=== PATIENT | female | born 2000 | race Caucasian/White ===

== ENCOUNTER 2021-06-28 15:24 | Emergency (ER) | payer MEDICAID, SELFPAY ==
[2021-06-28 15:25] VITALS: BP 101/74; PULSE 78; RESP 18; TEMP 36.8; O2SAT 99; BMI 21.3
[2021-06-28 16:05] LABS: Adenovirus,PCR Not Detected (NotDetected); Coronavirus 229E Not Detected (NotDetected); Coronavirus NL63 Not Detected (NotDetected); Coronavirus OC43 Not Detected (NotDetected); Coronovirus HKU1,PCR Not Detected (NotDetected); Human Metapneumovirus Not Detected (NotDetected)
--- NOTE | 2021-06-28 16:05 | HMH.EDUTC ---
[facility] [place] Disposition Clinical Impression: Strep throat Disposition: Home, Self-Care Condition on Discharge: Good Instructions: Strep Throat, DI for Strep Throat Additional Instructions: Drink plenty of fluids. Take tylenol or ibuprofen for pain or fever. Take the medications as directed. Follow up with your regular doctor. GO TO THE ER FOR ANY WORSENING SYMPTOMS Throw your tooth brush away and get a new one. Quarantine until you know the results of your covid-19 test. If it is positive, the health department should call you and give you further instructions about your length of Quarantine and other thing. Prescriptions: Brompheniramine/Pseudoephed/Dm [Bromfed Dm Cough Syrup] 5 ml PO Q6HP PRN #240 syrup PRN Reason: Cough Transmission Status: [facility] Ondansetron [Zofran 4mg ODT] 4 mg PO Q8HP PRN #12 tab.rapdis PRN Reason: Nausea Transmission Status: Received by [facility] Amoxicillin [Amoxicillin 500mg Tab] 500 mg PO TID 10 Days #30 tab Transmission Status: [facility] Referrals: Provider,Referral, MD [Primary Care Provider] - Time of Disposition: 16:07 Medical Decision Making - Medical Records Medical records reviewed: No: I reviewed the patient's medical records. - Adriel Inquiry Pt receiving controlled substance: No Vital Signs: 06/28/21 15:25 06/28/21 16:12 Temperature 98.3 F 98.3 F Temperature Source Oral Pulse Rate 78 Pulse Rate [Left Brachial] 78 Respiratory Rate 18 18 Blood Pressure 101/74 L Blood Pressure [Left Arm] 101/74 L Blood Pressure Mean [Left Arm] 83 Blood Pressure Source [Left Arm] Automatic Cuff Blood Pressure Position [Left Arm] Sitting 02 Sat by Pulse Oximetry 99 - Lab Data Lab results reviewed: Yes: I reviewed the patient's lab results. Orders (Tests/Meds): ORDERS Category Date Time Status Full Resp Panel w/COVID ([facility]) Routine Lab 06/28/21 15:45 Received [facility] [place] HPI - General Stated complaint: RSV exposure, congestion Time Seen by Provider: 06/28/21 16:05 Mode of Arrival: Ambulatory Source of Information: Patient Limitations: No Limitations Description of Symptoms (Recalled from Triage Doc. by RN): NIKKI C/O CONGESTION, SORE THROAT, COUGH SINCE WEDNESDAY. RECENTLY EXPOSED TO RSV HEENT Symptoms (Recalled from RN notes): Yes Resp Symptoms (Recalled from RN notes): Yes Skin Symptoms (Recalled from RN notes): No MS Symptoms (Recalled from RN notes): No Functional Status (Recalled from RN notes): WNL - History of Present Illness Provider Complaint: She c/o sore throat and feeling bad for the past 2 days. 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 - Related Data Previous Rx's Medication Instructions Recorded Amoxicillin [Amoxicillin 500mg Tab] 500 mg PO TID 10 Days #30 tab 06/28/21 Brompheniramine/Pseudoephed/Dm 5 ml PO Q6HP PRN #240 syrup 06/28/21 [Bromfed Dm Cough Syrup] Ondansetron [Zofran 4mg ODT] 4 mg PO Q8HP PRN #12 tab.rapdis 06/28/21 Allergies Allergy/AdvReac Type Severity Reaction Status Date / Time No Known Allergies Allergy Verified 06/28/21 15:57 - Worker's Comp Is this a Worker's Comp case?: No [facility] History - Hepatitis A Screen Drug use history?: No High risk sexual behaviors?: No History of sexually transmitted infection?: No Currently employed?: No Childcare worker?: No Do you have indoor plumbing?: Yes Do you have electricity?: Yes Attestation statement:: This patient has been screened for Hepatitis A risk factors. I have reviewed the patient's past medical history: Yes ROS Obtained: Yes All systems reviewed & no additional complaints - Constitutional Constitutional: Reports chills, Reports fever(s), Reports poor appetite, Reports malaise - Eyes Eyes: Denies eye discharge - ENT Ears, Nose, Mouth, and Throat: Reports as per HPI - Cardiovascular Cardiovascul
[2021-06-28 16:06] LABS: Bordetella Pertussis Not Detected (NotDetected); Chlamydophila Pneumoniae, PCR Not Detected (NotDetected); Coronavirus 19, PCR Not Detected (NotDetected); Influenza A, PCR Not Detected (NotDetected); Influenza AH1, 2009 Not Detected (NotDetected); Influenza AH1, PCR Not Detected (NotDetected); Influenza AH3,PCR Not Detected (NotDetected); Influenza B, PCR Not Detected (NotDetected); Mycoplasma Pneumoniae, PCR Not Detected (NotDetected); Parainfluenza 1, PCR Not Detected (NotDetected); Parainfluenza 2, PCR Not Detected (NotDetected); Parainfluenza 3, PCR Not Detected (NotDetected); Parainfluenza 4, PCR Not Detected (NotDetected)
[2021-06-28 16:12] VITALS: BP 101/74; PULSE 78; RESP 18; TEMP 36.8; O2SAT 99
[2021-06-28 18:24] LABS: UTC Strep Screen (Rapid) Positive (Negative)
[2021-06-28 22:13] LABS: Respiratory Syncytial Virus Detected (NotDetected); Rhinovirus/Enterovirus Detected (NotDetected)
== END 2021-06-28 16:15 | disposition home or self-care (01) ==
PROVIDERS: Emergency Provider Nurse Practitioner Family
DX: J02.0 Streptococcal pharyngitis (principal); Z20.828 Contact with and (suspected) exposure to other viral communicable diseases
CPT/HCPCS: 87581; 87633; 87798; 87880; 99203; G0463

== ENCOUNTER → 2021-07-22 20:07 | Outpatient (CLI) | payer MEDICAID, SELFPAY | PROVIDERS: Visit Provider Nurse Practitioner Family | DX: Z20.822 Contact with and (suspected) exposure to COVID-19 (principal); U07.1 COVID-19 | CPT/HCPCS: U0003 ==

== ENCOUNTER 2021-09-02 09:55 | Emergency (ER) | payer MEDICAID, SELFPAY ==
[2021-09-02 10:39] VITALS: BP 113/77; PULSE 73; RESP 19; TEMP 36.8; O2SAT 99; BMI 22.2
--- NOTE | 2021-09-02 10:52 | HMH.EDUTC ---
[facility] [place] Disposition Clinical Impression: Strep throat Disposition: Home, Self-Care Condition on Discharge: Good Instructions: Strep Throat, DI for Strep Throat, DI for Acute Bronchitis Additional Instructions: Drink plenty of fluids. Take tylenol or ibuprofen for pain or fever. Take the medications as directed. Follow up with your regular doctor. GO TO THE ER FOR ANY WORSENING SYMPTOMS Throw your tooth brush away and get a new one. Don't start the oral steroids until tomorrow, since you had the shot here today. Prescriptions: Brompheniramine/Pseudoephed/Dm [Bromfed Dm Cough Syrup] 5 ml PO Q6HP PRN #240 ml PRN Reason: Cough [facility] Ondansetron [Zofran 4mg ODT] 4 mg PO Q8HP PRN #12 tab PRN Reason: Nausea Transmission Status: Received by [facility] Cefdinir [Omnicef 300mg Capsule] 300 mg PO BID #20 cap Transmission Status: [facility] predniSONE [Prednisone 20mg Tab] 20 mg PO BID 3 Days #6 tab Transmission Status: Received by [facility] Referrals: Shirley Olson APRN [Primary Care Provider] - Forms: Work/School Release Time of Disposition: 11:37 Medical Decision Making - Medical Records Medical records reviewed: No: I reviewed the patient's medical records. - Adriel Inquiry Pt receiving controlled substance: No Vital Signs: 09/02/21 10:39 09/02/21 11:23 Temperature 98.3 F 98.3 F Temperature Source Oral Pulse Rate 73 Pulse Rate [Left] 73 Respiratory Rate 19 16 Blood Pressure 113/77 Blood Pressure [Right Arm] 113/77 Blood Pressure Mean [Right Arm] 89 02 Sat by Pulse Oximetry 99 - Lab Data Lab results reviewed: Yes: I reviewed the patient's lab results. Lab Results 09/02/21 10:57: Strep Scn Rapid Clinic Positive A 09/02/21 11:39: Chlamy pneumoniae PCR Not detected, Adenovirus (PCR) Not detected, B. pertussis DNA (PCR) Not detected, Coronavirus OC43 (PCR) Not detected, Coronavirus HKU1 (PCR) Not detected, Coronavirus 229E (PCR) Not detected, SARS-CoV-2 (PCR) Not detected, Coronavirus NL63 (PCR) Not detected, Human Metapneumovir PCR Not detected, Influenza A (H1) PCR Not detected, Influ A (H1N1/09) PCR Not detected, Influenza A (H3) PCR Not detected, Influenza Type A (PCR) Not detected, Influenza Type B (PCR) Not detected, M. pneumoniae (PCR) Not detected, Parainfluenza 1 (PCR) Not detected, Parainfluenza 2 (PCR) Not detected, Parainfluenza 3 (PCR) Not detected, Parainfluenza 4 (PCR) Not detected, RSV (PCR) Not detected, Entero/Rhino (PCR) Detected A - Radiology Data #1 Image(s): Chest Image Reviewed: Yes I reviewed the patient's radiology image, Yes I have reviewed radiologist's interpretation Preliminary Findings: Normal/NAD, No Infiltrates Seen PROCEDURE: XR CHEST 2V CLINICAL HISTORY: cough, congestion COMPARISON: No exams were available for comparison FINDINGS: The cardiomediastinal silhouette and pulmonary vascularity are within normal limits. The lungs are clear without infiltrates, suspicious nodules, or pleural effusions. No acute bony abnormalities. IMPRESSION: No acute findings. Dictated by: Casey Lang MD 09/02/2021 11:35 in [facility] HPI - General Stated complaint: cough w/mucus and blood Time Seen by Provider: 09/02/21 11:14 Mode of Arrival: Ambulatory Source of Information: Patient Limitations: No Limitations Description of Symptoms (Recalled from Triage Doc. by RN): pt c/o sore throat, productive cough with sputum and blood and n/v. pt had covid in jul. HEENT Symptoms (Recalled from RN notes): Yes (congestion and sore throat) Resp Symptoms (Recalled from RN notes): Yes (productive cough) Skin Symptoms (Recalled from RN notes): No MS Symptoms (Recalled from RN notes): No Functional Status (Recalled from RN notes): na - History of Present Illness Provider Complaint: She states that for the past 2
[2021-09-02 10:58] LABS: UTC Strep Screen (Rapid) Positive (Negative)
--- NOTE | 2021-09-02 11:12 | XR_ITS ---
PROCEDURE: XR CHEST 2V CLINICAL HISTORY: cough, congestion COMPARISON: No exams were available for comparison FINDINGS: The cardiomediastinal silhouette and pulmonary vascularity are within normal limits. The lungs are clear without infiltrates, suspicious nodules, or pleural effusions. No acute bony abnormalities. IMPRESSION: No acute findings. Dictated by: Casey Lang MD 09/02/2021 11:35 Casey Lang MD in [facility] 09/02/2021 11:35
[2021-09-02 11:23] VITALS: BP 113/77; PULSE 73; RESP 16; TEMP 36.8
[2021-09-02 12:13] LABS: Adenovirus,PCR Not Detected (NotDetected); Bordetella Pertussis Not Detected (NotDetected); Chlamydophila Pneumoniae, PCR Not Detected (NotDetected); Coronavirus 19, PCR Not Detected (NotDetected); Coronavirus 229E Not Detected (NotDetected); Coronavirus NL63 Not Detected (NotDetected); Coronavirus OC43 Not Detected (NotDetected); Coronovirus HKU1,PCR Not Detected (NotDetected); Human Metapneumovirus Not Detected (NotDetected); Influenza A, PCR Not Detected (NotDetected); Influenza AH1, 2009 Not Detected (NotDetected); Influenza AH1, PCR Not Detected (NotDetected); Influenza AH3,PCR Not Detected (NotDetected); Influenza B, PCR Not Detected (NotDetected); Mycoplasma Pneumoniae, PCR Not Detected (NotDetected); Parainfluenza 1, PCR Not Detected (NotDetected); Parainfluenza 2, PCR Not Detected (NotDetected); Parainfluenza 3, PCR Not Detected (NotDetected); Parainfluenza 4, PCR Not Detected (NotDetected); Respiratory Syncytial Virus Not Detected (NotDetected)
[2021-09-02 14:30] LABS: Rhinovirus/Enterovirus Detected (NotDetected)
== END 2021-09-02 11:52 | disposition home or self-care (01) ==
PROVIDERS: Emergency Provider Nurse Practitioner Family; PCP Nurse Practitioner Family
DX: J02.0 Streptococcal pharyngitis (principal)
CPT/HCPCS: 71046; 87581; 87632; 87798; 87880; 99202; C9803; G0463; U0003; U0005

== ENCOUNTER 2021-09-30 14:12 | Emergency (ER) | payer MEDICAID, SELFPAY ==
[2021-09-30 14:16] VITALS: BP 128/91; PULSE 85; RESP 16; TEMP 36.7; O2SAT 97; BMI 22.1
[2021-09-30 14:34] LABS: Microscopic, Urine URINE MICROSCOPIC (MICROSCOPIC)
[2021-09-30 14:35] LABS: Appearance,Urine CLEAR (Clear); Bilirubin,Urine Negative (Negative); Blood, Urine 1+ (Negative); Color,Urine YELLOW (Yellow); Glucose,Urine (UA) Negative (Negative); Ketones,Urine Negative (Negative); Leukocyte Esterase,Urine Negative (Negative); Nitrate,Urine Negative (Negative); Protein,Urine Negative (Negative); Urobilinogen,Urine 0.2 EU/dl (0.2)
[2021-09-30 14:37] LABS: Urine Pregnancy, HCG Qual. Negative (Negative)
[2021-09-30 14:48] LABS: Bacteria,Urine Trace /lpf; RBC,Urine Occasional #/hpf (0-3); Squamous Epithelial Cell,Urine Occasional #/hpf (0-5); WBC,Urine Occasional #/hpf (0-3)
--- NOTE | 2021-09-30 14:50 | HMH.EDGENADL ---
ED Disposition Clinical Impression: Menorrhagia Qualifiers: Menorrhagia type: with regular cycle Qualified Code(s): N92.0 - Excessive and frequent menstruation with regular cycle Disposition: Home, Self-Care Condition on Discharge: Good Instructions: DI for Vaginal Bleeding Additional Instructions: Call your MIXER BLENDER tomorrow for follow-up. Return to the emergency department if any concerns about increasing/severe bleeding or severe pain. Referrals: Provider,Referral, [Primary Care Provider] - - Critical Care Critical Care Time: No Attestation: On 09/30/21, the high probability of a clinically significant, sudden or life threatening deterioration of the following system(s) required my full and direct attention, intervention and personal management. The time I documented below is in addition to time spent performing reported procedures but includes the following listed in this critical care notation. Medical Decision Making - Adriel Inquiry Pt receiving controlled substance: No Vital Signs: 09/30/21 14:16 09/30/21 16:20 Temperature 98.1 F 98.1 F Temperature Source Oral Oral Pulse Rate 82 Pulse Rate [Right Radial] 85 Respiratory Rate 16 18 Blood Pressure 113/57 L Blood Pressure [Right Arm] 128/91 H Blood Pressure Mean [Right Arm] 103 Blood Pressure Source [Right Arm] Automatic Cuff Blood Pressure Position [Right Arm] Sitting 02 Sat by Pulse Oximetry 97 Oxygen Delivery Method Room Air Room Air - Lab Data Lab Results 09/30/21 14:22: Urine Color Yellow, Urine Appearance Clear, Urine pH 7.0, Ur Specific [place] 1.020, Urine Protein Negative, Urine Glucose (UA) Negative, Urine Ketones Negative, Urine Blood 1+, Urine Nitrate Negative, Urine Bilirubin Negative, Urine Urobilinogen 0.2, Ur Leukocyte Esterase Negative, Urine RBC Occasional, Urine WBC Occasional, Ur Squamous Epith Cells Occasional, Urine Bacteria Trace 09/30/21 14:22: Urine HCG, Qual Negative 09/30/21 15:05: WBC 5.7, RBC 3.92 L, Hgb 11.7 L, Hct 34.5 L, MCV 87.9, MCH 29.9, MCHC 34.1, RDW 13.8, Plt Count 242, MPV 8.6, Neut % (Auto) 40.9, Lymph % (Auto) 43.8, [place] % (Auto) 5.4, Eos % (Auto) 8.8, Baso % (Auto) 1.1, Neut # (Auto) 2.4, Lymph # (Auto) 2.5, [place] # (Auto) 0.3, Eos # (Auto) 0.5 H, Baso # (Auto) 0.1 Result diagrams: 09/30/21 15:05 Medical Decision Narrative: The patient states that she is trying to conceive and does not want any sort of hormonal therapy or oral contraceptive pills at this time. She prefers to follow-up with her MIXER BLENDER. General Adult HPI - General Chief complaint: Vaginal Bleeding Stated complaint: heavy vaginal bleeding Time Seen by Provider: 09/30/21 14:40 Mode of Arrival: Ambulatory Limitations: No Limitations Description of Symptoms (Recalled from ER Triage Doc. by RN): Pt reports started her menstrual period on Wednesday of this week. Pt she has went through 2 boxes of tampons since Wednesday. Pt reports large clots coming from vagina. Pt reports cramping more so on the L than the R. Pt reports she called her extruding press adjuster office, states her extruding press adjuster is not in today, staff advised her to come to the ER for evaluation. - History of Present Illness HPI narrative: Heavy vaginal bleeding with clots since yesterday. States she has gone through 2 boxes of tampons. She does not have any history of heavy vaginal bleeding with her menses in the past. She has had a miscarriage in May 2020. No other pregnancies. She is not currently on any control. She stopped taking control pills several months ago. Called her MIXER BLENDER today, her doctor was not in and they advised her to come to the emergency department for evaluation. - Related Data Previous Rx's Medication Instructions Recorded Brompheniramine/Pseudoephed/Dm 5 ml PO Q6HP PRN #240 ml 09/02/21 [Bromfed Dm Cough Syrup] Cefdinir [Omnicef 300mg Capsule] 300 mg PO BID #20 cap 09/02/21 Ondansetron [Zofran 4mg ODT] 4 mg PO Q8HP PRN #12 tab 09/02/21 predni
[2021-09-30 15:29] LABS: Basophils # 0.1 K/mm3 (0-0.2); Basophils % 1.1 % (0.1-2.0); Eosinophils # 0.5 K/mm3 (0.0-0.4); Eosinophils % 8.8 % (0.1-12.0); Hematocrit 34.5 % (37.0-47.0); Hemoglobin 11.7 g/dL (12.2-16.2); Lymphocytes # 2.5 K/mm3 (0.7-4.5); Lymphocytes % 43.8 % (10-50); Mean Corpuscular HGB Conc 34.1 g/dL (31.8-35.4); Mean Corpuscular Hemoglobin 29.9 pg (27.0-31.2); Mean Corpuscular Volume 87.9 fl (81-99); Mean Platelet Volume 8.6 fl (7.4-10.4); Monocytes # 0.3 K/mm3 (0.1-1.0); Monocytes % 5.4 % (1.7-9.3); Neutrophils # 2.4 K/mm3 (1.8-7.8); Neutrophils % 40.9 % (37.0-80.0); Platelet Count 242 K/mm3 (142-424); Red Blood Count 3.92 M/mm3 (4.20-5.40); Red Cell Distribution Width 13.8 % (11.5-17.5); White Blood Count 5.7 K/mm3 (4.5-13.0)
[2021-09-30 16:20] VITALS: BP 113/57; PULSE 82; RESP 18; TEMP 36.7; O2SAT 100
== END 2021-09-30 16:21 | disposition home or self-care (01) ==
PROVIDERS: Emergency Provider Emergency Medicine
DX: N92.0 Excessive and frequent menstruation with regular cycle (principal)
CPT/HCPCS: 81001; 81025; 85025; 99282

== ENCOUNTER → 2021-10-21 20:36 | Outpatient (CLI) | payer MEDICAID, SELFPAY ==
[2021-10-21 20:55] LABS: Adenovirus,PCR Not Detected (NotDetected); Bordetella Pertussis Not Detected (NotDetected); Chlamydophila Pneumoniae, PCR Not Detected (NotDetected); Coronavirus 19, PCR Not Detected (NotDetected); Coronavirus 229E Not Detected (NotDetected); Coronavirus NL63 Not Detected (NotDetected); Coronavirus OC43 Not Detected (NotDetected); Coronovirus HKU1,PCR Not Detected (NotDetected); Human Metapneumovirus Not Detected (NotDetected); Influenza A, PCR Not Detected (NotDetected); Influenza AH1, 2009 Not Detected (NotDetected); Influenza AH1, PCR Not Detected (NotDetected); Influenza AH3,PCR Not Detected (NotDetected); Influenza B, PCR Not Detected (NotDetected); Mycoplasma Pneumoniae, PCR Not Detected (NotDetected); Parainfluenza 1, PCR Not Detected (NotDetected); Parainfluenza 2, PCR Not Detected (NotDetected); Parainfluenza 3, PCR Not Detected (NotDetected); Parainfluenza 4, PCR Not Detected (NotDetected); Respiratory Syncytial Virus Not Detected (NotDetected); Rhinovirus/Enterovirus Not Detected (NotDetected)
== END ==
PROVIDERS: Visit Provider Nurse Practitioner
DX: Z20.822 Contact with and (suspected) exposure to COVID-19 (principal); J06.9 Acute upper respiratory infection, unspecified
CPT/HCPCS: 87581; 87632; 87798; C9803; U0003; U0005

== ENCOUNTER 2021-10-22 11:01 | Emergency (ER) | payer MEDICAID, SELFPAY ==
[2021-10-22 11:27] VITALS: BP 105/59; PULSE 81; RESP 16; TEMP 36.9; O2SAT 99; BMI 21.7
--- NOTE | 2021-10-22 11:40 | HMH.EDUTC ---
[facility] [place] Disposition Clinical Impression: URI (upper respiratory infection) Qualifiers: URI type: unspecified URI Qualified Code(s): J06.9 - Acute upper respiratory infection, unspecified Disposition: Home, Self-Care Condition on Discharge: Good Instructions: Sore Throat, DI for Sinusitis Additional Instructions: *Monitor Temp, Over the counter Motrin or Tylenol as directed/as needed Tylenol every 4 hours and Motrin every 6 hours (as long as your family doctor has told you that you can take it) for fever or pain. and straight to ER if unable to lower temp less than 101.0 after medication given *Warm salt water gargles may help to soothe the throat *Throat Lozenges *Warm fluids like tea with honey may help to soothe the throat *Sleep elevated *Humidifier/Vaporizer Bromfed may cause drowsiness. Know how it effects you (your child) before driving, caring for small child, or sending your child to school. Not other antihistamines/allergy medications while taking bromfed Your throat swab was sent for culture. Those results are typically sent to your primary care. Be sure to follow up in 2-3 days with your family doctor/primary care physician if no improvement so they can review those result and treat if necessary. If you don?t have a primary care doctor, I recommend you get one but in the mean time, you will have to return to a walk in clinic Follow up IMMEDIATELY for new or worsening symptoms or no Noticeable improvement over the next 48-72 hours. 911 for difficulty breathing or swallowing Prescriptions: Brompheniramine/Pseudoephed/Dm [Bromfed Dm Cough Syrup] 5 - 10 ml PO Q46H PRN #200 ml PRN Reason: Cough Transmission Status: Pending to [facility] methylPREDNISolone [Medrol 4mg tab] 4 mg PO DIRECTED #21 tab Transmission Status: Pending to [facility] Azithromycin [Z-Tom 250mg Tab] 250 mg PO DIRECTED #6 tab Transmission Status: Pending to [facility] Referrals: Provider,Referral, [Primary Care Provider] - Medical Decision Making - Adriel Inquiry Pt receiving controlled substance: No Adriel was queried for this patient: No Vital Signs: 10/22/21 11:27 Temperature 98.5 F Temperature Source Oral Pulse Rate [Left] 81 Respiratory Rate 16 Blood Pressure [Right Arm] 105/59 L Blood Pressure Mean [Right Arm] 74 02 Sat by Pulse Oximetry 99 - Lab Data Lab results reviewed: Yes: I reviewed the patient's lab results. [facility] [place] HPI - General Stated complaint: runny nose,sore throat Time Seen by Provider: 10/22/21 11:40 Mode of Arrival: Ambulatory Source of Information: Patient Limitations: No Limitations Description of Symptoms (Recalled from Triage Doc. by RN): pt c/o a cough, congestion and sore throat x4 days. HEENT Symptoms (Recalled from RN notes): Yes (congestion and sore throat) Resp Symptoms (Recalled from RN notes): Yes (cough) Skin Symptoms (Recalled from RN notes): No MS Symptoms (Recalled from RN notes): No Functional Status (Recalled from RN notes): wnl - History of Present Illness Provider Complaint: Patient states that she has been having sinus issues for over a week but for the last 3-4 days she has had a bad sore throat, cough and pressure behind her eyes States that she gets bronchitis sometimes nd feels like it is trying to move into her chest area Statse that she had URP last night and it was negative for everything so she was worried she may have strep throat or sinus infection - Related Data Previous Rx's Medication Instructions Recorded Brompheniramine/Pseudoephed/Dm 5 ml PO Q6HP PRN #240 ml 09/02/21 [Bromfed Dm Cough Syrup] Cefdinir [Omnicef 300mg Capsule] 300 mg PO BID #20 cap 09/02/21 Ondansetron [Zofran 4mg ODT] 4 mg PO Q8HP PRN #12 tab 09/02/21 predniSONE [Prednisone 20mg 20 mg PO BID 3 Days #6 tab 09/02/21 Tab] Azithromycin [Z-Tom 250mg Tab] 250 mg PO DIRECTED #6 tab 10/22/21 Brompheniramine/Pseudoephed/Dm 5 - 10 ml PO
[2021-10-22 11:58] LABS: UTC Strep Screen (Rapid) Negative (Negative)
[2021-10-22 12:00] LABS: UTC Pregnancy Test, Urine Negative (Negative)
[2021-10-22 12:11] VITALS: BP 105/59; PULSE 81; RESP 16; TEMP 36.9
== END 2021-10-22 12:11 | disposition home or self-care (01) ==
PROVIDERS: Emergency Provider Nurse Practitioner
DX: J06.9 Acute upper respiratory infection, unspecified (principal)
CPT/HCPCS: 81025; 87880; 99202; G0463

== ENCOUNTER → 2021-10-31 08:47 | Outpatient (CLI) | payer MEDICAID, SELFPAY ==
[2021-10-31 09:28] LABS: Influenza A, PCR Not Detected (NotDetected); Influenza B, PCR Not Detected (NotDetected)
[2021-10-31 10:21] LABS: Coronavirus 19, PCR Detected (NotDetected)
== END ==
PROVIDERS: Visit Provider Nurse Practitioner
DX: U07.1 COVID-19 (principal)
CPT/HCPCS: C9803; U0003; U0005

== ENCOUNTER 2021-11-28 17:58 | Emergency (ER) | payer MEDICAID, SELFPAY ==
[2021-11-28 19:32] VITALS: BP 101/54; PULSE 92; RESP 14; TEMP 37.4; O2SAT 98; BMI 22.6
--- NOTE | 2021-11-28 19:39 | HMH.EDUTC ---
[facility] [place] Clinical Impression: Abdominal pain Qualifiers: Abdominal location: right lower quadrant Qualified Code(s): R10.31 - Right lower quadrant pain Nausea & vomiting Qualifiers: Vomiting type: unspecified Qualified Code(s): R11.2 - Nausea with vomiting, unspecified Disposition: Home, Self-Care Condition on Discharge: Good Instructions: DI for Diarrhea and Traveler's Diarrhea -- Adult, DI for Diarrhea and Traveler's Diarrhea -- Child, DI for Nausea -- Adult, DI for Nausea -- Child Prescriptions: Ondansetron [Zofran 4mg ODT] 4 mg PO TIDP PRN #12 tab PRN Reason: Nausea Transmission Status: Received by [facility] Referrals: Provider,Referral, [Primary Care Provider] - Medical Decision Making - Medical Records Medical records reviewed: No: I reviewed the patient's medical records. - Adriel Inquiry Pt receiving controlled substance: No Vital Signs: 11/28/21 19:32 11/28/21 21:32 11/28/21 23:18 Temperature 99.4 F 99.2 F 98.7 F Temperature Source Oral Oral Oral Pulse Rate 88 Pulse Rate [Left] 92 H 88 Respiratory Rate 14 18 18 Blood Pressure 108/65 L Blood Pressure [Right Arm] 101/54 L 122/83 Blood Pressure Mean [Right Arm] 69 96 Blood Pressure Source Automatic Cuff Blood Pressure Source [Right Arm] Automatic Cuff Blood Pressure Position Sitting Blood Pressure Position [Right Arm] Sitting 02 Sat by Pulse Oximetry 98 100 Oxygen Delivery Method Room Air - Lab Data Lab results reviewed: Yes: I reviewed the patient's lab results. Lab Results 11/28/21 19:33: Strep Scn Rapid Clinic Negative 11/28/21 19:33: Influenza Type A Ag Negative, Influenza Type B Ag Negative 11/28/21 20:03: Urine Color Dark yellow, Urine Appearance Clear, Urine pH 6.0, Ur Specific [place] > 1.030 H, Urine Protein Trace, Urine Glucose (UA) Negative, Urine Ketones Large, Urine Blood Negative, Urine Nitrate Negative, Urine Bilirubin 1+ A, Urine Urobilinogen 0.2, Ur Leukocyte Esterase Trace, Tst Clinic Negative 11/28/21 20:23: WBC 4.8, RBC 4.40, Hgb 12.9, Hct 38.6, MCV 87.6, MCH 29.3, MCHC 33.5, RDW 13.5, Plt Count 171, MPV 9.6, Neut % (Auto) 62.4, Lymph % (Auto) 27.0, [place] % (Auto) 6.6, Eos % (Auto) 2.9, Baso % (Auto) 1.0, Neut # (Auto) 3.0, Lymph # (Auto) 1.3, [place] # (Auto) 0.3, Eos # (Auto) 0.1, Baso # (Auto) 0.1 11/28/21 20:23: Sodium 134 L, Potassium 4.0, Chloride 99, Carbon Dioxide 27, Anion Gap 12.0, BUN 11, Creatinine 0.60, Estimated Creat Clear 150, Estimated GFR 127, Est GFR ( Amer) 154, Glucose 90, Calcium 9.4, Total Bilirubin 1.7 H, AST 30, ALT 12, Alkaline Phosphatase 37 L, Total Protein 7.6, Albumin 4.7, Globulin 2.9, Albumin/Globulin Ratio 1.6, Amylase 66, Lipase 46 Result diagrams: 11/28/21 20:23 11/28/21 20:23 Orders (Tests/Meds): ED MEDICATIONS Discontinued Medications Generic Name Dose Route Start Last Admin Trade Name Freq PRN Reason Stop Dose Admin Lactated Ringer's 1,000 mls @ 999 mls/hr 11/28/21 21:30 11/28/21 21:29 Lactated Ringer's 1000 Ml Bag IV 11/28/21 22:30 999 mls/hr .Q1H1M GWEN Administration Iopamidol 75 ml 11/28/21 22:11 11/28/21 22:11 Iopamidol-370 (76%);100ml Bottle IV 11/28/21 22:12 75 ml ONCE ONE Administration Ondansetron HCl 4 mg 11/28/21 21:27 11/28/21 21:29 Ondansetron 4mg/2ml Vial IV 11/28/21 21:28 4 mg ONCE ONE Administration Ondansetron HCl 4 mg 11/28/21 22:58 11/28/21 23:11 Ondansetron 4mg Odt SL 11/28/21 22:59 4 mg ONCE ONE Administration Sodium Chloride 10 ml 11/28/21 22:11 11/28/21 22:11 Sodium Chloride 0.9% 10ml Syr (Rad Only) IV 11/28/21 22:12 10 ml ONCE ONE Administration ORDERS Category Date Time Status Strep Screen Confirmation Routine Micro 11/28/21 19:33 Received [facility] [place] HPI - General Stated complaint: vomiting,weak Time Seen by Provider: 11/28/21 19:39 Mode of Arrival: Ambulatory Source of Information: Patient Limitations: No Limitations
[2021-11-28 19:52] LABS: UTC Influenza A Antigen Negative (Negative); UTC Influenza B Antigen Negative (Negative)
[2021-11-28 19:53] LABS: UTC Strep Screen (Rapid) Negative (Negative)
--- NOTE | 2021-11-28 20:07 | PC.NURSE ---
2000 spoke with Fernanda CUI about sending pt over. awaiting room assignment
[2021-11-28 20:25] LABS: Apearance,Urine Clear (Clear); Color,Urine Dark Yellow (Yellow)
[2021-11-28 20:26] LABS: Bilirubin,Urine 1+ (Negative); Blood, Urine Negative (Negative); Glucose,Urine (UA) Negative (Negative); Ketones,Urine Large (Negative); Protein,Urine Trace (Negative); Specific Gravity, Urine > 1.030 (1.005-1.030); UTC Leukocyte Esterase,Urine Trace (Negative); UTC Nitrate,Urine Negative (Negative); UTC Pregnancy Test, Urine Negative (Negative); Urobilinogen,Urine 0.2 EU/dl (0.2)
[2021-11-28 20:33] LABS: Basophils # 0.1 K/mm3 (0-0.2); Eosinophils # 0.1 K/mm3 (0.0-0.4); Eosinophils % 2.9 % (0.1-12.0); Hematocrit 38.6 % (37.0-47.0); Hemoglobin 12.9 g/dL (12.2-16.2); Lymphocytes # 1.3 K/mm3 (0.7-4.5); Mean Corpuscular HGB Conc 33.5 g/dL (31.8-35.4); Mean Corpuscular Hemoglobin 29.3 pg (27.0-31.2); Mean Corpuscular Volume 87.6 fl (81-99); Mean Platelet Volume 9.6 fl (7.4-10.4); Monocytes # 0.3 K/mm3 (0.1-1.0); Monocytes % 6.6 % (1.7-9.3); Neutrophils % 62.4 % (37.0-80.0); Platelet Count 171 K/mm3 (142-424); Red Cell Distribution Width 13.5 % (11.5-17.5); White Blood Count 4.8 K/mm3 (4.5-13.0)
[2021-11-28 20:47] LABS: Alanine Aminotransferase 12 U/L (12-78); Albumin Level 4.7 g/dl (3.5-5.0); Albumin/Globulin Ratio 1.6 (1.1-1.8); Alkaline Phosphatase 37 U/L (38-126); Amylase 66 U/L (30-110); Aspartate Amino Transferase 30 U/L (14-36); Bilirubin,Total 1.7 mg/dl (0.2-1.3); Blood Urea Nitrogen 11 mg/dl (7-17); Calcium 9.4 mg/dl (8.4-10.2); Carbon Dioxide 27 mmol/L (22.0-30.0); Chloride 99 mmol/L (98-107); Creatinine Clearance Estimated 150 mL/min (50-200); Estimated Glomerular Filt Rate 127 ml/min (>60); GFR (African American) 154 ML/MIN (>60); Globulin 2.9 g/dL (1.3-3.2); Glucose 90 mg/dl (74-100); Lipase 46 U/L (23-300); Sodium 134 mmol/L (136-145); Total Protein,Serum 7.6 g/dl (6.3-8.2)
--- NOTE | 2021-11-28 21:09 | PC.NURSE ---
Stephenie called to check on a room assignment in the ED. spoke with Fernanda CUI, saying it would just be a few more minutes.
[2021-11-28 21:32] VITALS: BP 122/83; PULSE 88; RESP 18; TEMP 37.3; O2SAT 100; BMI 22.6
--- NOTE | 2021-11-28 21:47 | CT_ITS ---
PROCEDURE INFORMATION: Exam: CT Abdomen And Pelvis With Contrast Exam date and time: 11/28/2021 9:47 PM Age: 21 years old Clinical indication: Abdominal pain; Localized; Right lower quadrant (rlq); Additional info: Rlq pain concern for appy TECHNIQUE: Imaging protocol: Computed tomography of the abdomen and pelvis with contrast. Radiation optimization: All CT scans at this facility use at least one of these dose optimization techniques: automated exposure control; mA and/or kV adjustment per patient size (includes targeted exams where dose is matched to clinical indication); or iterative reconstruction. Contrast material: ISOVUE; Contrast volume: 75 ml; Contrast route: IV; COMPARISON: CR XR CHEST 2V 09/02/2021 11:20 AM FINDINGS: Lungs: No mass/infiltrate at either lung base. No pleural effusion. Liver: The liver is normal in size and attenuation. No intrahepatic biliary dilitation. Gallbladder and bile ducts: Normal. No calcified stones. No ductal dilation. Gallbladder wall thickness is normal. Pancreas: Normal. No ductal dilation. Spleen: Normal. No splenomegaly. Adrenal glands: Normal. No mass. Kidneys and ureters: Normal. No hydronephrosis. Stomach and bowel: Unremarkable. No obstruction. No mucosal thickening. Small bowel mesentery is normal. Appendix: Unremarkable. Intraperitoneal space: Unremarkable. No free air. No significant fluid collection. Vasculature: Unremarkable. No abdominal aortic aneurysm. Lymph nodes: There are multiple lymph nodes identified within the small bowel mesentery of the right lower quadrant. Largest lymph node within the right lower quadrant measures slightly less than 1 cm in size. This is a nonspecific finding. Urinary bladder: Unremarkable as visualized. Reproductive: The uterus is normal size. There is a well-circumscribed 3.5 x 4.3 x 3.1 cm low-attenuation mass within the left adnexal region. Hounsfield unit attenuation is close to water. This likely represents a prominent left ovarian cyst. This could be further evaluated with ultrasound of the pelvis for further evaluation. Bones/joints: Unremarkable. No acute fracture. Soft tissues: There is a small supraumbilical hernia which contains fat. IMPRESSION: 1. No evidence of acute process within the abdomen or pelvis. 2. There are multiple lymph nodes present within mesentery of the right lower quadrant although these lymph nodes are all less than 1 cm in size. They are likely reactive in nature. The possibility of mesenteric adenitis is less likely however not entirely excluded. 3. Findings within the left adnexal region likely reflect a large left ovarian cyst. Correlation with ultrasound could be performed.
--- NOTE | 2021-11-28 22:22 | HMH.EDGENADL ---
ED Disposition Clinical Impression: Abdominal pain Qualifiers: Abdominal location: right lower quadrant Qualified Code(s): R10.31 - Right lower quadrant pain Nausea & vomiting Qualifiers: Vomiting type: unspecified Qualified Code(s): R11.2 - Nausea with vomiting, unspecified Disposition: Home, Self-Care Condition on Discharge: Good Prescriptions: Ondansetron [Zofran 4mg ODT] 4 mg PO TIDP PRN #12 tab PRN Reason: Nausea Transmission Status: Pending to [id number] Referrals: Provider,Referral, [Primary Care Provider] - - Critical Care Critical Care Time: No Attestation: On 11/28/21, the high probability of a clinically significant, sudden or life threatening deterioration of the following system(s) required my full and direct attention, intervention and personal management. The time I documented below is in addition to time spent performing reported procedures but includes the following listed in this critical care notation. Medical Decision Making - Medical Records Medical records reviewed: Yes: I reviewed the patient's medical records. - Adriel Inquiry Pt receiving controlled substance: No Vital Signs: 11/28/21 19:32 11/28/21 21:32 Temperature 99.4 F 99.2 F Temperature Source Oral Oral Pulse Rate [Left] 92 H 88 Respiratory Rate 14 18 Blood Pressure [Right Arm] 101/54 L 122/83 Blood Pressure Mean [Right Arm] 69 96 Blood Pressure Source [Right Arm] Automatic Cuff Blood Pressure Position [Right Arm] Sitting 02 Sat by Pulse Oximetry 98 100 - Lab Data Lab Results 11/28/21 19:33: Strep Scn Rapid Clinic Negative 11/28/21 19:33: Influenza Type A Ag Negative, Influenza Type B Ag Negative 11/28/21 20:03: Urine Color Dark yellow, Urine Appearance Clear, Urine pH 6.0, Ur Specific [place] > 1.030 H, Urine Protein Trace, Urine Glucose (UA) Negative, Urine Ketones Large, Urine Blood Negative, Urine Nitrate Negative, Urine Bilirubin 1+ A, Urine Urobilinogen 0.2, Ur Leukocyte Esterase Trace, Tst Clinic Negative 11/28/21 20:23: WBC 4.8, RBC 4.40, Hgb 12.9, Hct 38.6, MCV 87.6, MCH 29.3, MCHC 33.5, RDW 13.5, Plt Count 171, MPV 9.6, Neut % (Auto) 62.4, Lymph % (Auto) 27.0, [place] % (Auto) 6.6, Eos % (Auto) 2.9, Baso % (Auto) 1.0, Neut # (Auto) 3.0, Lymph # (Auto) 1.3, [place] # (Auto) 0.3, Eos # (Auto) 0.1, Baso # (Auto) 0.1 11/28/21 20:23: Sodium 134 L, Potassium 4.0, Chloride 99, Carbon Dioxide 27, Anion Gap 12.0, BUN 11, Creatinine 0.60, Estimated Creat Clear 150, Estimated GFR 127, Est GFR ( Amer) 154, Glucose 90, Calcium 9.4, Total Bilirubin 1.7 H, AST 30, ALT 12, Alkaline Phosphatase 37 L, Total Protein 7.6, Albumin 4.7, Globulin 2.9, Albumin/Globulin Ratio 1.6, Amylase 66, Lipase 46 Result diagrams: 11/28/21 20:23 11/28/21 20:23 Orders (Tests/Meds): ED MEDICATIONS Discontinued Medications Generic Name Dose Route Start Last Admin Trade Name Freq PRN Reason Stop Dose Admin Lactated Ringer's 1,000 mls @ 999 mls/hr 11/28/21 21:30 11/28/21 21:29 Lactated Ringer's 1000 Ml Bag IV 11/28/21 22:30 999 mls/hr .Q1H1M GWEN Administration Iopamidol 75 ml 11/28/21 22:11 11/28/21 22:11 Iopamidol-370 (76%);100ml Bottle IV 11/28/21 22:12 75 ml ONCE ONE Administration Ondansetron HCl 4 mg 11/28/21 21:27 11/28/21 21:29 Ondansetron 4mg/2ml Vial IV 11/28/21 21:28 4 mg ONCE ONE Administration Sodium Chloride 10 ml 11/28/21 22:11 11/28/21 22:11 Sodium Chloride 0.9% 10ml Syr (Rad Only) IV 11/28/21 22:12 10 ml ONCE ONE Administration ORDERS Category Date Time Status Strep Screen Confirmation Routine Micro 11/28/21 19:33 Received Medical Decision Narrative: Patient is a 21-year-old female who presents to the ED today for further evaluation of nausea vomiting and abdominal pain. Patient is well-appearing on reevaluation, no acute distress with vital signs that are stable. Patient with right lower quadrant pain in the worse location on e
[2021-11-28 23:18] VITALS: BP 108/65; PULSE 88; RESP 18; TEMP 37.1
== END 2021-11-28 23:22 | disposition home or self-care (01) ==
LOC: UTC 18:01 → ER 21:25
PROVIDERS: Emergency Provider Nurse Practitioner Family
DX: R10.31 Right lower quadrant pain (principal); R50.9 Fever, unspecified
CPT/HCPCS: 74177; 80053; 81003; 81025; 82150; 83690; 85025; 87804; 87880; 96365; 96372; 99283; J2405; Q9967

== ENCOUNTER 2022-02-06 09:07 | Emergency (ER) | payer MEDICAID, SELFPAY ==
[2022-02-06 09:40] VITALS: BP 101/76; PULSE 75; RESP 16; TEMP 37; O2SAT 100; BMI 21.7
--- NOTE | 2022-02-06 09:48 | XR_ITS ---
FINAL REPORT CLINICAL HISTORY: PAIN, heard pop x1 month ago. pain and numb since FINDINGS: RIGHT SHOULDER Three views demonstrate no acute fracture or dislocation. The visualized joint spaces are normally aligned. The soft tissues are unremarkable. IMPRESSION: No acute process. Reviewed, Interpreted and Dictated by Ace Naylor MD Transcribed by Mary Szymanski Authenticated by Ace Naylor MD on 02/06/2022 10:56:23 AM [facility]
--- NOTE | 2022-02-06 10:10 | HMH.EDUTC ---
[facility] Disposition Clinical Impression: Trigger point of right shoulder region Right shoulder pain Qualifiers: Chronicity: unspecified Qualified Code(s): M25.511 - Pain in right shoulder Disposition: Home, Self-Care Condition on Discharge: Good Instructions: Shoulder Tendinopathy, DI for Shoulder Pain Additional Instructions: Rest the extremity, apply heat for 15 minutes as tolerated three or four times per day, Take the medication as prescribed. Follow up with Dr. Faith (orthopedics). I put in a referral but you need to call his office and schedule an appointment. Follow up with your regular doctor. GO TO THE ER FOR ANY WORSENING SYMPTOMS Prescriptions: methylPREDNISolone [Medrol] 4 mg PO DIRECTED 6 Days #21 packet Transmission Status: Received by [id number] Referrals: Chery Olson APRN [Primary Care Provider] - Time of Disposition: 10:39 Medical Decision Making - Medical Records Medical records reviewed: No: I reviewed the patient's medical records. - Adriel Inquiry Pt receiving controlled substance: No Vital Signs: 02/06/22 09:40 02/06/22 10:37 Temperature 98.6 F 98.6 F Temperature Source Oral Pulse Rate 75 Pulse Rate [Left Brachial] 75 Respiratory Rate 16 16 Blood Pressure 101/76 L Blood Pressure [Left Arm] 101/76 L Blood Pressure Mean [Left Arm] 84 Blood Pressure Source [Left Arm] Automatic Cuff Blood Pressure Position [Left Arm] Sitting 02 Sat by Pulse Oximetry 100 Oxygen Delivery Method Room Air [facility] HPI - General Stated complaint: right shoulder pains, no accident Time Seen by Provider: 02/06/22 10:10 Mode of Arrival: Ambulatory Source of Information: Patient Limitations: No Limitations Description of Symptoms (Recalled from Triage Doc. by RN): PATIENT C/O RIGHT SHOULDER PAIN AND NUMBNESS X 3 WEEKS. 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 She denies any known injury. She has been having to do more labor with that shoulder and arm at her new job. She states that her symptoms are worse after she has worked a shift of work. - Related Data Previous Rx's Medication Instructions Recorded methylPREDNISolone [Medrol] 4 mg PO DIRECTED 6 Days #21 02/06/22 packet Allergies Allergy/AdvReac Type Severity Reaction Status Date / Time No Known Allergies Allergy Verified 07/22/21 18:15 - Worker's Comp Is this a Worker's Comp case?: No [facility] History - Hepatitis A Screen Drug use history?: No High risk sexual behaviors?: No History of sexually transmitted infection?: No Currently employed?: No Childcare worker?: No Do you have indoor plumbing?: Yes Do you have electricity?: Yes Attestation statement:: This patient has been screened for Hepatitis A risk factors. I have reviewed the patient's past medical history: Yes Laterality Cases: Bilateral: Myringotomy (Ear Tubes) Other Surgeries: Yes: Dilation and Curettage - Social History Smoking Status: Never smoker Alcohol Intake: never Occupational Status: other Family Hx:: Non-contributory ROS Obtained: Yes All systems reviewed & no additional complaints - Constitutional Constitutional: Denies chills, Denies fever(s) - ENT Ears, Nose, Mouth, and Throat: Denies dizziness, Denies otalgia, Denies sore throat - Cardiovascular Cardiovascular: Denies chest pain - Respiratory Respiratory: Denies chest congestion, Denies cough Physical Exam - General General appearance: alert, in no apparent distress - Head Head exam: atraumatic, nor
[2022-02-06 10:37] VITALS: BP 101/76; PULSE 75; RESP 16; TEMP 37; O2SAT 100
== END 2022-02-06 10:43 | disposition home or self-care (01) ==
PROVIDERS: Emergency Provider Nurse Practitioner Family; PCP Nurse Practitioner Family
DX: M25.511 Pain in right shoulder (principal); R20.0 Anesthesia of skin
CPT/HCPCS: 73030; 99212; G0463

== ENCOUNTER → 2022-03-17 14:06 | Outpatient (CLI) | payer MEDICAID, SELFPAY ==
--- NOTE | 2022-03-17 14:10 | XR_ITS ---
FINAL REPORT CLINICAL HISTORY: 3 view for shoulder pain, specialized views for Dr Faith. FINDINGS: RIGHT SHOULDER: 3 views of the right shoulder were obtained. There is no acute fracture or dislocation. There is mild elevation of the distal clavicle. There is no soft tissue abnormality. IMPRESSION: Mild elevation of the distal clavicle. Mild AC joint separation cannot be excluded. Reviewed, Interpreted and Dictated by Migel English III, MD Transcribed by Stuart Lieberman Authenticated by Migel Egnlish III, MD on 03/17/2022 03:54:[address] [facility]
== END ==
PROVIDERS: PCP Nurse Practitioner Family; Visit Provider Orthopaedic Surgery
DX: M25.511 Pain in right shoulder (principal)
CPT/HCPCS: 73030

== ENCOUNTER 2022-09-29 09:28 | Emergency (ER) | payer MEDICAID, SELFPAY ==
[2022-09-29] VITALS (7 sets, daily range): BP systolic 119–124; BP diastolic 66–85; PULSE 60–81; RESP 18–20; TEMP 36.4; O2SAT 99–100; BMI 21.7
--- NOTE | 2022-09-29 09:48 | HMH.EDGENADL ---
Discharge Plan Disposition Patient Disposition: Home, Self-Care Condition: Good Prescriptions Prescriptions: No Action ibuprofen 800 mg tablet 800 mg PO Q8H 14 Days Qty: 42 0RF Referrals Follow up/Referrals: Chery Olson APRN [Primary Care Provider] - See instructions Activity Restrictions/Add. Instructions Additional Instructions/Restrictions: Return immediately for worsening abdominal pain or other concerns. You may take Tylenol as needed for discomfort. Follow-up as scheduled with your OB doctor. Clinical Impressions Clinical Impression: Abdominal pain Discharge ED Provider: Poncho Chaney General Adult HPI General Chief complaint: PAIN Stated complaint: 7 weeks antepartum RT side abd pain Time Seen by Provider: 09/29/22 09:30 Mode of Arrival: Ambulatory Source of Information: Patient Limitations: No Limitations Description of Symptoms (Recalled from ER Triage Doc. by RN): c/o right upper quad pain that started 4-5 days ago with pain coming and going and get worse after she eats certain things. pt is approx 7 weeks History of Present Illness HPI narrative: Patient presents with a 5-day history of intermittent right sided abdominal discomfort. She states the discomfort is predominantly in the right upper quadrant. There is been no nausea vomiting or diarrhea she denies fever she denies hematuria or dysuria. She states the pain is mild to moderate and exacerbated occasionally with eating food. She is approximately 7 weeks by dates. Related Data Previous Rx's Medication Instructions Recorded ibuprofen 800 mg tablet 800 mg PO Q8H 2 weeks #42 tabs 03/17/22 Allergies Allergy/AdvReac Type Severity Reaction Status Date / Time No Known Allergies Allergy Verified 03/17/22 15:55 PFSH PFSH Social History Smoking Status: Never smoker alcohol intake: never current occupational status: employed Travel in the last 8 weeks: None ROS Obtained: Yes All systems reviewed & no additional complaints except as documented Constitutional Constitutional: Reports system reviewed and no additional complaints, except as documented Eyes Eyes: Reports system reviewed and no additional complaints, except as documented ENT Ears, Nose, Mouth, and Throat: Reports system reviewed and no additional complaints, except as documented Cardiovascular Cardiovascular: Reports system reviewed and no additional complaints, except as documented Respiratory Respiratory: Reports system reviewed and no additional complaints, except as documented Gastrointestinal Gastrointestingal: Reports system reviewed and no additional complaints, except as documented Genitourinary Female Genitourinary: Reports system reviewed and no additional complaints, except as documented Musculoskeletal Musculoskeletal: Reports system reviewed and no additional complaints, except as documented Integumentary/Breasts Skin/Breast: Reports system reviewed and no additional complaints, except as documented Neurologic Neurologic: Reports system reviewed and no additional complaints, except as documented Endocrine Endocrine: Reports system reviewed and no additional complaints, except as documented Hematologic/Lymphatic Henatologic/Lymphatic: Reports system reviewed and no additional complaints, except as documented Allergic/Immunologic Allergic/Immunologic: Reports system reviewed and no additional complaints, except as documented Physical Exam General General appearance: alert and in no apparent distress Head Head exam: atraumatic Eye Eye exam: Present normal appearance ENT ENT exam: Present normal exam Neck Neck exam: Present normal inspection Chest Chest inspection: Present normal inspection Respiratory Respiratory exam: Present normal lung sounds bilaterally Cardiovascular Cardiovascular exam: Present regular rate and normal rhythm Abdominal Exam Abdominal exam: Present soft and tenderness (There is mild right upper q
[2022-09-29 10:12] LABS: Basophils # 0.1 K/mm3 (0-0.2); Eosinophils # 0.2 K/mm3 (0.0-0.4); Eosinophils % 4.2 % (0.1-12.0); Hematocrit 33.6 % (37.0-47.0); Hemoglobin 11.5 g/dL (12.2-16.2); Lymphocytes # 2.1 K/mm3 (0.7-4.5); Lymphocytes % 36.4 % (10-50); Mean Corpuscular HGB Conc 34.1 g/dL (31.8-35.4); Mean Corpuscular Hemoglobin 29.7 pg (27.0-31.2); Mean Corpuscular Volume 87.2 fl (81-99); Mean Platelet Volume 8.4 fl (7.4-10.4); Monocytes # 0.3 K/mm3 (0.1-1.0); Neutrophils % 52.4 % (37.0-80.0); Platelet Count 219 K/mm3 (142-424); Red Blood Count 3.86 M/mm3 (4.20-5.40); Red Cell Distribution Width 13.8 % (11.5-17.5); White Blood Count 5.7 K/mm3 (4.8-10.8)
[2022-09-29 10:12] LABS: Microscopic, Urine URINE MICROSCOPIC (MICROSCOPIC)
[2022-09-29 10:19] LABS: Appearance,Urine CLEAR (Clear); Bilirubin,Urine Negative (Negative); Blood, Urine Negative (Negative); Color,Urine YELLOW (Yellow); Glucose,Urine (UA) Negative (Negative); Ketones,Urine Negative (Negative); Leukocyte Esterase,Urine Negative (Negative); Nitrate,Urine Negative (Negative); PH,Urine 7.5 (5.0-8.5); Protein,Urine Negative (Negative); Specific Gravity, Urine 1.015 (1.005-1.030); Urobilinogen,Urine 0.2 EU/dl (0.2)
[2022-09-29 10:20] LABS: Chloride 106 mmol/L (98-107); Potassium 4.3 mmoL/L (3.5-5.1); Sodium 137 mmol/L (136-145)
[2022-09-29 10:22] LABS: Alanine Aminotransferase 10 U/L (12-78); Aspartate Amino Transferase 27 U/L (14-36); Blood Urea Nitrogen 6 mg/dl (7-17); Creatinine Clearance Estimated 172 mL/min (50-200); Estimated Glomerular Filt Rate 156 ml/min (>60); GFR (African American) 188 ML/MIN (>60)
[2022-09-29 10:23] LABS: Albumin Level 4.2 g/dl (3.5-5.0); Albumin/Globulin Ratio 1.6 (1.1-1.8); Alkaline Phosphatase 29 U/L (38-126); Anion Gap 14.3 mEq/L (5-15); Bilirubin,Total 0.5 mg/dl (0.2-1.3); Calcium 9.1 mg/dl (8.4-10.2); Carbon Dioxide 21 mmol/L (22.0-30.0); Globulin 2.6 g/dL (1.3-3.2); Glucose 93 mg/dl (74-100); Lipase 70 U/L (23-300); Total Protein,Serum 6.8 g/dl (6.3-8.2)
[2022-09-29 10:32] LABS: Bacteria,Urine Trace /lpf
[2022-09-29 10:40] LABS: HCG,Quantitative 3023 mIU/ml (0-5.42)
--- NOTE | 2022-09-29 10:49 | US_ITS ---
FINAL REPORT CLINICAL HISTORY: r/o ectopic FINDINGS: Transvaginal sonographic images of the pelvis were obtained. There is a small anechoic intrauterine focus. No pole is identified. There is no cardiac activity. Findings are indeterminate, may represent early gestational sac measuring 7 x 4 mm. There is a complex irregular hypoechoic focus in the lower uterine segment which may be related to mild hemorrhage. The ovaries are unremarkable. IMPRESSION: Questionable early intrauterine gestational sac. Follow-up quantitative beta HCG and ultrasound is recommended. Hypoechoic debris in the lower uterine segment, may be related to small amount hemorrhage. Reviewed, Interpreted and Dictated by Ace Naylor MD Transcribed by Lorri Wyman Authenticated and [facility]
--- NOTE | 2022-09-29 10:49 | US_ITS ---
FINAL REPORT CLINICAL HISTORY: ruq pain FINDINGS: RIGHT UPPER QUADRANT ULTRASOUND Sonographic images of the right upper quadrant were obtained. The pancreas is partially obscured.The liver has an unremarkable appearance.The gallbladder appears normal without evidence of gallstones.The common duct is normal. Limited images of the right kidney are normal. IMPRESSION: No acute process. Reviewed, Interpreted and Dictated by Ace Naylor MD Transcribed by Lorri Wyman Authenticated and [facility]
--- NOTE | 2022-09-29 11:22 | PC.NURSE ---
Notified rad of US orders
--- NOTE | 2022-09-29 11:22 | PC.NURSE ---
Rounded on pt and updated on POC. No new needs at this time
--- NOTE | 2022-09-29 11:23 | PC.NURSE ---
PT going to rad
--- NOTE | 2022-09-29 12:24 | PC.NURSE ---
pt returned from rad
== END 2022-09-29 14:38 | disposition home or self-care (01) ==
PROVIDERS: Emergency Provider Emergency Medicine; PCP Nurse Practitioner Family
DX: O26.891 Other specified pregnancy related conditions, first trimester (principal); R10.9 Unspecified abdominal pain; Z3A.01 Less than 8 weeks gestation of pregnancy
CPT/HCPCS: 76705; 76817; 80053; 81001; 83690; 84702; 85025; 99284

== ENCOUNTER 2023-01-14 08:05 | Emergency (ER) | payer BC, SELFPAY ==
[2023-01-14 08:15] VITALS: BP 108/43; PULSE 75; RESP 20; TEMP 36.8; O2SAT 99; BMI 21.9
--- NOTE | 2023-01-14 08:32 | EXP.UTC ---
Discharge Plan Disposition Patient Disposition: Home, Self-Care Condition: Good Prescriptions Prescriptions: New ofloxacin 0.3 % drops See Rx Instructions .ROUTE .COMPLEX Qty: 5 0RF Rx Instructions: put 2 drps into left eye every 2 h x 2 days, then 1 drp 4 times/day days 3-7 cephalexin 500 mg capsule 500 mg PO QID Qty: 40 0RF Referrals Follow up/Referrals: Chery Olson APRN [Primary Care Provider] - See instructions Activity Restrictions/Add. Instructions Additional Instructions/Restrictions: Use the eye drops as directed. Take the oral antibiotics as directed. Apply warm wet compresses to your left eye 4 times per day for the next few days. Strict hand washing in the house hold, because conjunctivitis is very contagious. Follow up with your regular doctor. GO TO THE ER FOR ANY WORSENING SYMPTOMS OR CONCERNS Clinical Impressions Clinical Impression: Hordeolum of left eye Stand Alone Forms Stand Alone Forms: Work/School Release Instructions Patient Instructions: How to Instill Eye Drops, Hordeolum, DI for Hordeolum Discharge ED Provider: Simeon Page [facility] General Stated complaint: LT eye inflammation Mode of Arrival: Ambulatory Source of Information: Patient Limitations: No Limitations Time Seen by Provider: 01/14/23 08:24 Description of Symptoms (Recalled from Triage Doc. by RN): inflammation of left eye thinks maybe a stye HEENT Symptoms (Recalled from RN notes): Yes Resp Symptoms (Recalled from RN notes): No Skin Symptoms (Recalled from RN notes): No MS Symptoms (Recalled from RN notes): No Functional Status (Recalled from RN notes): n/a History of Present Illness Provider Complaint: She states that for the past 3 days she has had left eye irritation, redness, and swelling of an area on her upper eye lid. She denies any injury or foreign body. She has been exposed to pink eye recently. Related Data Previous Rx's Medication Instructions Recorded cephalexin 500 mg capsule 500 mg PO QID #40 caps 01/14/23 ofloxacin 0.3 % eye drops See Rx Instructions ophthalmic 01/14/23 (eye) .COMPLEX #5 mL Allergies Allergy/AdvReac Type Severity Reaction Status Date / Time No Known Allergies Allergy Verified 01/14/23 08:25 Worker's Comp Is this a Worker's Comp case?: No PFSH PFSH Disclaimer: The information contained in this section may have been updated after the patient was seen, as this information can be updated by other users. Social History Smoking Status: Never smoker alcohol intake: never current occupational status: employed Travel in the last 8 weeks: None ROS Obtained: Yes All systems reviewed & no additional complaints except as documented Constitutional Constitutional: Denies chills and Denies fever(s) Eyes Eyes: Denies blurry vision, Denies change in vision and Reports eye discharge ENT Ears, Nose, Mouth, and Throat: Denies dizziness, Denies otalgia and Denies sore throat Cardiovascular Cardiovascular: Denies chest pain Respiratory Respiratory: Denies shortness of breath, Denies chest congestion, Denies cough, Denies stridor and Denies wheezing Gastrointestinal Gastrointestingal: Denies nausea or vomiting Musculoskeletal Musculoskeletal: Reports system reviewed and no additional complaints, except as documented and Denies arthralgias Integumentary/Breasts Skin/Breast: Denies rash Neurologic Neurologic: Denies dizziness and Denies paresthesias Allergic/Immunologic Allergic/Immunologic: Denies wheezing Physical Exam General General appearance: alert and in no apparent distress Head Head exam: atraumatic, normocephalic and normal inspection Eye Eye exam: Present PERRL, EOMI, conjunctival redness, conjunctival injection and discharge ENT ENT exam: Present normal exam, normal oropharynx, mucous membranes moist, TM's normal bilaterally and normal external ear exam Neck Neck
[2023-01-14 09:14] VITALS: BP 108/43; PULSE 75; RESP 20; TEMP 36.8; O2SAT 99
== END 2023-01-14 09:13 | disposition home or self-care (01) ==
PROVIDERS: Emergency Provider Nurse Practitioner Family; PCP Nurse Practitioner Family
DX: H00.014 Hordeolum externum left upper eyelid (principal)
CPT/HCPCS: 99212; 99213; G0463

== ENCOUNTER 2023-03-06 05:33 | Outpatient (CLI) | payer BC, SELFPAY ==
[2023-03-06 05:41] VITALS: BMI 23.8
[2023-03-06 05:53] LABS: Microscopic, Urine URINE MICROSCOPIC (MICROSCOPIC)
[2023-03-06 06:04] LABS: Appearance,Urine CLEAR (Clear); Bilirubin,Urine Negative (Negative); Blood, Urine Negative (Negative); Color,Urine YELLOW (Yellow); Glucose,Urine (UA) Negative (Negative); Ketones,Urine Negative (Negative); Leukocyte Esterase,Urine TRACE (Negative); Nitrate,Urine Negative (Negative); Protein,Urine Negative (Negative); Specific Gravity, Urine <= 1.005 (1.005-1.030); Urobilinogen,Urine 0.2 EU/dl (0.2)
[2023-03-06 06:07] VITALS: BP 119/76; PULSE 72; RESP 18; TEMP 36.6; O2SAT 99
[2023-03-06 06:08] VITALS: BP 119/76; PULSE 72; RESP 18; TEMP 36.6; O2SAT 99; BMI 23.8
[2023-03-06 06:16] LABS: Benzodiazepines Screen,Urine Negative ng/ml (<200)
[2023-03-06 06:17] LABS: Amphetamine/Metha Screen,Urine Negative ng/ml (<1000); Barbiturates Screen,Urine Negative ng/ml (<200)
[2023-03-06 06:18] LABS: Bacteria,Urine Trace /lpf; Cannabinoid Screen,Urine Negative ng/ml (<50); WBC,Urine Occasional #/hpf (0-3)
[2023-03-06 06:19] LABS: Cocaine Screen,Urine Negative ng/ml (<300); Methadone Screen,Urine Negative ng/ml (<300)
[2023-03-06 06:20] LABS: Opiate Screen,Urine Negative ng/ml (<300); Phencyclidine Screen,Urine Negative ng/ml (<25)
--- NOTE | 2023-03-06 07:00 | US_ITS ---
PROCEDURE INFORMATION: Exam: US Abdomen, Limited; Right Upper Quadrant Exam date and time: 03/06/2023 9:00 AM Age: 23 years old Clinical indication: Nausea and vomiting; Abdominal pain; Generalized; ; Additional info: Ruq pain TECHNIQUE: Imaging protocol: Real time ultrasound of the abdomen with image documentation. Limited exam focused on the right upper quadrant. COMPARISON: No relevant prior studies available. FINDINGS: Liver: Normal echotexture. No significant intrahepatic biliary ductal dilation. Gallbladder: The gallbladder is adequately distended without evidence of gallstones. Normal wall thickness without pericholecystic fluid. Sonographic Kelly's sign is negative. Biliary ducts: Common duct: 2 mm. Pancreas: Visualized pancreas normal. Right kidney: Measures 10.9 cm and demonstrates severe hydronephrosis and proximal hydroureter. Otherwise normal echotexture, normal renal cortical thickness without nephrolithiasis. Other findings: No evidence of ascites. IMPRESSION: 1. Severe RIGHT hydronephrosis and proximal hydroureter consistent with mid-distal ureter obstruction. 2. Recommend correlation with pertinent clinical history and follow-up as indicated.
[2023-03-06 07:09] LABS: Basophils % 0.3 % (0.1-2.0); Eosinophils # 0.3 K/mm3 (0.0-0.4); Eosinophils % 3.1 % (0.1-12.0); Hematocrit 32.1 % (37.0-47.0); Hemoglobin 10.6 g/dL (12.2-16.2); Lymphocytes # 2.1 K/mm3 (0.7-4.5); Lymphocytes % 25.9 % (10-50); Mean Corpuscular HGB Conc 33.1 g/dL (31.8-35.4); Mean Corpuscular Hemoglobin 29.9 pg (27.0-31.2); Mean Corpuscular Volume 90.3 fl (81-99); Mean Platelet Volume 8.8 fl (7.4-10.4); Monocytes # 0.6 K/mm3 (0.1-1.0); Monocytes % 6.8 % (1.7-9.3); Neutrophils # 5.3 K/mm3 (1.8-7.8); Neutrophils % 63.8 % (37.0-80.0); Platelet Count 187 K/mm3 (142-424); Red Blood Count 3.55 M/mm3 (4.20-5.40); White Blood Count 8.2 K/mm3 (4.8-10.8)
[2023-03-06 07:13] LABS: Chloride 105 mmol/L (98-107); Potassium 3.7 mmoL/L (3.5-5.1); Sodium 135 mmol/L (136-145)
[2023-03-06 07:16] LABS: Alanine Aminotransferase 12 U/L (12-78); Albumin Level 3.4 g/dl (3.5-5.0); Albumin/Globulin Ratio 1.1 (1.1-1.8); Alkaline Phosphatase 50 U/L (38-126); Anion Gap 7.7 mEq/L (5-15); Aspartate Amino Transferase 23 U/L (14-36); Bilirubin,Total 0.5 mg/dl (0.2-1.3); Blood Urea Nitrogen 5 mg/dl (7-17); Carbon Dioxide 26 mmol/L (22.0-30.0); Creatinine Clearance Estimated 186 mL/min (50-200); Estimated Glomerular Filt Rate 154 ml/min (>60); GFR (African American) 187 ML/MIN (>60); Total Protein,Serum 6.4 g/dl (6.3-8.2)
[2023-03-06 07:17] LABS: Amylase 84 U/L (30-110); Calcium 8.2 mg/dl (8.4-10.2); Glucose 82 mg/dl (74-100); Lipase 60 U/L (23-300)
--- NOTE | 2023-03-06 07:22 | ECG_ITS ---
APPROVED REPORT Exam: Resting ECG HR:67 bpm ECG Measurements Heart Rate 67 AXES OH 147 P 13 QRSd 84 QRS 70 QT 386 T 17 QTc 402 Conclusion SINUS RHYTHM NONSPECIFIC T-WAVE ABNORMALITY BORDERLINE ECG UNCONFIRMED REPORT Electronically signed by : Jaylon Umana MD 03/06/2023 15:38:54
--- NOTE | 2023-03-06 09:31 | EXP.HPDC ---
General Admission date:: 03/06/23 Discharge date: 03/06/23 *Admission Date: 03/06/23 *Chief complaint: Sudden onset shortness of air and RUQ and right upper back pain *History of present illness: Mrs Hitesh Rebolledo is a 23 yo at 27w2d who presents to [facility] for shortness of air and RUQ/right upper back pain that woke her from sleep around 0200 this morning. She is an unattached patient. She receives care at [facility] in [place]. She admits she has been having some right back pain at her visits but this morning at 0200 pain increased and she felt short of air. Denies fever/chills, chest pain and palpitations. Denies contractions, leakage of fluid and vaginal bleeding. Baby is very active. She denies past medical history of asthma. [facility] Disclaimer: The information contained in this section may have been updated after the patient was seen, as this information can be updated by other users. Medical History Hordeolum of left eye Hydronephrosis of right kidney with 27 completed weeks gestation Renal colic on right side RUQ abdominal pain Social History Smoking Status: Never smoker alcohol intake: never current occupational status: employed Travel in the last 8 weeks: None Review of Systems Review of Systems Review of systems:: pertinent systems reviewed and negative unless documented below *Cardiovascular Cardiovascular: Reports dyspnea *Respiratory Respiratory: Reports dyspnea *Gastrointestinal Gastrointestinal: Reports abdominal pain *Musculoskeletal Musculoskeletal: Reports back pain Exam Data for Last 24 hours Vital signs and Labs for Last 24 Hours: Temp Pulse Resp BP Pulse Ox 97.8 F 72 18 119/76 99 03/06/23 06:08 03/06/23 06:08 03/06/23 06:08 03/06/23 06:08 03/06/23 06:08 Laboratory Results - last 24 hr 03/06/23 05:52: Urine Color Yellow, Urine Appearance Clear, Urine pH 7.0, Ur Specific [place] <= 1.005, Urine Protein Negative, Urine Glucose (UA) Negative, Urine Ketones Negative, Urine Blood Negative, Urine Nitrate Negative, Urine Bilirubin Negative, Urine Urobilinogen 0.2, Ur Leukocyte Esterase Trace, Urine RBC None, Urine WBC Occasional, Ur Squamous Epith Cells 3-5, Urine Bacteria Trace 03/06/23 05:52: Urine Opiates Screen Negative, Urine Methadone Screen Negative, Ur Barbituates Screen Negative, Ur Phencyclidine Scrn Negative, Ur Amphetamines Screen Negative, U Benzodiazepines Scrn Negative, Urine Cocaine Screen Negative, U Marijuana (THC) Screen Negative 03/06/23 07:00: Amylase 84, Lipase 60 03/06/23 07:00: WBC 8.2, RBC 3.55 L, Hgb 10.6 L, Hct 32.1 L, MCV 90.3, MCH 29.9, MCHC 33.1, RDW 13.0, Plt Count 187, MPV 8.8, Neut % (Auto) 63.8, Lymph % (Auto) 25.9, [place] % (Auto) 6.8, Eos % (Auto) 3.1, Baso % (Auto) 0.3, Neut # (Auto) 5.3, Lymph # (Auto) 2.1, [place] # (Auto) 0.6, Eos # (Auto) 0.3, Baso # (Auto) 0.0 03/06/23 07:00: Sodium 135 L, Potassium 3.7, Chloride 105, Carbon Dioxide 26, Anion Gap 7.7, BUN 5 L, Creatinine 0.50 L, Estimated Creat Clear 186, Estimated GFR 154, Est GFR ( Amer) 187, Glucose 82, Calcium 8.2 L, Total Bilirubin 0.5, AST 23, ALT 12, Alkaline Phosphatase 50, Total Protein 6.4, Albumin 3.4 L, Globulin 3.0, Albumin/Globulin Ratio 1.1 I & O for Last 24 hours: Intake & Output 03/03/23 03/04/23 03/05/23 03/06/23 23:59 23:59 23:59 23:59 Weight 147 lb 6 oz Constitutional Constitutional: no acute distress *Routine HEENT Exam Head: Present normocephalic and atraumatic Eye: Absent conjunctivae pink ENT: Present mucous membranes moist and dentition normal *Routine Neck Exam Neck: Present full ROM *Routine Respiratory Exam Respiratory: Present CTA bilaterally and normal respiratory effort *Routine Cardiovascular Exam Cardiovascular: Present RRR *Routine Abdominal Exam Abdominal: Present soft (Gravid); Absent tenderness *Ro
== END 2023-03-06 10:25 | disposition home or self-care (01) ==
LOC: OBOUT 05:35 → OB 05:36
PROVIDERS: PCP Nurse Practitioner Family; Visit Provider Obstetrics & Gynecology
DX: O26.892 Other specified pregnancy related conditions, second trimester (principal); Z3A.27 27 weeks gestation of pregnancy; R10.11 Right upper quadrant pain
CPT/HCPCS: 59025; 76705; 80053; 80305; 81001; 82150; 83690; 85025; 93005; 96365; 96367; G0463

== ENCOUNTER 2023-12-27 08:59 | Emergency (ER) | payer BC, SELFPAY ==
[2023-12-27 10:40] VITALS: BP 112/76; PULSE 76; RESP 21; TEMP 37; O2SAT 100; BMI 25.0
--- NOTE | 2023-12-27 10:56 | ED_ITS ---
Discharge Plan Disposition Patient Disposition: Home, Self-Care Condition: Good Prescriptions Prescriptions: No Action ofloxacin 0.3 % drops See Rx Instructions .ROUTE .COMPLEX Qty: 5 0RF Rx Instructions: put 2 drps into left eye every 2 h x 2 days, then 1 drp 4 times/day days 3-7 cephalexin 500 mg capsule 500 mg PO QID Qty: 40 0RF hydrocodone-acetaminophen 5-325 mg tablet 1 tab PO Q6H PRN (Reason: pain) Qty: 8 0RF Referrals Follow up/Referrals: Chery Olson APRN [Primary Care Provider] - See instructions Activity Restrictions/Add. Instructions Additional Instructions/Restrictions: *Monitor Temp, Over the counter Motrin or Tylenol as directed/as needed Tylenol every 4 hours and Motrin every 6 hours (as long as your family doctor has told you that you can take it) for fever or pain. and straight to ER if unable to lower temp less than 101.0 after medication given *Humidifier/Vaporizer Follow up IMMEDIATELY for new or worsening symptoms or no Noticeable improvement over the next 48-72 hours. 911 for difficulty breathing or swallowing You were tested for today for Upper Respiratory Panel with COVID19 your test result should be back in the next 24 hours, you may check your results on the [facility] [employer] Health Portal if your COVID is positive? you must quarantine for 5 days Clinical Impressions Clinical Impression: Exposure to COVID-19 virus Instructions Patient Instructions: COVID-19 Viral Test Discharge ED Provider: Melissa Rosa [facility] [place] General Stated complaint: tested for covid Mode of Arrival: Ambulatory Source of Information: Patient Limitations: No Limitations Time Seen by Provider: 12/27/23 10:56 Description of Symptoms (Recalled from Triage Doc. by RN): PATIENT REQUESTING COVID TEST D/T EXPOSURE, DENIES SYMPTOMS HEENT Symptoms (Recalled from RN notes): No Resp Symptoms (Recalled from RN notes): No Skin Symptoms (Recalled from RN notes): No MS Symptoms (Recalled from RN notes): No Functional Status (Recalled from RN notes): WNL History of Present Illness Provider Complaint: Patient states she has been around her that tested positive for COVID yesterday States that she isnt having any symptoms she wanted to come in and get tested for COVID Related Data Previous Rx's Medication Instructions Recorded cephalexin 500 mg capsule 500 mg PO QID #40 caps 01/14/23 ofloxacin 0.3 % eye drops See Rx Instructions ophthalmic 01/14/23 (eye) .COMPLEX #5 mL hydrocodone 5 mg-acetaminophen 325 1 tab PO Q6H PRN pain #8 tabs 03/06/23 mg tablet Allergies Allergy/AdvReac Type Severity Reaction Status Date / Time No Known Allergies Allergy Verified 01/14/23 08:25 Worker's Comp Is this a Worker's Comp case?: No [facility] Disclaimer: The information contained in this section may have been updated after the patient was seen, as this information can be updated by other users. Medical History Hordeolum of left eye Hydronephrosis of right kidney with 27 completed weeks gestation Renal colic on right side RUQ abdominal pain Social History Smoking Status: Never smoker alcohol intake: never current occupational status: employed Travel in the last 8 weeks: None ROS Obtained: Yes All systems reviewed & no additional complaints except as documented and Yes Systems reviewed as appropriate & no additional complaints except as documented Constitutional Constitutional: Reports system reviewed and no additional complaints, except as documented, Reports as per HPI, Denies body ache, Denies chills, Denies fever(s) and Denies headache(s) ENT Ears, Nose, Mouth, and Throat: Reports system reviewed and no additional complaints, except as documented, Reports as per HPI, Denies headache(s) and Reports sore throat Cardiovascular Cardiovascular: Reports system reviewed and no additional complaints, except as documented and Reports as per HPI Respiratory Respiratory: Reports system reviewed and no additional complaints, except as documented and Reports as per HPI Gastrointestinal Gastrointestingal: Reports system reviewed and no additional complaints, except as documented and as per HPI Musculoskeletal Musculoskeletal: Reports system reviewed and no additional complaints, except as documented and Reports as per HPI Neurologic Neurologic: Denies headache(s) Physical Exam General General appearance: alert and in no apparent distress ENT ENT exam: Present mucous membranes moist Respiratory Respiratory exam: Present normal lung sounds bilaterally; Absent respiratory distress or wheezes Cardiovascular Cardiovascular exam: Present regular rate, normal rhythm and normal heart sounds Abdominal Exam Abdominal exam: Present soft and normal bowel sounds; Absent distention or tenderness Neurological Exam Neurological exam: Present alert, oriented X3 and normal gait Medical Decision Making Adriel Inquiry Pt receiving controlled substance: No Adriel was queried for this patient: No Vital Signs: 12/27/23 10:40 Temperature 98.6 F Temperature Source Oral Pulse Rate [Left Brachial] 76 Respiratory Rate 21 Blood Pressure [Left Arm] 112/76 Blood Pressure Mean [Left Arm] 88 Blood Pressure Source [Left Arm] Automatic Cuff Blood Pressure Position [Left Arm] Sitting 02 Sat by Pulse Oximetry 100 Oxygen Delivery Method Room Air Orders (Tests/Meds): ORDERS Category Date Time Status Covid-19 Nasal PCR (H) Routine Lab 12/27/23 10:31 Received
[2023-12-27 11:05] VITALS: BP 112/76; PULSE 76; RESP 21; TEMP 37; O2SAT 100
== END 2023-12-27 11:09 | disposition home or self-care (01) ==
PROVIDERS: Emergency Provider Nurse Practitioner; PCP Nurse Practitioner Family
DX: Z20.822 Contact with and (suspected) exposure to COVID-19 (principal)
CPT/HCPCS: 87635; 99212; G0463

== ENCOUNTER 2024-02-15 14:10 | Outpatient (CLI) | payer BC, SELFPAY ==
[2024-02-15 14:05] LABS: Basophils # 0.1 K/mm3 (0-0.2); Basophils % 1.3 % (0.1-2.0); Eosinophils # 0.1 K/mm3 (0.0-0.4); Eosinophils % 1.4 % (0.1-12.0); Hemoglobin 12.6 g/dL (12.2-16.2); Lymphocytes # 2.5 K/mm3 (0.7-4.5); Lymphocytes % 43.2 % (10-50); Mean Corpuscular HGB Conc 32.4 g/dL (31.8-35.4); Mean Corpuscular Hemoglobin 29.1 pg (27.0-31.2); Monocytes # 0.7 K/mm3 (0.1-1.0); Monocytes % 12.5 % (1.7-9.3); Neutrophils # 2.4 K/mm3 (1.8-7.8); Neutrophils % 41.5 % (37.0-80.0); Platelet Count 243 K/mm3 (142-424); Red Blood Count 4.33 M/mm3 (4.20-5.40); Red Cell Distribution Width 13.8 % (11.5-17.5); White Blood Count 5.8 K/mm3 (4.8-10.8)
[2024-02-15 15:36] LABS: Chloride 104 mmol/L (98-107)
[2024-02-15 15:37] LABS: Potassium 4.3 mmoL/L (3.5-5.1); Sodium 138 mmol/L (136-145)
[2024-02-15 15:39] LABS: Blood Urea Nitrogen 9 mg/dl (7-17); Estimated Glomerular Filt Rate 104 ml/min (>60); GFR (African American) 125 ML/MIN (>60)
[2024-02-15 15:40] LABS: Alanine Aminotransferase 13 U/L (12-78); Albumin Level 4.4 g/dl (3.5-5.0); Albumin/Globulin Ratio 1.7 (1.1-1.8); Alkaline Phosphatase 48 U/L (38-126); Anion Gap 10.3 mEq/L (5-15); Aspartate Amino Transferase 27 U/L (14-36); Bilirubin,Total 1.1 mg/dl (0.2-1.3); Calcium 9.8 mg/dl (8.4-10.2); Carbon Dioxide 28 mmol/L (22.0-30.0); Chol/HDL Ratio 2.1 (1-3.5); Cholesterol 169 mg/dl (140-200); Globulin 2.6 g/dL (1.3-3.2); Glucose 80 mg/dl (74-100); HDL Cholesterol 81 mg/dl (40-60); Triglycerides 87 mg/dl (30-150); VLDL Cholesterol 17 mg/dL (0-40)
[2024-02-15 15:51] LABS: Direct LDL Cholesterol 76.94 mg/dL (100-129)
[2024-02-15 15:56] LABS: 25-OH Vitamin D, Total 27.7 ng/mL (30-100)
[2024-02-15 15:58] LABS: Free T4 (Free Thyroxine) 1.07 ng/dl (0.78-2.19)
[2024-02-15 16:11] LABS: Thyroid Stimulating Hormone 1.24 uIU/mL (0.465-4.68)
[2024-02-15 16:15] LABS: Ferritin 21.3 ng/ml (6.24-137)
[2024-02-15 16:32] LABS: C-Reactive Protein < 0.3 mg/L (0-4)
[2024-02-16 09:09] LABS: Triiodothyronine (T3) Free 3.4 pg/mL (2.0-4.4)
== END 2024-02-15 23:59 ==
LOC: LAB.DROPOF 14:10
PROVIDERS: PCP Nurse Practitioner Family; Visit Provider Nurse Practitioner Family
DX: R00.0 Tachycardia, unspecified (principal); R55 Syncope and collapse; R06.09 Other forms of dyspnea; D50.9 Iron deficiency anemia, unspecified; R42 Dizziness and giddiness; R11.0 Nausea; E55.9 Vitamin D deficiency, unspecified; Z68.22 Body mass index [BMI] 22.0-22.9, adult
CPT/HCPCS: 80053; 80061; 82306; 82728; 84439; 84443; 84481; 85025; 86140

== ENCOUNTER 2024-02-16 16:34 | Outpatient (CLI) | payer BC, SELFPAY ==
--- NOTE | 2024-02-16 16:52 | ECG_ITS ---
APPROVED REPORT Exam: Resting ECG HR:81 bpm ECG Measurements Heart Rate 81 AXES SD 150 P 67 QRSd 90 QRS 88 QT 356 T 51 QTc 393 Conclusion SINUS RHYTHM WITH SINUS ARRHYTHMIA NORMAL ECG UNCONFIRMED REPORT Electronically signed by : Jaylon Umana MD 02/17/2024 13:45:45
== END 2024-02-16 23:59 ==
LOC: RT 16:35
PROVIDERS: PCP Nurse Practitioner Family; Visit Provider Nurse Practitioner Family
DX: R00.0 Tachycardia, unspecified (principal); R42 Dizziness and giddiness; R55 Syncope and collapse; R06.09 Other forms of dyspnea; R11.0 Nausea; D50.9 Iron deficiency anemia, unspecified
CPT/HCPCS: 93005; 93225

== ENCOUNTER → 2024-02-22 10:56 | Day surgery (SDC) | payer BC, SELFPAY ==
[2024-02-22 11:00] VITALS: BP 111/60; PULSE 71; RESP 18; TEMP 36.8; O2SAT 99; BMI 33.7
--- NOTE | 2024-02-23 08:15 | EXP.TILT ---
Findings:: INDICATIONS:?The patient is a 24-year-old female with past medical history of syncope since high school for the last 4-5 years. The patient is also complaining of dizziness and blurry vision prior to syncopal episode. She was referred here by PCP for tilt table. The symptoms occur infrequently but seem to be worsening. TECHNIQUE:?Risks and benefits explained to the patient. Consent obtained. She was laying flat with a Blood pressure of 115/69, HR 60. in Standing position her blood pressure was 111/70 and heart rate 81. She was standing up on the tilt tablet for 30 minutes at a 70 degree angle and her heart rate went up to 91 and blood pressure was still in 113/67. The patient felt dizzy at that time and heart rate was in the 91 and blood pressure was 113/67. The patient felt nauseous and felt hot when moved into standing position. She did not pass out, symptoms resolved quickly. COMPLICATIONS:?None. Tilt table was then terminated after 30 minutes SUMMARY:?Positive tilt table for possible POTS with 31bpm increase of heart rate with minimal decrease of blood pressure. This is a positive
== END ==
LOC: RT 10:57
PROVIDERS: PCP Nurse Practitioner Family; Visit Provider Nurse Practitioner Family
DX: R55 Syncope and collapse (principal); G90.A Postural orthostatic tachycardia syndrome [POTS]
CPT/HCPCS: 93660

== ENCOUNTER 2024-02-28 13:33 | Outpatient (CLI) | payer BC, SELFPAY ==
--- NOTE | 2024-02-28 13:35 | CA_ITS ---
APPROVED REPORT EXAM: Comprehensive 2D, Doppler, and color-flow Echocardiogram Measurement Operator: Hillary Gamez RVT Ht: 5 ft 6 in Wt: 140lbs BSA: 1.72 BP: 102/80 mmHg Indications: SVT,SYNCOPE,DIZZINESS,PALPS,MURMUR 2D Dimensions LA Volume 30.20 mL LA Volume Index 17.56 mL/m2 (M/F) 16-34 M-Mode Dimensions RVDd 2.66 cm (0.9-2.6) LA Diam 2.62 cm (1.9-4.0) LVDd 4.47 cm (3.5-5.7) LVDs 3.22 cm (3.5-5.7) IVSd 0.50 cm (0.6-1.1) PWd 0.59 cm (0.6-1.1) EF (Teich) 54.30% FS 28.00% EDV (Teich) 91.00 mL ESV (Teich) 41.60 mL LV Diastology E Decel Time 213 (160-240 msec) E/A Ratio 1.6 Aortic Valve ADY Index 1.20 cm2/m2 AoV Peak Fuad. 132.0 (50-130 cm/s) AO Peak GR. 7.00 mmHg AO Mean GR. 2.90 (<5 mmHg) AO VTI 24.4 (18-25 cm) ADY (VTI) 2.11 (2.5-4.5 cm2) Mitral Valve MV E Max Fuad. 92.0 (40-130 cm/s) MV A Velocity 59.0 (40-130 cm/s) E/A Ratio 1.57 MV PHT 62.0 ms Pulmonary Valve PV Peak Velocity 67.0 (50-150 cm/s) Tricuspid Valve TR P. Velocity 272.00 cm/s RAP Estimate 10.00 mmHg RVSP 39.60 mmHg Left Ventricle The left ventricle is normal size. The left ventricular systolic function is normal. The left ventricular ejection fraction is within the normal range. There is normal left ventricular wall thickness. There is normal LV segmental wall motion. The left ventricular diastolic function is normal. LVEF is 55%. Right Ventricle The right ventricle is normal size. The right ventricular systolic function is normal. Atria The left atrium size is normal. The right atrium size is normal. There is no Doppler evidence of interatrial shunt. Aortic Valve The aortic valve opens well. There is no aortic valvular stenosis. No aortic regurgitation is present. Mitral Valve The mitral valve is normal in structure. No evidence of mitral valve stenosis. There is no mitral valve regurgitation noted. Tricuspid Valve The tricuspid valve leaflets are thin and pliable. Trace tricuspid regurgitation. There is insufficient TR jet to estimate RVSP. Pulmonic Valve The pulmonary valve is normal in structure. Trace pulmonic regurgitation. Great Vessels The aortic root is normal in size. The ascending aorta is not well visualized. IVC is normal in size and collapses >50% with inspiration. Pericardium There is no pericardial effusion. Other Information Study Quality: Adequate Conclusion Normal biventricular systolic function. No significant valvular stenosis or regurgitation. Electronically signed by : Cheri Harris MD 03/04/2024 14:38:11
== END 2024-02-28 23:59 ==
LOC: RT 13:33
PROVIDERS: PCP Nurse Practitioner Family; Visit Provider Nurse Practitioner Family
DX: R42 Dizziness and giddiness (principal); R55 Syncope and collapse; R00.0 Tachycardia, unspecified
CPT/HCPCS: 93306

== ENCOUNTER 2024-03-28 11:54 | Outpatient (CLI) | payer BC, SELFPAY | END 2024-03-28 23:59 | disposition home or self-care (01) | LOC: RT 11:54 | PROVIDERS: PCP Nurse Practitioner Family; Visit Provider Nurse Practitioner Family | DX: R06.09 Other forms of dyspnea; R42 Dizziness and giddiness; I47.11 Inappropriate sinus tachycardia, so stated; R53.83 Other fatigue | CPT/HCPCS: 93270 ==

== ENCOUNTER 2024-04-03 12:00 | Outpatient (CLI) | payer BC, SELFPAY ==
--- NOTE | 2024-04-03 12:04 | CT_ITS ---
APPROVED REPORT Hand Buffer: CLINICAL INDICATION Chest Pain TECHNIQUE Image Acquisition: A 128 slice MDCT scanner ([employer] View) was used for data acquisition. A noncontrast coronary calcium scan was performed. A CT attenuation threshold of 130 Hounsfield units (HU) was used for the detection of calcium in contiguous voxels of 1 sq mm in area to be counted as individual lesions. Bolus tracking in the ascending aorta with a threshold of 180 HU was performed. Immediately afterwards, ECG synchronized cardiac CT was then performed from the cardiac base to apex using retrospective gating with ECG tube current modulation. A total of 85 mL of Isovue 370 mg/mL contrast medium was administered at 5 mL/sec followed by a saline flush using a biphasic injection protocol. A tube voltage of 120 KVp was used. The patient received no medications prior to the cardiac CT. The average heart rate at the time of acquisition was 61 bpm and regular. Image Reconstruction Transaxial images were reconstructed at 0.67 mm slide thickness. Data was reviewed interactively on an advanced workstation capable of 2 and 3-dimensional displays in all conventional reconstruction formats, including multiplanar reformations, maximum intensity projections, curved multiplanar reformations, and volume rendered reconstructions. When applicable, selected routine images describing the relevant coronary anatomy and pathology were saved and sent to PACS. Complications None Technical Quality Overall image quality was good. Coronary artery opacification was adequate. Total DLP (Dose-Length Product) is 2429.8 mGy-cm. The reported value represents the total of one or more individual components during the CT acquisition of this date and at this time, and as such, the same value may appear in more than one CT report depending on the interpreting/reporting physicians. COMPARISON None FINDINGS CT Coronary Calcium Scoring LMA (Left Main Artery) = 0 LAD (Left Anterior Descending) = 0 LCX (Left Coronary Circumflex) = 0 RCA (Right Coronary Artery) = 0 Total Calcium Score = 0 using the AJ-130 method. The interpretation of the calcium heart score is based on the following continuum*: 0 = no calcified plaque detected (risk of coronary artery disease is very low ??? less than 5%) 1-10 = calcium detected in extremely minimal levels (risk of coronary diseases is still low ??? less than 10%) 11-100 = mild levels of plaque detected with certainty (mild or minimal narrowing of heart arteries is likely) 101-400 = definite,at least moderate levels of plaque detected (relatively high risk of a heart attack within 3-5 years) >401-999 = extensive levels of plaque detected (high risk of heart attack, high levels of vascular disease are present, high likelihood of at least one significant coronary narrowing) *The calcium heart score quantifies the burden of coronary calcification/plaque in the coronary arteries. The calcium heart score is not able to evaluate the presence or burden of non-calcified (i.e. soft) plaque. There is no identifiable calcification in the aortic valve, mitral annulus or mitral valve, pericardium, or myocardium. Coronary CT Angiography The coronary arterial system is right dominant. Quantitative Stenosis Grading: Left Main (LM): The left main originates normally from the left sinus of Valsalva. The LM bifurcates into the left anterior descending artery and left circumflex artery. The LM is patent with no evidence of atherosclerosis. Left Anterior Descending (LAD) and Diagonal Branches: The LAD gives off 3 diagonal branch(es). The LAD and its branches are patent with no evidence of atherosclerosis. There is no evidence of LAD-myocardial bridge. Left Circumflex (LCX) and Obtuse Marginals (OM): The LCX gives off 2 Obtuse Marginal (OM) branch(es). The LCX and its branches are patent with no evidence of atherosclerosis. Right Coronary Artery (RCA): The RCA originates normally from the right sinus of Valsalva. The RCA gives off a posterior descending artery (PDA) and posterolateral (PL) branches. The RCA and its branches are patent with no evidence of atherosclerosis. Non-Coronary Cardiac Findings: Analysis of the left ventricular (LV) structure and function was performed after 3-D reconstruction of the LV from axial images, with user-corrected automatic contouring for assessment of LV volumes and user-defined reconstruction from oblique planes for measurement of 3-D cardiac structure and function. -The left ventricle systolic function is normal -There is no left atrial appendage filling defect. Two right pulmonary veins and two left pulmonary veins drain normally into the left atrium. -No pericardial thickening or calcification. -Central and branch pulmonary arteries in the [id number] are unremarkable. -Thoracic aorta within the visualized thoracic aortic-branches in the [id number] is unremarkable. Extracardiac Structures No significant extra-cardiac findings. Note, however, that this study is focused on the cardiac findings. IMPRESSION -No coronary calcification with an Agatston score = 0 using the AJ-130 method. -No evidence of significant flow-limiting atherosclerosis of the coronary arteries. -No evidence of coronary anomalies or myocardial bridges. -CAD-RADS 0. Management recommendations per ACC/AHA guidelines*, as clinically appropriate. *Recommendations: CAD RADS 0: Reassurance. Consider non-atherosclerotic causes of chest pain. CAD RADS 1: Consider non-atherosclerotic causes of chest pain. Consider preventive therapy and risk factor modification. CAD RADS 2: Consider non-atherosclerotic causes of chest pain. Consider preventive therapy and risk factor modification, particularly for patients with nonobstructive plaque in multiple segments. CAD RADS 3: Consider further functional testing. Consider symptom-guided anti-ischemic and preventive pharmacotherapy as well as risk factor modification per published guideline statements. CAD RADS 4A: Consider further functional testing or invasive coronary angiography with revascularization per published guideline statements. Consider symptom-guided anti-ischemic and preventive pharmacotherapy as well as risk factor modification per published guideline statements. CAD RADS 4B: Invasive coronary angiography recommended with revascularization per published guideline statements. Consider symptom-guided anti-ischemic and preventive pharmacotherapy as well as risk factor modification per published guideline statements. CAD RADS 5: Consider invasive angiography and/or viability assessment with revascularization per published guideline statements. Consider symptom-guided anti-ischemic and preventive pharmacotherapy as well as risk factor modification per published guideline statements. CRITICAL RESULT None COMMUNICATION Per this written report The coronary and cardiac findings of this CCTA were reviewed, reported, and signed by Sandor Harris MD (Director Of Institutional Research) Conclusion Electronically signed by : Cheri Harris MD 04/05/2024 00:39:45
[2024-04-03 12:18] VITALS: BMI 22.6
[2024-04-03 12:29] VITALS: BP 98/51; PULSE 62; RESP 18; O2SAT 98
[2024-04-03 12:49] LABS: Chloride 106 mmol/L (98-107); Sodium 136 mmol/L (136-145)
[2024-04-03 12:50] LABS: Potassium 4.3 mmoL/L (3.5-5.1)
[2024-04-03 12:52] LABS: Blood Urea Nitrogen 9 mg/dl (7-17); Creatinine Clearance Estimated 97 mL/min (50-200); Estimated Glomerular Filt Rate 78 ml/min (>60); GFR (African American) 94 ML/MIN (>60)
[2024-04-03 12:53] LABS: Anion Gap 12.3 mEq/L (5-15); Calcium 9.2 mg/dl (8.4-10.2); Carbon Dioxide 22 mmol/L (22.0-30.0); Glucose 84 mg/dl (74-100)
[2024-04-03 13:10] VITALS: BP 96/47; PULSE 65; RESP 18; O2SAT 96
--- NOTE | 2024-04-03 13:10 | PC.NURSE ---
TO CT ROOM, NO NITRO GIVEN D/T SBP LESS THAN 100
[2024-04-03 13:12] LABS: Urine Pregnancy, HCG Qual. Negative (Negative)
[2024-04-03] MEDS: IOPAMIDOL-370 (76%);100ML BOTTLE 85 ML IV (13:18)
[2024-04-03] MEDS: SODIUM CHLORIDE 0.9% 10ML SYR (RAD ONLY) 10 ML IV (13:18)
[2024-04-03] MEDS: 0.9 % SODIUM CHLORIDE 50 ML VIAL IV (13:19)
[2024-04-03 13:22] VITALS: BP 103/64; PULSE 79; RESP 18; O2SAT 96
== END 2024-04-03 13:40 | disposition home or self-care (01) ==
PROVIDERS: PCP Nurse Practitioner Family; Visit Provider Nurse Practitioner Family
DX: I47.11 Inappropriate sinus tachycardia, so stated (principal); R53.83 Other fatigue; R42 Dizziness and giddiness; R06.09 Other forms of dyspnea
CPT/HCPCS: 75571; 75574; 80048; 81025; Q9967

== ENCOUNTER 2025-02-21 07:35 | Outpatient (CLI) | payer BC, SELFPAY ==
[2025-02-21 07:40] LABS: Microscopic, Urine URINE MICROSCOPIC (MICROSCOPIC)
[2025-02-21 07:59] LABS: Basophils % 0.8 % (0.1-2.0); Eosinophils # 0.2 K/mm3 (0.0-0.4); Eosinophils % 4.5 % (0.1-12.0); Hematocrit 37.4 % (37.0-47.0); Hemoglobin 12.6 g/dL (12.2-16.2); Lymphocytes # 2.7 K/mm3 (0.7-4.5); Mean Corpuscular HGB Conc 33.7 g/dL (31.8-35.4); Mean Corpuscular Hemoglobin 28.6 pg (27.0-31.2); Mean Platelet Volume 10.2 fl (7.4-10.4); Monocytes # 0.4 K/mm3 (0.1-1.0); Monocytes % 8.5 % (1.7-9.3); Neutrophils # 1.7 K/mm3 (1.8-7.8); Platelet Count 235 K/mm3 (142-424); Red Cell Distribution Width 12.9 % (11.5-17.5); White Blood Count 5.1 K/mm3 (4.8-10.8)
[2025-02-21 08:02] LABS: Appearance,Urine CLEAR (Clear); Bilirubin,Urine Negative (Negative); Blood, Urine TRACE-I (Negative); Color,Urine YELLOW (Yellow); Glucose,Urine (UA) Negative (Negative); Ketones,Urine Negative (Negative); Leukocyte Esterase,Urine Negative (Negative); Nitrate,Urine Negative (Negative); PH,Urine 6.5 (5.0-8.5); Protein,Urine Negative (Negative); Urobilinogen,Urine 0.2 EU/dl (0.2)
[2025-02-21 08:06] LABS: MANUAL DIFFERENTIAL MANUAL DIFFERENTIAL (MANUAL DIFF)
[2025-02-21 08:31] LABS: Specific Gravity, Urine >= 1.030 (1.005-1.030)
[2025-02-21 08:34] LABS: Squamous Epithelial Cell,Urine Occasional #/hpf (0-5)
[2025-02-21 09:36] LABS: Eosinophils % 2 % (0-3); Lymphocytes % 55 % (10-50); Monocytes % 4 % (2-9); Neutrophils % 39 % (42-76); Platelet Estimate Normal; RBC Morphology Normal; Total Cells Counted 100
[2025-02-21 11:54] LABS: Alanine Aminotransferase 11 U/L (12-78); Albumin Level 4.6 g/dl (3.5-5.0); Albumin/Globulin Ratio 1.4 (1.1-1.8); Alkaline Phosphatase 40 U/L (38-126); Anion Gap 14.1 mEq/L (5-15); Aspartate Amino Transferase 22 U/L (14-36); Blood Urea Nitrogen 12 mg/dl (7-17); Calcium 8.8 mg/dl (8.4-10.2); Carbon Dioxide 26 mmol/L (22.0-30.0); Chloride 103 mmol/L (98-107); Estimated Glomerular Filt Rate 103 ml/min (>60); GFR (African American) 124 ML/MIN (>60); Globulin 3.2 g/dL (1.3-3.2); Glucose 89 mg/dl (74-100); Potassium 4.1 mmoL/L (3.5-5.1); Sodium 139 mmol/L (136-145); Total Protein,Serum 7.8 g/dl (6.3-8.2)
[2025-02-21 13:35] LABS: Ferritin 26.5 ng/ml (6.24-137)
[2025-02-22 15:17] LABS: Cortisol,AM 6.9 ug/dL (6.2-19.4)
[2025-02-25 15:09] LABS: Renin Activity, Plasma 1.261 ng/mL/hr (0.167-5.380)
[2025-03-01 12:12] LABS: Dopamine, Plasma < 10.0 pg/mL (0.0-36.7); Epinephrine, Plasma 18.1 pg/mL (0.0-55.4); Norepinephrine, Plasma 352 pg/mL (115-524)
== END 2025-02-21 23:59 | disposition home or self-care (01) ==
LOC: LAB 07:36
PROVIDERS: PCP Nurse Practitioner Family; Visit Provider Nurse Practitioner Family
DX: D50.9 Iron deficiency anemia, unspecified (principal); R10.9 Unspecified abdominal pain; G90.A Postural orthostatic tachycardia syndrome [POTS]
CPT/HCPCS: 36415; 80053; 81001; 82024; 82088; 82384; 82533; 82728; 84244; 85007; 85025; 85027

== ENCOUNTER 2025-02-22 13:32 | Outpatient (CLI) | payer BC, SELFPAY ==
--- NOTE | 2025-02-22 13:45 | US_ITS ---
FINAL REPORT CLINICAL HISTORY: .rt flank pain // had hydro in rt kidney w/ previous / had nephrostomy tube w COMPARISON: None FINDINGS: RENAL ULTRASOUND Ultrasound images of the kidneys were obtained. Limited images of the liver parenchyma demonstrates normal echogenicity. The right kidney measures 10.1 cm in length. The left kidney measures 10.4 cm in length. There is no hydronephrosis. No evidence of renal mass. There is a linear hyperechoic focus in the upper pole of the left kidney which may represent fibrous septation. IMPRESSION: No evidence of obstruction or significant atrophy. Reviewed, Interpreted and Dictated by Little Koch MD Transcribed by Meghann Mays Authenticated and [facility]
== END 2025-02-22 23:59 | disposition home or self-care (01) ==
LOC: RAD 13:33
PROVIDERS: PCP Nurse Practitioner Family; Visit Provider Nurse Practitioner Family
DX: R10.9 Unspecified abdominal pain (principal); N13.30 Unspecified hydronephrosis
CPT/HCPCS: 76770

== ENCOUNTER 2025-03-20 13:39 | Outpatient (CLI) | payer BC, SELFPAY ==
[2025-03-20 13:59] LABS: Basophils % 0.6 % (0.1-2.0); Eosinophils # 0.2 Kmm3 (0.0-0.4); Eosinophils % 4.5 % (0.1-12.0); Hematocrit 32.8 % (37.0-47.0); Hemoglobin 11.5 g/dL (12.2-16.2); Immature Granulocytes # 0 10^3uL; Immature Granulocytes % 0 %; Lymphocytes # 2.1 K/mm3 (0.7-4.5); Lymphocytes % 40.9 % (10-50); Mean Corpuscular HGB Conc 35.1 g/dL (31.8-35.4); Mean Corpuscular Hemoglobin 29.3 pg (27.0-31.2); Mean Corpuscular Volume 83.7 fl (81-99); Mean Platelet Volume 10.2 fl (7.4-10.4); Monocytes # 0.4 K/mm3 (0.1-1.0); Monocytes % 8.3 % (1.7-9.3); Neutrophils # 2.3 K/mm3 (1.8-7.8); Neutrophils % 45.7 % (37.0-80.0); Nucleated Red Blood Cells # 0 10^3/uL; Nucleated Red Blood Cells % 0 %; Platelet Count 201 K/mm3 (142-424); Red Blood Count 3.92 M/mm3 (4.20-5.40); Red Cell Distribution Width 13.3 % (11.5-17.5); Red Cell Distribution Width-SD 40.2 fL; White Blood Count 5.1 K/mm3 (4.8-10.8)
[2025-03-20 14:31] LABS: Alanine Aminotransferase 11 U/L (12-78); Albumin Level 4.6 g/dl (3.5-5.0); Alkaline Phosphatase 34 U/L (38-126); Anion Gap 7.2 mEq/L (5-15); Aspartate Amino Transferase 20 U/L (14-36); Bilirubin,Direct 0.1 mg/dl (0.0-0.4); Bilirubin,Total 1.1 mg/dl (0.2-1.3); Blood Urea Nitrogen 8 mg/dl (7-17); Calcium 9.6 mg/dl (8.4-10.2); Carbon Dioxide 25 mmol/L (22.0-30.0); Chloride 109 mmol/L (98-107); Chol/HDL Ratio 2.3 (1-3.5); Cholesterol 144 mg/dl (140-200); Estimated Glomerular Filt Rate 123 ml/min (>60); GFR (African American) 149 ML/MIN (>60); Glucose 87 mg/dl (74-100); HDL Cholesterol 62 mg/dl (40-60); Potassium 4.2 mmoL/L (3.5-5.1); Sodium 137 mmol/L (136-145); Total Protein,Serum 6.9 g/dl (6.3-8.2); Triglycerides 122 mg/dl (30-150); VLDL Cholesterol 24 mg/dL (0-40)
[2025-03-20 14:42] LABS: Direct LDL Cholesterol 49.66 mg/dL (100-129)
[2025-03-20 15:45] LABS: 25-OH Vitamin D, Total 28.7 ng/mL (30-100)
[2025-03-20 15:46] LABS: Free T4 (Free Thyroxine) 0.95 ng/dl (0.78-2.19)
[2025-03-20 16:00] LABS: Thyroid Stimulating Hormone 1.19 uIU/mL (0.465-4.68)
[2025-03-20 19:41] LABS: Folate 8.78 ng/mL
[2025-03-20 20:25] LABS: Iron 124 ug/dL (37-170)
[2025-03-20 20:36] LABS: Total Iron Binding Capacity 341 ug/dL (265-497)
[2025-03-21 00:27] LABS: Vitamin B12 209 pg/mL (239-931)
== END 2025-03-20 23:59 | disposition home or self-care (01) ==
LOC: LAB 13:39
PROVIDERS: PCP Nurse Practitioner Family; Visit Provider Internal Medicine
DX: I47.11 Inappropriate sinus tachycardia, so stated (principal); G90.A Postural orthostatic tachycardia syndrome [POTS]; R42 Dizziness and giddiness; R06.09 Other forms of dyspnea
CPT/HCPCS: 36415; 80048; 80061; 80076; 82306; 82607; 82746; 83540; 83550; 83735; 84439; 84443; 85025

== ENCOUNTER 2025-05-28 12:16 | Outpatient (CLI) | payer BC, SELFPAY ==
[2025-05-28 16:38] LABS: Hematocrit 35.5 % (37.0-47.0); Hemoglobin 11.6 g/dL (12.2-16.2); Immature Granulocytes % 0.2 %; Mean Corpuscular HGB Conc 32.7 g/dL (31.8-35.4); Mean Corpuscular Hemoglobin 28.2 pg (27.0-31.2); Mean Corpuscular Volume 86.2 fl (81-99); Nucleated Red Blood Cells % 0 %; Platelet Count 210 K/mm3 (142-424); Red Blood Count 4.12 M/mm3 (4.20-5.40); Red Cell Distribution Width-SD 40.1 fL; White Blood Count 4.5 K/mm3 (4.8-10.8)
[2025-05-28 17:53] LABS: Vitamin B12 420 pg/mL (239-931)
[2025-05-28 18:26] LABS: Ferritin 36.3 ng/ml (6.24-137)
--- OUTSIDE RECORDS SUMMARY | 2025-05-29 12:16 | XMS_ITS | Data Portability ---
Author Organization [employer] [place] - MSE Address [address] [place] [address] Care Team Providers Care Information Technology Program Manager Name Role Phone NATALIA GERARD Primary Care Provider [phone] Assessment Encounter Date Assessment Date Assessment LastModified by Organization Details LastModified Time 05/13/2023 05/13/2023 Patient is 37 weeks . Discussed plan. Not available 05/13/2023 09:40:03 03/29/2025 03/29/2025 Annual gynecological exam performed. Patient will come back in a year unless there are new symptoms. [email or web address] Not available 03/26/2025 09:06:11 Plan of Treatment Reminders Order Date Submit Date Provider Last Modified By Organization Details Last Modified Time Details Appointments None recorded. Lab test, urine 2022 023 [facility], [address] [place], [address], 3 11:37:59 pap, LB 2022 023 [facility], [address], [place], [address], 3 21:05:54 urinalysis , dipstick 2022 023 [facility], [address] [place], [address], 13:36:17 Referral None recorded. Procedures induction of [facility] (PROC) 2022 [facility]23 [email or web address] [address] [place] [address] [place], [address], 08:35:20 Surgeries None recorded. Imaging None recorded. Medication Orders None recorded. Patient TargetsNo targets recorded. Patient Instructions Encounter Date Encounter Id Patient Instructions Last Modified By Organization Details Last Modified Time 05/13/2023 [id number] labor induction: care instructions Not available 05/13/2023 09:42:21 early warning signs Not available 05/13/2023 09:42:21 exercise during : care instructions Not available 05/13/2023 09:42:21 family involvement in Not available 05/13/2023 09:42:21 nutrition during : care instructions Not available 05/13/2023 09:42:21 07/01/2023 [id number] intrauterine device (IUD) insertion: care instructions Not available 07/01/2023 11:37:59 Reason for Referral None Reported. Results Created Date Observation Date Name Description Value Unit Range Abnormal Flag Note LastModifiedBy Organization Detail LastModifiedTime 04/16/2004/16/2023 urina lysis , dipst ick Leukocytes Small Not Available [address], [address], 04/16/2023 08:10:40 04/16/20 23 04/16/2023 urina lysis , dipst ick Nitrite negati ve Not Available [address], [address], 04/16/2023 08:10:40 04/16/20 23 04/16/2023 urina lysis , dipst ick Urobilinogen .2 Not Available [facility] [address] [place], [address], 04/16/2023 08:10:40 04/16/20 23 04/16/2023 urina lysis , dipst ick Protein Negati ve Not Available [address], [address], 04/16/2023 08:10:40 04/16/20 23 04/16/2023 urina lysis , dipst ick pH 7.0 Not Available [address], [address], 04/16/2023 08:10:40 04/16/20 23 04/16/2023 urina lysis , dipst ick Blood Non-He molyze d: Trace Not Available [address], [address], 04/16/2023 08:10:40 04/16/20 23 04/16/2023 urina lysis , dipst ick Specific Fluker 1.015 Not Available [address], [address], 04/16/2023 08:10:40 04/16/20 23 04/16/2023 urina lysis , dipst ick Ketone Negati ve Not Available [address], [address], 04/16/2023 08:10:40 04/16/20 23 04/16/2023 urina lysis , dipst ick Bilirubin Negati ve Not Available [address], [address], 04/16/2023 08:10:40 04/16/20 23 04/16/2023 urina lysis , dipst ick Glucose Negati ve Not Available [facility] [address], [place], [address], 04/16/2023 08:10:40 04/28/2004/28/2023 urina lysis , dipst ick Leukocytes Small Not Available [facility] [address] [place], [address], 04/28/2023 10:48:06 04/28/2004/28/2023 urina lysis , dipst ick Nitrite negati ve Not Available [place] [address] [place], [address], 04/28/2023 10:48:06 04/28/2004/28/2023 urina lysis , dipst ick Urobilinogen .2 Not Available [address] [place], [address], 04/28/2023 10:48:06 04/28/2004/28/2023 urina lysis , dipst ick Protein Negati ve Not Available [place] [address] [place], [address], 04/28/2023 10:48:06 04/28/2004/28/2023 urina lysis , dipst ick pH 7.5 Not Available [place] [address] [place], [address], 04/28/2023 10:48:06 04/28/2004/28/2023 urina lysis , dipst ick Blood Negati ve Not Available [place] [address] [place], [address], 04/28/2023 10:48:06 04/28/20 23 04/28/2023 urina lysis , dipst ick Specific Fluker 1.020 Not Available [address], [address], 04/28/2023 10:48:06 04/28/20 23 04/28/2023 urina lysis , dipst ick Ketone Negati ve Not Available [address], [address], 04/28/2023 10:48:06 04/28/20 23 04/28/2023 urina lysis , dipst ick Bilirubin Negati ve Not Available [address], [address], 04/28/2023 10:48:06 04/28/20 23 04/28/2023 urina lysis , dipst ick Glucose Negati ve Not Available [address], [address], 04/28/2023 10:48:06 04/28/20 23 04/28/2023 urina lysis , dipst ick Appearance Clear Not Available [address], [address], 04/28/2023 10:48:06 04/28/2004/28/2023 urina lysis , dipst ick Color Yellow Not Available [address], [address], 04/28/2023 10:48:06 05/04/2005/04/2023 urina lysis , dipst ick Leukocytes Trace Not Available [address], [address], 05/04/2023 11:12:45 05/04/2005/04/2023 urina lysis , dipst ick Nitrite negati ve Not Available [place] [address] [place], [address], 05/04/2023 11:12:45 05/04/20 23 05/04/2023 urina lysis , dipst ick Urobilinogen .2 Not Available [address] [place], [address], 05/04/2023 11:12:45 05/04/20 23 05/04/2023 urina lysis , dipst ick Protein Negati ve Not Available [address], [address], 05/04/2023 11:12:45 05/04/20 23 05/04/2023 urina lysis , dipst ick pH 7.0 Not Available [address], [address], 05/04/2023 11:12:45 05/04/20 23 05/04/2023 urina lysis , dipst ick Blood Negati ve Not Available [address], [address], 05/04/2023 11:12:45 05/04/20 23 05/04/2023 urina lysis , dipst ick Specific Fluker 1.005 Not Available [place] [address] [place], [address], 05/04/2023 11:12:45 05/04/20 23 05/04/2023 urina lysis , dipst ick Ketone Negati ve Not Available [address], [address], 05/04/2023 11:12:45 05/04/20 23 05/04/2023 urina lysis , dipst ick Bilirubin Negati ve Not Available [address], [address], 05/04/2023 11:12:45 05/04/20 23 05/04/2023 urina lysis , dipst ick Glucose Negati ve Not Available [address] [place], [address], 05/04/2023 11:12:45 05/04/20 23 05/04/2023 urina lysis , dipst ick Appearance Clear Not Available [address], [address], 05/04/2023 11:12:45 05/04/20 23 05/04/2023 urina lysis , dipst ick Color Yellow Not Available [address], [address], 05/04/2023 11:12:45 05/07/20 23 05/08/2023 CBC (INCL UDES DIFF/ PLT) white blood cell count 7.7 thous and/u L 3.8-10 .8 normal Not Available [email or web address] [address] [place], [address], 05/08/2023 04:59:44 05/07/20 23 05/08/2023 CBC (INCL UDES DIFF/ PLT) red blood cell count 3.73 braden on/uL 3.80-5 .10 low Not Available [facility] [address] [place], [address], 05/08/2023 04:59:44 05/07/20 23 05/08/2023 CBC (INCL UDES DIFF/ PLT) hemoglobin 10.6 g/dL 11.7-1 5.5 low Not Available [facility] [address] [facility] [place], [address], 05/08/2023 04:59:44 05/07/2005/08/2023 CBC (INCL UDES DIFF/ PLT) hematocrit 32.4 % 35.0-4 5.0 low Not Available [facility] [address] [facility] [place], [address], 05/08/2023 04:59:44 05/07/2005/08/2023 CBC (INCL UDES DIFF/ PLT) MCV 86.9 fL 80.0-1 00.0 normal Not Available [facility] [address] [facility] [place], [address], 05/08/2023 04:59:44 05/07/2005/08/2023 CBC (INCL UDES DIFF/ PLT) MCH 28.4 pg 27.0-3 3.0 normal Not Available [facility] [address] [facility] [place], [address], 05/08/2023 04:59:44 05/07/2005/08/2023 CBC (INCL UDES DIFF/ PLT) MCHC 32.7 g/dL 32.0-3 6.0 normal Not Available [facility] [address] [facility] [place], [address], 05/08/2023 04:59:44 05/07/2005/08/2023 CBC (INCL UDES DIFF/ PLT) RDW 11.9 % 11.0-1 5.0 normal Not Available [facility] [address] [facility] [place], [address], 05/08/2023 04:59:44 05/07/20 23 05/08/2023 CBC (INCL UDES DIFF/ PLT) platelet count 202 thous and/u L 140-40 0 normal Not Available [facility] [address], [place], [address], 05/08/2023 04:59:44 05/07/2005/08/2023 CBC (INCL UDES DIFF/ PLT) MPV 10.4 fL 7.5-12 .5 normal Not Available [facility] [address], [place], [address], 05/08/2023 04:59:44 05/07/20 23 05/08/2023 CBC (INCL UDES DIFF/ PLT) absolute neutrophils 5344 cells /uL 1500-7 800 normal Not Available [facility] [address], [place], [address], 05/08/2023 04:59:44 05/07/20 23 05/08/2023 CBC (INCL UDES DIFF/ PLT) absolute lymphocytes 1648 cells /uL 850-39 00 normal Not Available [facility] [address], [place], [address], 05/08/2023 04:59:44 05/07/2005/08/2023 CBC (INCL UDES DIFF/ PLT) absolute monocytes 578 cells /uL 200-95 0 normal Not Available [facility] [address], [place], [address], 05/08/2023 04:59:44 05/07/20 23 05/08/2023 CBC (INCL UDES DIFF/ PLT) absolute eosinophils 100 cells /uL 15-500 normal Not Available [facility] [address], [place], [address], 05/08/2023 04:59:44 05/07/20 23 05/08/2023 CBC (INCL UDES DIFF/ PLT) absolute basophils 31 cells /uL 0-200 normal Not Available [facility] [address], [place], [address], 05/08/2023 04:59:44 05/07/20 23 05/08/2023 CBC (INCL UDES DIFF/ PLT) neutrophils 69.4 % normal Not Available [facility] [address] [facility] [place], [address], 05/08/2023 04:59:44 05/07/20 23 05/08/2023 CBC (INCL UDES DIFF/ PLT) lymphocytes 21.4 % normal Not Available [facility] [address] [facility] [place], [address], 05/08/2023 04:59:44 05/07/20 23 05/08/2023 CBC (INCL UDES DIFF/ PLT) monocytes 7.5 % normal Not Available [facility] [address] [place], [address], 05/08/2023 04:59:44 05/07/20 23 05/08/2023 CBC (INCL UDES DIFF/ PLT) eosinophils 1.3 % normal Not Available [facility] [address] [place], [address], 05/08/2023 04:59:44 05/07/20 23 05/08/2023 CBC (INCL UDES DIFF/ PLT) basophils 0.4 % normal Not Available [facility] [address] [place], [address], 05/08/2023 04:59:44 05/07/20 23 05/08/2023 RPR (KIERSTEN TOR) W/REF L TITER RPR (monitor) w/refl titer NON-RE ACTIVE non-re active normal Not Available [facility] [address] [facility] [place], [address], 05/08/2023 13:03:46 05/07/20 23 05/10/2023 STREP TOCOC CUS, GROUP B CULTU RE streptococcu s, group B culture SEE NOTE STREP TOCOC CUS, GROUP B CULTU RE Micro Numbe r: [id number] Test Statu s: Final Speci men Sourc e: Vagin al/an orect al Speci men Quali ty: Adequ ate Resul t: No group B Strep tococ cus isola edinson Note per CDC guide lines optim al recov [place] is achie kiera by swabb ing both the lower vagin a and rectu m (thro ugh the anal sphin cter) . Not Available [facility] [address] [facility] [place], [address], 05/10/2023 12:34:03 05/13/20 23 05/14/2023 SURES WAB(R ) ADVAN REYNA VAGIN ITIS PLUS, TMA sureswab(R) adv bacterial vaginosis (bv), tma POSITI VE negati ve abnormal Not Available [facility] [address] [place], [address], 05/14/2023 16:14:15 05/13/20 23 05/14/2023 SURES WAB(R ) ADVAN REYNA VAGIN ITIS PLUS, TMA kate species DETECT ED not detect ed abnormal Not Available [facility] [address] [facility], [place], [address], 05/14/2023 16:14:15 05/13/20 23 05/14/2023 SURES WAB(R ) ADVAN REYNA VAGIN ITIS PLUS, TMA kate glabrata NOT DETECT ED not detect ed normal Renetta da speci es C. albic ans, C. tropi calis , C. parap yadiel is, and/o r C. dubli niens is can be detec edinson, but not diffe renti ated, in the Renetta da spp. resul t. Not Available [facility] [address] [facility], [place], [address], 05/14/2023 16:14:15 05/13/20 23 05/14/2023 SURES WAB(R ) ADVAN REYNA VAGIN ITIS PLUS, TMA trichomonas vaginalis (TV), tma NOT DETECT ED not detect ed normal Not Available [facility] [address] [place], [address], 05/14/2023 16:14:15 05/13/20 23 05/14/2023 SURES WAB(R ) ADVAN REYNA VAGIN ITIS PLUS, TMA chlamydia trachomatis RNA, tma, urogenital NOT DETECT ED not detect ed normal Not Available [facility] [address] [facility] [place], [address], 05/14/2023 16:14:15 05/13/20 23 05/14/2023 SURES WAB(R ) ADVAN REYNA VAGIN ITIS PLUS, TMA neisseria gonorrhoeae RNA, tma, urogenital NOT DETECT ED not detect ed normal For addit ional infor ric amado e refer to https ://ed ati on.[employer]/f aq/FA Q154 (This link is being provi ded for infor jayant dey/ reji garvey purpo ses only. ) Not Available [facility] [address] [facility], [place], [address], 05/14/2023 16:14:15 05/13/20 23 05/13/2023 urina lysis , dipst ick Leukocytes Small Not Available [address], [address], 05/13/2023 09:40:59 05/13/20 23 05/13/2023 urina lysis , dipst ick Nitrite negati ve Not Available [address], [address], 05/13/2023 09:40:59 05/13/20 23 05/13/2023 urina lysis , dipst ick Urobilinogen .2 Not Available [address], [place], [address], 05/13/2023 09:40:59 05/13/2005/13/2023 urina lysis , dipst ick Protein Negati ve Not Available [address], [address], 05/13/2023 09:40:59 05/13/20 23 05/13/2023 urina lysis , dipst ick pH 7.0 Not Available [address], [address], 05/13/2023 09:40:59 05/13/2005/13/2023 urina lysis , dipst ick Blood Negati ve Not Available [address], [address], 05/13/2023 09:40:59 05/13/20 23 05/13/2023 urina lysis , dipst ick Specific Fluker 1.015 Not Available [address], [address], 05/13/2023 09:40:59 05/13/20 23 05/13/2023 urina lysis , dipst ick Ketone Negati ve Not Available [address], [address], 05/13/2023 09:40:59 05/13/20 23 05/13/2023 urina lysis , dipst ick Bilirubin Negati ve Not Available [address], [address], 05/13/2023 09:40:59 05/13/20 23 05/13/2023 urina lysis , dipst ick Glucose Negati ve Not Available [facility] [address] [place], [address], 05/13/2023 09:40:59 05/13/2005/13/2023 urina lysis , dipst ick Appearance Clear Not Available [facility] [address] [place], [address], 05/13/2023 09:40:59 05/13/2005/13/2023 urina lysis , dipst ick Color Yellow Not Available [facility] [address] [place], [address], 05/13/2023 09:40:59 05/20/20 23 05/20/2023 CBC W/ AUTO DIFF WBC 9.62 K/uL 4.5-11 .5 Not Available [facility] [address] [place] [address] [place], [address], 05/20/2023 20:44:16 05/20/20 23 05/20/2023 CBC W/ AUTO DIFF RBC 3.84 M/uL 4.0-5. 4 low Not Available [facility] [address] [place] [address] [place], [address], 05/20/2023 20:44:16 05/20/20 23 05/20/2023 CBC W/ AUTO DIFF HGB 11.0 g/dL 12.0-1 5.0 low Not Available [facility] [address] [place] [address] [place], [address], 05/20/2023 20:44:16 05/20/20 23 05/20/2023 CBC W/ AUTO DIFF HCT 33.0 % 35-49 low Not Available [facility] [address] [place] [address] [place], [address], 05/20/2023 20:44:16 05/20/20 23 05/20/2023 CBC W/ AUTO DIFF MCV 85.9 fL 80.0-1 00.0 Not Available [facility] [address] [facility] [place], [address], 05/20/2023 20:44:16 05/20/20 23 05/20/2023 CBC W/ AUTO DIFF MCH 28.6 pg 26.0-3 2.0 Not Available [facility] [address] [place] [address] [place], [address], 05/20/2023 20:44:16 05/20/20 23 05/20/2023 CBC W/ AUTO DIFF MCHC 33.3 g/dL 32.0-3 6.0 Not Available [facility] [address] [place] [address] [place], [address], 05/20/2023 20:44:16 05/20/20 23 05/20/2023 CBC W/ AUTO DIFF RDW 13.5 % 11.5-1 4.5 Not Available [facility]) [address] [place] [address] [place], [address], 05/20/2023 20:44:16 05/20/20 23 05/20/2023 CBC W/ AUTO DIFF platelet count 172 K/uL 142-42 4 Not Available [facility] [address] [place] [address] [place], [address], 05/20/2023 20:44:16 05/20/20 23 05/20/2023 CBC W/ AUTO DIFF MPV 11.0 fL 6.8-10 .2 high Not Available [facility] [address] [place] [address] [place], [address], 05/20/2023 20:44:16 05/20/20 23 05/20/2023 CBC W/ AUTO DIFF neutrophil % 65.6 % 50-70 Not Available [facility] [address] [place] [address] [place], [address], 05/20/2023 20:44:16 05/20/20 23 05/20/2023 CBC W/ AUTO DIFF lymphocyte % 24.2 % 18.0-4 2.0 Not Available [facility] [address] [place] [address] [place], [address], 05/20/2023 20:44:16 05/20/20 23 05/20/2023 CBC W/ AUTO DIFF monocyte % 8.0 % 2.0-11 .0 Not Available [facility]) [address] [place] [address] [place], [address], 05/20/2023 20:44:16 05/20/20 23 05/20/2023 CBC W/ AUTO DIFF eosinophil % 1.5 % 1.0-3. 0 Not Available [facility]) [address] [place] [address] [place], [address], 05/20/2023 20:44:16 05/20/20 23 05/20/2023 CBC W/ AUTO DIFF basophil % 0.3 % 0.0-2. 0 Not Available [facility]) [address] [place] [address] [place], [address], 05/20/2023 20:44:16 05/20/20 23 05/20/2023 CBC W/ AUTO DIFF immature granulocytes % 0.4 % 0.0-0. 8 Not Available [facility] [address] [place] [address] [place], [address], 05/20/2023 20:44:16 05/20/20 23 05/20/2023 CBC W/ AUTO DIFF nucleated red blood cells % 0.0 % Not Available [facility]) [address] [place] [address] [place], [address], 05/20/2023 20:44:16 05/20/20 23 05/20/2023 CBC W/ AUTO DIFF neutrophil # 6.31 K/uL Not Available [facility] [address] [place] [address] [place], [address], 05/20/2023 20:44:16 05/20/20 23 05/20/2023 CBC W/ AUTO DIFF lymphocyte # 2.33 K/uL Not Available [facility] [address] [place] [address] [place], [address], 05/20/2023 20:44:16 05/20/20 23 05/20/2023 CBC W/ AUTO DIFF monocyte # 0.77 K/uL Not Available [facility]) [address] [place] [address] [place], [address], 05/20/2023 20:44:16 05/20/20 23 05/20/2023 CBC W/ AUTO DIFF eosinophil # 0.14 K/uL Not Available [facility] [address] [place] [address] [place], [address], 05/20/2023 20:44:16 05/20/20 23 05/20/2023 CBC W/ AUTO DIFF basophil # 0.03 K/uL Not Available [facility]) [address] [place] [address] [place], [address], 05/20/2023 20:44:16 05/20/20 23 05/20/2023 CBC W/ AUTO DIFF immature gramulocytes # 0.04 K/uL Not Available [facility]) [address] [place] [address] [place], [address], 05/20/2023 20:44:16 05/20/20 23 05/20/2023 CBC W/ AUTO DIFF nucleated red blood cells # 0.00 k/uL Not Available [facility] [address] [place] [address] [place], [address], 05/20/2023 20:44:16 05/20/20 23 05/20/2023 CBC W/ AUTO DIFF manual differential NO Not Available [facility] [address] [place] [address] [place], [address], 05/20/2023 20:44:16 05/20/20 23 05/20/2023 CBC W/ AUTO DIFF note Unles s other campbell noted testi ng [facility] [address] [place] [address] Wesly duarte MD Not Available [facility] [address] [place] [address] [place], [address], 05/20/2023 20:44:16 05/20/20 23 05/20/2023 BASIC METAB OLIC PANEL sodium 138 mmol/ L 137-14 7 Not Available [facility] [address] [place] [address] [place], [address], 05/20/2023 20:59:54 05/20/20 23 05/20/2023 BASIC METAB OLIC PANEL potassium 4.0 mmol/ L 3.5-5. 1 Not Available [facility]) [address] [place] [address] [place], [address], 05/20/2023 20:59:54 05/20/20 23 05/20/2023 BASIC METAB OLIC PANEL chloride 105 mmol/ L 98-110 Not Available [facility] [address] [place] [address] [place], [address], 05/20/2023 20:59:54 05/20/20 23 05/20/2023 BASIC METAB OLIC PANEL carbon dioxide 21 mmol/ L 21-30 Not Available [facility] [address] [place] [address] [place], [address], 05/20/2023 20:59:54 05/20/20 23 05/20/2023 BASIC METAB OLIC PANEL anion gap 12 mmol/ L 6-14 Not Available [facility] [address] [facility] [place], [address], 05/20/2023 20:59:54 05/20/20 23 05/20/2023 BASIC METAB OLIC PANEL glucose 79 mg/dL 70-115 Not Available [facility] [address] [place] [address] [place], [address], 05/20/2023 20:59:54 05/20/20 23 05/20/2023 BASIC METAB OLIC PANEL BUN 7 mg/dL 7-17 Not Available [facility] [address] [place] [address] [place], [address], 05/20/2023 20:59:54 05/20/20 23 05/20/2023 BASIC METAB OLIC PANEL creatinine 0.5 mg/dL 0.5-1. 5 Not Available [facility] [address] [place] [address] [place], [address], 05/20/2023 20:59:54 05/20/20 23 05/20/2023 BASIC METAB OLIC PANEL BUN/creatini ne ratio 14 ratio 10-20 Not Available [facility] [address] [place] [address] [place], [address], 05/20/2023 20:59:54 05/20/20 23 05/20/2023 BASIC METAB OLIC PANEL glom filtration rate 164 mL/mi n >60- Not Available [facility] [address] [place] [address] [place], [address], 05/20/2023 20:59:54 05/20/20 23 05/20/2023 BASIC METAB OLIC PANEL osmolality (calculated) 284 mosmo l/kg 275-30 1 OSMOL ALITY IS A CALCU LATIO N UTILI ZING THE SERUM /PLAS MA SODIU M, GLUCO SE AND UREA NITRO GEN (BUN) LEVEL S. FOR THE MOST ACCUR ATE RESUL T A MEASU RED SERUM OSMOL ALITY IS SHERRY DICKSON. Not Available [facility] (Pre-Op Clinic) [address] [place] [address] [place], [id number], 05/20/2023 20:59:54 05/20/20 23 05/20/2023 BASIC METAB OLIC PANEL calcium 9.0 mg/dL 8.5-10 .8 Not Available [facility] (Pre-Op Clinic) [address] [place] [address] [place], [id number], 05/20/2023 20:59:54 05/20/20 23 05/20/2023 BASIC METAB OLIC PANEL note Unles s other campbell noted testi ng perfo [facility] at[facility] [address] [place] [address] Wesly duarte MD Not Available [facility] (Pre-Op Clinic) [address] [place] [address] [place], [id number], 05/20/2023 20:59:54 05/20/20 23 05/20/2023 UDS + OXYCO DONE + SUBOX ONE amphetamine NEGATI VE negati ve Not Available [facility] ([facility]) [address] [place] [address] [place], [address], 05/20/2023 21:33:50 05/20/20 23 05/20/2023 UDS + OXYCO DONE + SUBOX ONE barbiturates NEGATI VE negati ve Not Available [facility] ([facility]) [address] [place] [address] [place], [address], 05/20/2023 21:33:50 05/20/20 23 05/20/2023 UDS + OXYCO DONE + SUBOX ONE benzodiazepi ne NEGATI VE negati ve Not Available [facility] ([facility]) [address] [place] [address] [place], [address], 05/20/2023 21:33:50 05/20/20 23 05/20/2023 UDS + OXYCO DONE + SUBOX ONE THC (cannabinoid ) NEGATI VE negati ve Not Available [facility] ([facility]) [address] [facility] [place], [address], 05/20/2023 21:33:50 05/20/20 23 05/20/2023 UDS + OXYCO DONE + SUBOX ONE methadone NEGATI VE negati ve Not Available [facility] ([facility]) [address] [facility] [place], [address], 05/20/2023 21:33:50 05/20/20 23 05/20/2023 UDS + OXYCO DONE + SUBOX ONE opiate NEGATI VE negati ve Not Available [facility] ([facility]) [address] [facility] [place], [address], 05/20/2023 21:33:50 05/20/20 23 05/20/2023 UDS + OXYCO DONE + SUBOX ONE pcp (phencyclidi ne) NEGATI VE negati ve Not Available [facility] ([facility]) [address] [facility] [place], [address], 05/20/2023 21:33:50 05/20/20 23 05/20/2023 UDS + OXYCO DONE + SUBOX ONE cocaine NEGATI VE negati ve Not Available [facility] ([facility]) [address] [facility] [place], [address], 05/20/2023 21:33:50 05/20/20 23 05/20/2023 UDS + OXYCO DONE + SUBOX ONE oxycodone NEGATI VE negati ve Not Available [facility] ([facility]) [address] [facility] [place], [address], 05/20/2023 21:33:50 05/20/20 23 05/20/2023 UDS + OXYCO DONE + SUBOX ONE oxycodone internal control PASS PASS Not Available [facility] ([facility]Op [facility]) [address] [facility] [place], [address], 05/20/2023 21:33:50 05/20/20 23 05/20/2023 UDS + OXYCO DONE + SUBOX ONE suboxone (buprenorphi ne) NEGATI VE negati ve Not Available [facility] ([facility]Op [facility]) [address] [place] [address] [place], [address], 05/20/2023 21:33:50 05/20/20 23 05/20/2023 UDS + OXYCO DONE + SUBOX ONE suboxone internal control PASS PASS Not Available [facility] ([facility]) [address] [place] [address] [place], [address], 05/20/2023 21:33:50 05/20/20 23 05/20/2023 UDS + OXYCO DONE + SUBOX ONE note Unles s other campbell noted testi ng [facility] [address] [place] [address] Wesly duarte MD Not Available [facility] ([facility]) [address] [place] [address] [place], [address], 05/20/2023 21:33:50 05/20/20 23 05/20/2023 TYPE/ SCREE N status information Comple edinson Not Available [facility] ([facility]Op [facility]) [address] [place] [address] [place], [address], 05/20/2023 22:16:17 05/20/20 23 05/20/2023 TYPE/ SCREE N ABO O NEGATI VE Not Available [facility] ([facility]) [address] [place] [address] [place], [address], 05/20/2023 22:16:17 05/20/20 23 05/20/2023 TYPE/ SCREE N antibody screen POSITI VE Presu mptiv e passi ve anti- D due to Rh Immun e Globu dejon admin is trati on on . The patie nt has a titer of <1 with a neg ative antib sveta scree n by tube metho d Not Available [facility] ([facility]) [address] [facility] [place], [address], 05/20/2023 22:16:17 05/20/20 23 05/20/2023 TYPE/ SCREE N history check Comple edinson Not Available [facility] ([facility]) [address] [place] [address] [place], [address], 05/20/2023 22:16:17 05/20/20 23 05/20/2023 TYPE/ SCREE N note Unles s other campbell noted testi ng perfo [facility]med at: [facility] [address] [facility] [place] [address] Wesly duarte MD Not Available [facility] ([facility]) [address] [place] [address] [place], [address], 05/20/2023 22:16:17 05/22/20 23 05/22/2023 CBC W/ AUTO DIFF WBC 10.32 K/uL 4.5-11 .5 Not Available [facility] ([facility]) [address] [place] [address] [place], [address], 05/22/2023 05:44:56 05/22/20 23 05/22/2023 CBC W/ AUTO DIFF RBC 3.44 M/uL 4.0-5. 4 low Not Available [facility] ([facility]) [address] [place] [address] [place], [address], 05/22/2023 05:44:56 05/22/20 23 05/22/2023 CBC W/ AUTO DIFF HGB 9.8 g/dL 12.0-1 5.0 low Not Available [facility] ([facility]) [address] [place] [address] [place], [address], 05/22/2023 05:44:56 05/22/20 23 05/22/2023 CBC W/ AUTO DIFF HCT 30.6 % 35-49 low Not Available [facility] ([facility]) [address] [place] [address] [place], [address], 05/22/2023 05:44:56 05/22/2005/22/2023 CBC W/ AUTO DIFF MCV 89.0 fL 80.0-1 00.0 Not Available [facility] ([facility]) [address] [place] [address] [place], [address], 05/22/2023 05:44:56 05/22/2005/22/2023 CBC W/ AUTO DIFF MCH 28.5 pg 26.0-3 2.0 Not Available [facility] ([facility]) [address] [place] [address] [place], [address], 05/22/2023 05:44:56 05/22/2005/22/2023 CBC W/ AUTO DIFF MCHC 32.0 g/dL 32.0-3 6.0 Not Available [facility] ([facility]) [address] [place] [address] [place], [address], 05/22/2023 05:44:56 05/22/2005/22/2023 CBC W/ AUTO DIFF RDW 13.9 % 11.5-1 4.5 Not Available [facility] ([facility]) [address] [place] [address] [place], [address], 05/22/2023 05:44:56 05/22/2005/22/2023 CBC W/ AUTO DIFF platelet count 168 K/uL 142-42 4 Not Available [facility] ([facility]) [address] [place] [address] [place], [address], 05/22/2023 05:44:56 05/22/2005/22/2023 CBC W/ AUTO DIFF MPV 11.3 fL 6.8-10 .2 high Not Available [facility] ([facility]) [address] [place] [address] [place], [address], 05/22/2023 05:44:56 05/22/2005/22/2023 CBC W/ AUTO DIFF neutrophil % 64.5 % 50-70 Not Available [facility] ([facility]) [address] [place] [address] [place], [address], 05/22/2023 05:44:56 05/22/2005/22/2023 CBC W/ AUTO DIFF lymphocyte % 24.6 % 18.0-4 2.0 Not Available [facility]) [address] [place] [address] [place], [address], 05/22/2023 05:44:56 05/22/2005/22/2023 CBC W/ AUTO DIFF monocyte % 8.5 % 2.0-11 .0 Not Available [facility] ([facility]) [address] [place] [address] [place], [address], 05/22/2023 05:44:56 05/22/2005/22/2023 CBC W/ AUTO DIFF eosinophil % 1.4 % 1.0-3. 0 Not Available [facility] ([facility]) [address] [place] [address] [place], [address], 05/22/2023 05:44:56 05/22/2005/22/2023 CBC W/ AUTO DIFF basophil % 0.3 % 0.0-2. 0 Not Available [facility] ([facility]) [address] [place] [address] [place], [address], 05/22/2023 05:44:56 05/22/2005/22/2023 CBC W/ AUTO DIFF immature granulocytes % 0.7 % 0.0-0. 8 Not Available [facility] ([facility]) [address] [place] [address] [place], [address], 05/22/2023 05:44:56 05/22/2005/22/2023 CBC W/ AUTO DIFF nucleated red blood cells % 0.0 % Not Available [facility] ([facility]Op [facility]) [address] [place] [address] [place], [address], 05/22/2023 05:44:56 05/22/20 23 05/22/2023 CBC W/ AUTO DIFF neutrophil # 6.66 K/uL Not Available [facility] ([facility]) [address] [place] [address] [place], [address], 05/22/2023 05:44:56 05/22/20 23 05/22/2023 CBC W/ AUTO DIFF lymphocyte # 2.54 K/uL Not Available [facility] ([facility]) [address] [place] [address] [place], [address], 05/22/2023 05:44:56 05/22/20 23 05/22/2023 CBC W/ AUTO DIFF monocyte # 0.88 K/uL Not Available [facility] ([facility]) [address] [place] [address] [place], [address], 05/22/2023 05:44:56 05/22/20 23 05/22/2023 CBC W/ AUTO DIFF eosinophil # 0.14 K/uL Not Available [facility] ([facility]) [address] [place] [address] [place], [address], 05/22/2023 05:44:56 05/22/20 23 05/22/2023 CBC W/ AUTO DIFF basophil # 0.03 K/uL Not Available [facility] ([facility]) [address] [place] [address] [place], [address], 05/22/2023 05:44:56 05/22/20 23 05/22/2023 CBC W/ AUTO DIFF immature gramulocytes # 0.07 K/uL Not Available [facility] ([facility]) [address] [place] [address] [place], [address], 05/22/2023 05:44:56 05/22/20 23 05/22/2023 CBC W/ AUTO DIFF nucleated red blood cells # 0.00 k/uL Not Available [facility] ([facility]) [address] [place] [address] [place], [address], 05/22/2023 05:44:56 05/22/20 23 05/22/2023 CBC W/ AUTO DIFF manual differential NO Not Available [facility] ([facility]) [address] [place] [address] [place], [address], 05/22/2023 05:44:56 05/22/20 23 05/22/2023 CBC W/ AUTO DIFF note Unles s other campbell noted testi ng perfo rmed at: [facility] [address] [place] [address] Wesly duarte MD Not Available [facility] ([facility]) [address] [place] [address] [place], [address], 05/22/2023 05:44:56 05/22/20 23 05/22/2023 BASIC METAB OLIC PANEL sodium 140 mmol/ L 137-14 7 Not Available [facility] ([facility]) [address] [place] [address] [place], [address], 05/22/2023 05:57:29 05/22/20 23 05/22/2023 BASIC METAB OLIC PANEL potassium 4.3 mmol/ L 3.5-5. 1 Not Available [facility] ([facility]) [address] [place] [address] [place], [address], 05/22/2023 05:57:29 05/22/20 23 05/22/2023 BASIC METAB OLIC PANEL chloride 108 mmol/ L 98-110 Not Available [facility] ([facility]) [address] [place] [address] [place], [address], 05/22/2023 05:57:29 05/22/20 23 05/22/2023 BASIC METAB OLIC PANEL carbon dioxide 24 mmol/ L 21-30 Not Available [facility] ([facility]) [address] [place] [address] [place], [address], 05/22/2023 05:57:29 05/22/20 23 05/22/2023 BASIC METAB OLIC PANEL anion gap 8 mmol/ L 6-14 Not Available [facility] ([facility]) [address] [place] [address] [place], [address], 05/22/2023 05:57:29 05/22/20 23 05/22/2023 BASIC METAB OLIC PANEL glucose 79 mg/dL 70-115 Not Available [facility] ([facility]) [address] [place] [address] [place], [address], 05/22/2023 05:57:29 05/22/20 23 05/22/2023 BASIC METAB OLIC PANEL BUN 6 mg/dL 7-17 low Not Available [facility] ([facility]) [address] [place] [address] [place], [address], 05/22/2023 05:57:29 05/22/20 23 05/22/2023 BASIC METAB OLIC PANEL creatinine 0.5 mg/dL 0.5-1. 5 Not Available [facility] ([facility]) [address] [place] [address] [place], [address], 05/22/2023 05:57:29 05/22/20 23 05/22/2023 BASIC METAB OLIC PANEL BUN/creatini ne ratio 12 ratio 10-20 Not Available [facility] ([facility]) [address] [place] [address] [place], [address], 05/22/2023 05:57:29 05/22/20 23 05/22/2023 BASIC METAB OLIC PANEL glom filtration rate 164 mL/mi n >60- Not Available [facility] ([facility]) [address] [place] [address] [place], [address], 05/22/2023 05:57:29 05/22/20 23 05/22/2023 BASIC METAB OLIC PANEL osmolality (calculated) 288 mosmo l/kg 275-30 1 OSMOL ALITY IS A CALCU LATIO N UTILI ZING THE SERUM /PLAS MA SODIU M, GLUCO SE AND UREA NITRO GEN (BUN) LEVEL S. FOR THE MOST ACCUR ATE RESUL T A MEASU RED SERUM OSMOL ALITY IS SHERRY DICKSON. Not Available [facility] ([facility]) [address] [place] [address] [place], [address], 05/22/2023 05:57:29 05/22/20 23 05/22/2023 BASIC METAB OLIC PANEL calcium 8.8 mg/dL 8.5-10 .8 Not Available [facility]) [address] [place] [address] [place], [address], 05/22/2023 05:57:29 05/22/20 23 05/22/2023 BASIC METAB OLIC PANEL note Unles s other campbell noted testi ng perfo rmed at: [facility] [address] [place] [address] Wesly duarte MD Not Available [facility] ([facility]) [address] [place] [address] [place], [address], 05/22/2023 05:57:29 07/01/20 23 07/02/2023 IMAGE -GUID ED PAP W/AGE BASED SCR CIELO COLS comment Not Available [facility] [address] [facility] [place], [address], 07/02/2023 21:05:54 07/01/20 23 07/02/2023 IMAGE -GUID ED PAP W/AGE BASED SCR CIELO COLS report status: Not Available [facility] [address], [place], [address], 07/02/2023 21:05:54 07/01/20 23 07/02/2023 IMAGE -GUID ED PAP W/AGE BASED SCR CIELO COLS clinical information: Not Available [facility] [address], [place], [address], 07/02/2023 21:05:54 07/01/20 23 07/02/2023 IMAGE -GUID ED PAP W/AGE BASED SCR CIELO COLS LMP: Not Available [facility] [place] [facility] [address] [place], [address], 07/02/2023 21:05:54 07/01/20 23 07/02/2023 IMAGE -GUID ED PAP W/AGE BASED SCR CIELO COLS prev. Pap: Not Available [facility] [place] [facility] [address] [place], [address], 07/02/2023 21:05:54 07/01/20 23 07/02/2023 IMAGE -GUID ED PAP W/AGE BASED SCR CIELO COLS prev. BX: Not Available [facility] [place] [facility] [address] [place], [address], 07/02/2023 21:05:54 07/01/20 23 07/02/2023 IMAGE -GUID ED PAP W/AGE BASED SCR CIELO COLS source: Not Available [facility] [place] [facility] [address] [place], [address], 07/02/2023 21:05:54 07/01/20 23 07/02/2023 IMAGE -GUID ED PAP W/AGE BASED SCR CIELO COLS statement of adequacy: Not Available [email or web address] [place] [facility] [address] [place], [address], 07/02/2023 21:05:54 07/01/20 23 07/02/2023 IMAGE -GUID ED PAP W/AGE BASED SCR CIELO COLS general categorizati on: Not Available [facility] [place] [facility] [address] [place], [address], 07/02/2023 21:05:54 07/01/20 23 07/02/2023 IMAGE -GUID ED PAP W/AGE BASED SCR CIELO COLS interpretati on/result: Not Available [facility] [place] [facility] [address] [place], [address], 07/02/2023 21:05:54 07/01/20 23 07/02/2023 IMAGE -GUID ED PAP W/AGE BASED SCR CIELO COLS infection: Not Available [facility] [place] [facility] [address] [place], [address], 07/02/2023 21:05:54 07/01/20 23 07/02/2023 IMAGE -GUID ED PAP W/AGE BASED SCR CIELO COLS comment: Not Available [facility] [place] [facility] [address] [place], [address], 07/02/2023 21:05:54 07/01/20 23 07/02/2023 IMAGE -GUID ED PAP W/AGE BASED SCR CIELO COLS cytotechnolo gist: Not Available [facility] [place] [facility] [address] [place] [place], [address], 07/02/2023 21:05:54 07/01/20 23 07/02/2023 IMAGE -GUID ED PAP W/AGE BASED SCR CIELO COLS review cytotechnolo gist: Not Available [facility] [place] [facility] [address] [place], [address], 07/02/2023 21:05:54 07/01/20 23 07/02/2023 IMAGE -GUID ED PAP W/AGE BASED SCR CIELO COLS pathologist: Not Available [facility] [place] [facility] [address] [place], [address], 07/02/2023 21:05:54 07/01/20 23 07/02/2023 IMAGE -GUID ED PAP W/AGE BASED SCR CIELO COLS chlamydia trachomatis RNA, tma, urogenital NOT DETECT ED not detect ed normal Not Available [facility] [place] [facility] [address] [place], [address], 07/02/2023 21:05:54 07/01/20 23 07/02/2023 IMAGE -GUID ED PAP W/AGE BASED SCR CIELO COLS neisseria gonorrhoeae RNA, tma, urogenital NOT DETECT ED not detect ed normal Not Available [facility] [address] [place], [address], 07/02/2023 21:05:54 07/01/20 23 07/02/2023 IMAGE -GUID ED PAP W/AGE BASED SCR CIELO COLS comment The marivel tical perfo rmanc e bren cteri stics of this assay , when used to test SureP ath(T M) speci mens have been deter mined by [facility]. The modif icati ons have not been clear ed or appro kiera by the FDA. This assay has been valid ated pursu ant to the CLIA regul ation s and is used for clini saleem purpo ses. For addit ional infor ric amado e refer to https ://ed ucati on.qu estCambridge Select. [facility]/f aq/FA Q154 (This link is being provi ded for infor mattea n/ educa megan l purpo ses only. ) Not Available [facility] [address], [place], [address], 07/02/2023 21:05:54 07/01/20 23 07/05/2023 IMAGE -GUID ED PAP W/AGE BASED SCR CIELO COLS comment This order for age-b ased cervi saleem cance r and STI scree betty follo ws ACOG guide lines (PB 168, 140, FAQ07 1). See indiv idual assay s for perfo rming site locat ion. Not Available [facility] [address] [place], [address], 07/05/2023 16:11:09 07/01/20 23 07/05/2023 IMAGE -GUID ED PAP W/AGE BASED SCR ICELO COLS clinical information: normal None given Not Available [facility] [place] [facility] [address] [facility] [place], [address], 07/05/2023 16:11:09 07/01/20 23 07/05/2023 IMAGE -GUID ED PAP W/AGE BASED SCR CIELO COLS LMP: normal NONE GIVEN Not Available [facility] [place] [facility] [address] [facility] [place], [address], 07/05/2023 16:11:09 07/01/20 23 07/05/2023 IMAGE -GUID ED PAP W/AGE BASED SCR CIELO COLS prev. Pap: normal NONE GIVEN Not Available [facility] [place] [facility] [address] [facility] [place], [address], 07/05/2023 16:11:09 07/01/20 23 07/05/2023 IMAGE -GUID ED PAP W/AGE BASED SCR CIELO COLS prev. BX: normal NONE GIVEN Not Available [facility] [place] [facility] [address] [facility] [place], [address], 07/05/2023 16:11:09 07/01/20 23 07/05/2023 IMAGE -GUID ED PAP W/AGE BASED SCR CIELO COLS source: normal other Not Available [email or web address] [place] [facility] [address] [facility] [place], [address], 07/05/2023 16:11:09 07/01/20 23 07/05/2023 IMAGE -GUID ED PAP W/AGE BASED SCR CIELO COLS statement of adequacy: normal Satis facto ry for evalu ation . Endoc ervic al/tr ansfo rmati on zone compo nent prese nt. Age and/o r menst rual statu s not provi ded Not Available [email or web address] [place] [facility] [address] [facility] [place], [address], 07/05/2023 16:11:09 07/01/20 23 07/05/2023 IMAGE -GUID ED PAP W/AGE BASED SCR CIELO COLS interpretati on/result: normal Cytol ogy Resul ts: Negat bryant for intra epith elial lesio n or malig rui . Not Available [facility] [place] [facility] [address] [place], [address], 07/05/2023 16:11:09 07/01/20 23 07/05/2023 IMAGE -GUID ED PAP W/AGE BASED SCR CIELO COLS comment: normal This Pap test has been evalu ated with compu ter mohan neves techn ology . Not Available [facility] [place] [facility] [address] [place], [address], 07/05/2023 16:11:09 07/01/20 23 07/05/2023 IMAGE -GUID ED PAP W/AGE BASED SCR CIELO COLS cytotechnolo gist: normal SXO, CT( CP) CT Scree betty locat ion: [facility] [place] [address] [facility] [place] [address] Not Available [facility] [place] [facility] [address] [place], [address], 07/05/2023 16:11:09 07/01/20 23 07/05/2023 IMAGE -GUID ED PAP W/AGE BASED SCR CIELO COLS comment EXPLA NATOR Y NOTE: The Pap is a scree betty test for cervi saleem cance r. It is not a diagn ostic test and is subje ct to false negat bryant and false posit bryant resul ts. It is most relia ble when a satis facto ry sampl e, regul josie obtai ayana, is submi tted with relev ant clini saleem findi ngs and histo ry, and when the Pap resul t is evalu ated along with histo carmel and curre nt clini saleem infor matio n. Not Available [facility] [place] [facility] [address] [place], [address], 07/05/2023 16:11:09 07/01/20 23 07/05/2023 IMAGE -GUID ED PAP W/AGE BASED SCR CIELO COLS chlamydia trachomatis RNA, tma, urogenital NOT DETECT ED not detect ed normal Not Available [facility] [place] [facility] [address] [place], [address], 07/05/2023 16:11:09 07/01/20 23 07/05/2023 IMAGE -GUID ED PAP W/AGE BASED SCR CIELO COLS neisseria gonorrhoeae RNA, tma, urogenital NOT DETECT ED not detect ed normal Not Available [facility] [place] [facility] [address] [facility], [place], [address], 07/05/2023 16:11:09 07/01/20 23 07/05/2023 IMAGE -GUID ED PAP W/AGE BASED SCR CIELO COLS comment The marivel tical perfo rmanc e bren cteri stics of this assay , when used to test SureP ath(T M) speci mens have been deter mined by [facility]. The modif icati ons have not been clear ed or appro kiera by the FDA. This assay has been valid ated pursu ant to the CLIA regul ation s and is used for clini saleem purpo ses. For addit ional infor ric amado e refer to https ://ed ucati on.qu estCambridge Select. com/f aq/FA Q154 (This link is being provi ded for infor jayant dey/ reji garvey purpo ses only. ) Not Available [facility] [place] [facility] [address] [facility], [place], [address], 07/05/2023 16:11:09 07/01/20 23 07/01/2023 pregn wallace test, urine HCG negati ve Not Available [facility] [address] [facility], [place], [address], 07/01/2023 11:03:17 04/22/2004/22/2023 US, trans vagin al No observ ation record ed. [email or web address] [address], [place], [address], 04/26/2023 09:30:51 Result Notes None recorded. Problems Name Problem SNOMED Code Status Onset Date Resolution Date Notes Provider Name and Address Organization Details Recorded Time Pregnanc y 37436410 Completed 202107/01/2023 Melanie wilhelm [employer] 3 10:56:48 RhD negative 429686619 Completed S/p Rhogam @ 28 weeks (03/05/23 ) Melanie wilhelm [email or web address] 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 FOB carrier testing negative Melanie wilhelm [employer] 3 10:56:38 Nausea and vomiting 38658774 Active 2021 Juanis Bryan, [employer] [address] [place] [address], [phone] , [employer] 2 17:09:08 Hydronep hrosis 77341675 Active 2022 S/p PERC neph tube until delivery by urology, will d/c postpart um, taking muscle relaxer prn, MFM recommen ded delivery @ 38 weeks Melanie wilhelm [employer] 3 10:56:38 Renal angle tenderne ss 053493819 Active 2022 Praveena Webb MD [address] [place] [address], [phone] , [employer] 3 15:42:05 Blood in urine 83161750 Active 2022 Praveena Webb MD [address] [place] [address], [phone] , [employer] 3 15:18:43 Headache 76164282 Active 2022 Praveena Webb MD [address] [place] [address], [id number] , [employer] 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 FOB carrier testing negative Melanie Koenigkenyatta wilhelm [employer] 3 10:56:38 RhD negative [id number] Active S/p Rhogam @ 28 weeks (03/05/23 ) Melaniemichael wilhelm [employer] 3 10:56:38 Hydronep hrosis [id number] Completed 2022 S/p PERC neph tube until delivery by urology, will d/c postpart um, taking muscle relaxer prn, MFM recommen ded delivery @ 38 weeks Melaniemichael wilhelm [employer] 3 10:56:38 Reduced movement 160558639 Active 2022 Praveena Webb MD [address] [place] [address], [id number] , [employer] 3 10:05:33 Anemia of pregnanc y 10487904 Active 2022 Juanis Bryan APRN [address] [place] [address], [id number] , [employer] 3 11:03:22 High risk pregnanc y 34270910 Active 2022 Praveena Webb MD [address] [place] [address], [id number] , [employer] 3 09:42:00 Candidia sis of vagina [id number] Active 2022 Praveena Webb MD [address] [place] [address], [phone] , [employer] 3 06:31:11 Miscarri age without complica tion [id number] Completed 201907/30/2022 Problem Code: O03.4; Problem Code Type: ICD-10; Juanis Bryan APRN [address] [place] [address], [phone] , [employer] 2 09:33:19 Fragile X chromoso me [id number] Active 2019 Problem Code: Q99.2; Problem Code Type: ICD-10; Not Available [facility] 2 21:11:13 Pelvic and perineal pain 199984382 Completed 202107/30/2022 Problem Code: R10.2; Problem Code Type: ICD-10; Juanis Bryan APRN [address] [place] [address], [address] [place] [address] , [employer] 2 09:33:34 Uses combined oral contrace ption [id number] Completed 202007/30/2022 Problem Code: Z30.011; Problem Code Type: ICD-10; Removal Reason: TTC Juanis Bryan APRN [address] [place] [address], [address] [place] [address] , [employer] 2 09:32:44 Surveill ance of contrace ption Completed 202007/30/2022 Juanis Bryan APRN [address] [place] [address], [address] [place] [address] , [employer] 2 09:33:30 Normal pregnanc y in primigra ishmael [id number] 4103 Completed 201907/30/2022 Juanis Bryan APRN [address] [place] [address], [address] [place] [address] , [employer] 2 09:33:24 Gestatio n period, 9 weeks 333726 Completed 201907/30/2022 Problem Code: Z3A.09; Problem Code Type: ICD-10; Removal Reason: resolved Juanis Bryan APRN [address] [place] [address], [phone] , [employer] 2 09:32:54 Blighted ovum [id number] Completed 201907/30/2022 Problem Code: O02.0; Problem Code Type: ICD-10; Removal Reason: resolved Juanis Bryan APRN [address] [facility], [place], [address] , [employer] 2 09:32:33 Uses depot contrace ption [id number] Completed 201907/30/2022 Removal Reason: TTC Juanis Bryan APRN [address] [place], [address] , [employer] 2 09:33:11 Blood group O Rh(D) negative 344433491 Active 2019 Problem Code: Z67.41; Problem Code Type: ICD-10; Not Available [facility] 21:11:14 Problem Notes None recorded. Procedures Surgical History Date Name Laterality Status Provider Name and Address Organization Details Recorded Time 03/29/20 25 IUD Removal completed Juanis Bryan APRN [address] [place], [phone], [employer] 03/29/2025 13:51:06 07/01/20 23 IUD Insertion completed Praveena Webb MD [address] [place] [address], [phone], [employer] 07/01/2023 10:54:03 07/01/20 23 Date of Last Pap Smear completed Francine Peralta [employer] 03/29/2025 12:55:56 04/16/20 23 NST completed Praveena Webb MD [address] [place] [address], [phone], [employer] 04/16/2023 10:06:32 12/13/19 21 dilation and curettage completed Not Available [facility] 07/21/2022 22:56:17 Dilation and Curettage completed [employer] 10/12/2022 13:43:46 percutaneous insertion of nephrostomy tube completed [employer] 04/16/2023 09:42:16 Imaging Results None recorded. Procedure Notes None recorded. Medical Equipment None Reported. Allergies No known drug allergies Medications Name Sig Start Date Stop Date Status Note LastModified by Organization Details LastModified Time labetalol 200 mg tablet TAKE ONE TABLET BY MOUTH TWICE DAILY active Not Available Not Available No t Available azithromyci n 250 mg tablet 07/30 completed Not Available Not Available Not Available ibuprofen 800 mg tablet TAKE 1 TABLET BY MOUTH EVERY 8 HOURS FOR 2 WEEKS 07/30 completed Not Available Not Available Not Available ofloxacin 0.3 % eye drops 02/03 completed Not Available Not Available Not Available fluconazole 150 mg tablet TAKE 1 TABLET BY MOUTH EVERY 72 HOURS 09/02 completed Not Available Not Available Not Available hydrocodone 5 mg-acetamin ophen 325 mg tablet TAKE ONE TABLET BY MOUTH EVERY 6 HOURS NEEDED FOR PAIN MAY CAUSE DROWSINES S 03/19 completed Not Available Not Available Not Available promethazin e 12.5 mg tablet Take 1 tablet every 6 hours by oral route as needed. 02/03 completed Not Available Not Available Not Available ondansetron HCl 4 mg tablet TAKE TWO TABLETS BY MOUTH TWICE DAILY 03/29 completed Not Available Not Available Not Available prednisone 20 mg tablet TAKE 1 TABLET BY MOUTH TWICE DAILY FOR 3 DAYS 07/30 completed Not Available Not Available Not Available metronidazo le 500 mg tablet TAKE ONE TABLET BY MOUTH TWICE DAILY FOR 7 DAYS -- FINISH ALL MEDICINE -- 06/10 completed Not Available Not Available Not Available ondansetron 8 mg disintegrat ing tablet place 1 tablet (8 mg) on top of the tongue where it will dissolve, then swallow by transling ual route every 8 hours as needed for nausea 08/12 completed Not Available Not Available Not Available Miconazole- 7 2 % vaginal cream insert 1 APPLICATO RFUL intravagi simón EVERY DAY AT BEDTIME FOR 7 DAYS 03/29 completed Not Available Not Available Not Available propranolol 10 mg tablet TAKE ONE TABLET BY MOUTH TWICE DAILY 03/29 completed Not Available Not Available Not Available tamsulosin 0.4 mg capsule TAKE ONE CAPSULE BY MOUTH EVERY DAY 03/19 completed Not Available Not Available Not Available cephalexin 500 mg capsule TAKE 1 CAPSULE BY MOUTH 4 TIMES DAILY 02/03 completed Not Available Not Available Not Available pantoprazol e 40 mg tablet,mamadou yed release TAKE ONE TABLET BY MOUTH EVERY DAY 03/29 completed Not Available Not Available Not Available misoprostol [address] 4 tablets (800 mcg) vaginally 07/30 completed Not Available Not Available Not Available docusate sodium 100 mg capsule TAKE ONE CAPSULE BY MOUTH TWICE DAILY with meals 03/29 completed Not Available Not Available Not Available ibuprofen 600 mg tablet TAKE ONE TABLET BY MOUTH EVERY 6 HOURS NEEDED FOR mild pain (1 TO 3 ON pain scale) --TAKE WITH FOOD-- 03/29 completed Not Available Not Available Not Available methylpredn isolone 4 mg tablets in a dose pack TAKE BY MOUTH DIRECTED ON INSIDE OF PACKAGE FOR 6 DAYS 07/30 completed Not Available Not Available Not Available labetalol 100 mg tablet TAKE ONE TABLET BY MOUTH TWICE DAILY 03/29 completed Not Available Not Available Not Available propranolol 20 mg tablet TAKE ONE TABLET BY MOUTH THREE TIMES DAILY 03/29 completed Not Available Not Available Not Available Percocet 5 mg-325 mg tablet Take 1 tablet every 6 hours by oral route as needed. 06/10 completed Not Available Not Available Not Available bromphenira mine-pseudo ephedrine-D M 2 mg-30 mg-10 mg/5 mL oral syrup TAKE 5 ML BY MOUTH EVERY 6 HOURS NEEDED FOR COUGH 07/30 completed Not Available Not Available Not Available ondansetron 4 mg disintegrat ing tablet DISSOLVE 1 TABLET IN MOUTH THREE TIMES DAILY NEEDED FOR NAUSEA 07/30 completed Not Available Not Available Not Available cefdinir 300 mg capsule TAKE 1 CAPSULE BY MOUTH TWICE DAILY 07/30 completed Not Available Not Available Not Available oxycodone 5 mg tablet 04/16 completed Not Available Not Available Not Available cyclobenzap rine 5 mg tablet 05/04 completed Not Available Not Available Not Available Dep[employer] Attendant a 06/05 completed Not Available Not Available Not Available 03/29 completed Not Available Not Available Not Available drospirenon e 3 mg-ethinyl estradiol 0.02 mg tablet take 1 tablet by oral route once daily 07/04 completed Not Available Not Available Not Available FeroSul 325 mg (65 mg iron) tablet TAKE ONE TABLET BY MOUTH TWICE DAILY 03/29 completed Not Available Not Available Not Available [employer]AM Ultra-Filte red PLUS 1,500 unit (300 mcg) intramuscul ar syringe Inject 300 microgram s by intramusc ular route. 04/01 completed Not Available Not Available Not Available Pro Fe 180 mg iron capsule TAKE ONE CAPSULE BY MOUTH TWICE DAILY active Not Available Not Available No t Available 1st Medx-Patch With Lidocaine 06/10 completed Not Available Not Available Not Available sodium chloride 0.9 % injection syringe 04/22 completed Not Available Not Available Not Available Vitals Date Recorded Body weight Heart rate Oxygen saturation Oxygen saturation in Arterial blood by Pulse oximetry Body mass index (BMI) Body height Systolic And Diastolic Provider Name and Address Organization Details Last Updated DateTime 75502.6 1 g 70 /min 99 % 99 % 23.4 kg/m2 167.64 cm 110/62 mm[Hg] Autumn Ricci [employer] 12:58:44 Date Recorded Body height Body mass index (BMI) Body weight Systolic And Diastolic Provider Name and Address Organization Details Last Updated DateTime 05/13/2023 167.64 cm 25.3 kg/m2 81084.283 616 g 100/60 mm[Hg] Francine Peralta [employer]. 05/13/2023 09:22:26 Date Recorded Body height Body mass index (BMI) Systolic And Diastolic Provider Name and Address Organization Details Last Updated DateTime 06/10/2023 167.64 cm 23.2 kg/m2 116/74 mm[Hg] SUNDAY DIANA [employer]. 06/10/2023 10:30:24 Date Recorded Body weight Provider Name an d Address Organization Details Last Updated DateTime 06/10/2023 25865.192739 g [employer]. 07/01/2023 10:56:42 Date Recorded Body weight Provider Name an d Address Organization Details Last Updated DateTime 07/01/2023 36500.742398 g [employer] 07/01/2023 10:56:42 Date Recorded Body height Body mass index (BMI) Systolic And Diastolic Provider Name and Address Organization Details Last Updated DateTime 07/01/2023 167.64 cm 22.6 kg/m2 110/68 mm[Hg] Francine Peralta [employer] 07/01/2023 10:14:38 Date Recorded Body height Body mass index (BMI) Body weight Systolic And Diastolic Provider Name and Address Organization Details Last Updated DateTime 08/26/2023 167.64 cm 22.8 kg/m2 60341.52 g 108/66 mm[Hg] Francine Peralta [employer] 08/26/2023 15:25:48 Social History Question Answer Notes LastModified by Organizat ion Details LastModified Time Tobacco Smoking Status Never Smoker [employer]His t[employer]Quest ion: 'Tobacco/ Alcohol/S upplement s'; SocialHis toryRespo nse: 'Never Smoker'; Not Available [facility] 07/21/2022 22:55:35 Do You Have An Advance Directive? No Information not available 07/30/2022 Is Your Home Air Conditioned? Yes Information not available 10/12/2022 If You Are , What Was Your Level Of Alcohol Consumption Prior To ? Occasional Information not available 10/12/2022 Do You Wear A Helmet When Biking? Yes Information not available 10/12/2022 Are You Blind Or Do You Have Difficulty Seeing? No Information not available 07/30/2022 Are You A Caregiver? No Information not available 07/30/2022 In The 14 Days Before Symptom Onset, Have You Had Close Contact With A Laboratory-confir med COVID-19 While That Case Was Ill? No Information not available 04/16/2023 In The 14 Days Before Symptom Onset, Have You Had Close Contact With A Person Who Is Under Investigation For COVID-19 While That Person Was Ill? No Information not available 04/16/2023 Have You Been To An Area Known To Be High Risk For COVID-19? No Information not available 04/16/2023 Are You Deaf Or Do You Have Serious Difficulty Hearing? No Information not available 07/30/2022 What Type Of Diet Are You Following? REGULAR Information not available 10/12/2022 Who Is Your Employer? [employer] [email or web address] Information not available 09/02/2022 How Many Days Of Moderate To Strenuous Exercise, Like A Brisk Walk, Did You Do In The Last 7 Days? 2 Information not available 10/12/2022 Have There Been Any Changes To Your Family Or Social Situation? No Information no t available 07/30/2022 Are There Any Guns Present In Your Home? Yes Information not available 10/12/2022 Which Of Your Hands Is Dominant? Right Information not available 07/30/2022 What Is Your Home Situation? Mother Information not available 10/12/2022 Do You Have A Medical Power Of Blurb Writer? No Information not available 07/30/2022 What Was The Date Of Your Most Recent Tobacco Screening? 03/29/2025 [email or web address] Information not available 03/26/2025 Do You Have Any Pets? Yes Information not available 10/12/2022 Do You Use Protection During Sex? No Information not available 10/12/2022 What Is Your Relationship Status? Single Information not available 10/12/2022 Do You Use Your Seat Belt Or Car Seat Routinely? Yes Information not available 10/12/2022 Are You Sexually Active? Yes Information not available 10/12/2022 Do You Have Any Siblings? 2 Information not available 10/12/2022 Do You Have Smoke And Carbon Monoxide Detectors In Your Home? Yes Information not available 10/12/2022 Are You Passively Exposed To Smoke? No Information no t available 10/12/2022 Are There Any Smokers In Your House? No Information not available 10/12/2022 Do You Use Sunscreen Routinely? Yes Information not available 10/12/2022 Has Tobacco Cessation Counseling Been Provided? No Information not available 03/29/2025 Have You Recently Traveled Abroad? No Information not available 04/16/2023 Do You Have Difficulty Walking Or Climbing Stairs? No Information not available 07/30/2022 Are You Currently In School? No Information not available 07/30/2022 Sex: Female Functional Status Question Answer Note LastModified by Organizat ion Details LastModified Time Do you use any illicit or recreational drugs? No Information not available 10/12/2022 Do you or have you ever used any other forms of tobacco or nicotine? No [email or web address] Information not available 03/29/2025 Are you currently employed? Yes Information not available 07/30/2022 Do you have transportation difficulties? No Information not available 07/30/2022 Are you able to walk? YESWOREST Information not available 07/30/2022 Do you have difficulty doing errands alone? No Information not available 07/30/2022 Are you able to care for yourself? Yes Information not available 07/30/2022 Do you have difficulty dressing or bathing? No Information not available 07/30/2022 What is your exercise level? Moderate Information not available 10/12/2022 Mental Status Question Answer Note LastModified by Organizat ion Details LastModified Time Do you feel stressed (tense, restless, nervous, or anxious, or unable to sleep at night)? [id number] Information not available 10/12/2022 Do you have difficulty concentrating, remembering or making decisions? No Information no t available 07/30/2022 Are you or have you been involved with bullying? No Information not available 10/12/2022 Family History Relationship Description Onset Age of this Age Resolved Age Notes LastModified by Organization Details LastModified Time Father No current problems or disability Not available 10/12 13:43:34 Father Harmful pattern of use of alcohol Not available 2021 13:43:34 Mother No current problems or disability Not available 10/12 13:43:34 Maternal Grandmother Hepatic failure Not available 2021 13:43:34 Maternal Grandmother Family history of cancer of colon Not available 2021 13:43:34 Maternal Grandfather Malignant tumor of colon Not available 2021 13:43:34 Notes:*Procedure Description : Documented family medical history in mother*Relative: Mother *Procedure Description: Documented family medical history in father*Relative: Father *Procedure Description: Documented family medical history in sister*Relative: Sister *Procedure Description: Documented family medical history in brother*Relative: Brother *Procedure Description: Family medical history unremarkable*Relative: Unspecified Relation *Problem: Relative: ''; Medical History Condition Response Other N Hyperthyroidism N Blood Transfusion N Dermatologic Disorders N Gestational Diabetes N Anxiety Disorder N Autoimmune disease N Vision or Eye Problems N Arthritis N Infertility N Polyps N Mental Disorder N Acid Reflux (GERD) N Cancer N Stroke N Neurologic/Epilepsy N Headaches N Fibromyalgia N Kidney Disease N Heart Problems N Hospitalizations N Kidney or Bladder Problems N Acne N Eating Disorder N Art (IVF or FET) N Hepatitis/Liver Disease N Asthma N Trauma/Violence N Substance Abuse N Thrombophilias N Allergies (Food, seasonal, environmental ) N Drug/Latex Allergies/Reactions N Breast Cancer N Lung Disease N Hypothyroidism N Defects or Inherited Disease N Breast Problem N Hematologic disorders N Anesthesia Complications N History of STI N Deep Vein Thrombosis N Polycystic ovary syndrome N Congenital Anomalies N History of abnormal pap N Endometriosis N High Cholesterol N Psychiatric/Mental Health Condition N Organ Transplant N Dialysis N Schizophrenia N Thyroid Problems N GI Problems N Anemia N Mental Illness N Diabetes N Ovarian Cancer N Pulmonary (TB, Asthma) N Eczema N Abuse/Domestic Violence N Depression/ depression N Heart Disease N Pre-Eclampsia N Hypertension N Osteoporosis N Gynecological History Statement/Question Response Abnormal Pap N Flow Moderate Date of LMP 08/18/2022 On BCP's at Conception? N STIs/STDs N HPV Vaccine N Duration of Flow (days) 7 Current Control Method None Age at Menarche 12 Sexually Active? Y Menses Monthly Y Date of Last Pap Smear 07/01/2023 Sexual Problems? N LMP Approximate Obstetrics History GPAL:G 2 P 2 0 1 1 Type Value Multiple Births 0 Full Term 2 Induced 0 Spontaneous 1 Premature 0 Living 1 Ectopics 0 Total 2 Immunizations Vaccine Type Date Status Note Provider Willie hernandez and Address Organization Details Recorded Time Hep A, ped/adol, 2 dose 8 completed [facility] [place] [facility]. 10/29/2022 16:31:30 HPV9 3 completed Not Available [facility] 07/21/2022 23:47:56 HPV9 4 completed Not Available [facility] 07/21/2022 23:47:57 MMR 2 completed Not Available [facility] 07/21/2022 23:47:57 MMR 6 completed Not Available [facility] 07/21/2022 23:47:57 IPV 2 completed Not Available [facility] 07/21/2022 23:47:57 IPV 1 completed Not Available [facility] 07/21/2022 23:47:57 IPV 6 completed Not Available [facility] 07/21/2022 23:47:57 IPV 1 completed Not Available [facility] 07/21/2022 23:47:57 Tdap 8 completed ADI THOMSON Tintri, [employer] 05/04/2023 11:26:30 varicella 2 completed Not Available [facility] 07/21/2022 23:47:57 varicella 7 completed Not Available [facility] 07/21/2022 23:47:57 Hep B, adolescent or pediatric 1 completed Not Available [facility] 07/21/2022 23:47:57 Hep B, adolescent or pediatric 1 completed Not Available [facility] 07/21/2022 23:47:57 Hep B, adolescent or pediatric 1 completed Not Available [facility] 07/21/2022 23:47:58 DTaP, unspecified formulation 2 completed ADI THOMSON null, [employer] 05/04/2023 11:26:30 pneumococcal conjugate PCV 7 1 completed CHAMPMICHAEL wilhelm, [employer] 10/29/2022 16:31:30 COVID-19, mRNA, LNP-S, PF, 100 mcg/0.5mL dose or 50 mcg/0.25mL dose 1 completed CHAMPMICHAEL VELEZ null, [employer] 10/29/2022 16:31:30 pneumococcal conjugate PCV 7 1 completed [employer], [employer] 10/29/2022 16:31:30 Hib (PRP-T) 2 completed [employer], [employer] 10/29/2022 16:31:30 Td (adult), 2 Lf tetanus toxoid, preservative free, adsorbed 8 completed [facility] 10/29/2022 16:31:30 DTaP, 5 pertussis antigens 1 completed [employer], [employer] 10/29/2022 16:31:30 DTaP, 5 pertussis antigens 1 completed [facility] 10/29/2022 16:31:30 COVID-19, mRNA, LNP-S, PF, 100 mcg/0.5mL dose or 50 mcg/0.25mL dose 1 completed [facility]. 10/29/2022 16:31:30 HPV, quadrivalent 2 completed [facility] 10/29/2022 16:31:30 Rho(D) -IG IM 0 completed [facility] 10/29/2022 16:31:30 DTaP, 5 pertussis antigens 1 completed [facility] 10/29/2022 16:31:30 DTaP, 5 pertussis antigens 2 completed [employer], [employer] 10/29/2022 16:31:30 Meningococcal MCV4O 2 completed [employer], [employer] 10/29/2022 16:31:30 DTaP, 5 pertussis antigens 6 completed [employer], [employer]. 10/29/2022 16:31:30 Hib (PRP-T) 1 completed [facility] 10/29/2022 16:31:30 Tdap 2 completed [facility] [employer]3 membrane null, [employer] 10/29/2022 16:31:30 Hib (PRP-T) 1 completed [employer] null, [employer] 10/29/2022 16:31:30 Hep A, adult 1 completed [employer] null, [employer] 10/29/2022 16:31:30 pneumococcal conjugate PCV 7 1 completed [employer] null, [employer] 10/29/2022 16:31:30 meningococcal MCV4P 8 completed [employer] membrane null, [employer] 10/29/2022 16:31:30 Hib (PRP-T) 1 completed [employer], [employer] 10/29/2022 16:31:30 Tdap 3 completed Praveena Webb MD [address] [place] [address], [phone], [employer] 03/05/2023 10:37:47 Past Encounters Encounter ID Performer Location Encounter Start Date Encounter Closed Date Diagnosis/Indication Diagnosis SNOMED-CT Code Diagnosis ICD10 Code Diagnosis Note [id number] Juanis [facility] [address] [place] [id number] 07/30/2022 08:49:04 07/30/2022 09:29:05 Candidiasis of vagina 32435450 B37.3 [id number] Juanis Bryan [facility] [place] [address] [place] [id number] 09/02/2022 14:57:57 09/02/2022 16:12:51 Female infertility 6902428 N97.9 [id number] Juanis Bryan [facility] [place] [address] [place] [id number] 10/12/2022 13:38:23 10/12/2022 14:59:23 Intrauterine 57241100 Z34.90 [id number] Juanis Bryan [facility] [place] [address] [place] [id number] 10/29/2022 16:10:44 10/29/2022 17:29:25 27100419 Z33.1 screening 2437 77664 Z36.0 [id number] Praveena Webb MD [facility] [place] [address] [place], [place] [id number] 12/04/2022 16:21:06 12/04/2022 17:56:04 [id number] Z33.1 Blood grou p O Rh(D) negative 369443252 Z67.41 Nausea and vomiting 1691999 R11.2 [id number] Juanis Bryan [employer] [facility] [place] [address] [place] [id number] 01/01/2023 13:35:09 01/01/2023 14:35:55 [id number] Z33.1 [id number] GAIL LEZAMA MD [facility] [place] [address] [place], [place] [id number] 01/18/2023 15:44:52 01/20/2023 13:43:56 Intrauterine 45846508 Z34.92 [id number] [facility] [place] [address] [place] [id number] 02/03/2023 13:59:18 02/03/2023 15:53:53 [id number] Z33.1 verb report from U/S tech is that anatomy scan is complete and normal [id number] GAIL LEZAMA MD [facility] [place] [address] [place] [id number] 02/17/2023 15:47:53 02/18/2023 15:30:09 Intrauterine 81728553 Z34.92 [id number] Z33.1 [id number] Praveena Webb MD [facility] [place] [address] [place] [id number] 03/05/2023 08:37:58 03/05/2023 09:35:02 Normal in primigravida 5843972605 86584 Z34.02 Routine an tenatal care 939969974 Z34.92 [id number] Praveena Webb MD [facility] [address] [place] [id number] 03/10/2023 14:35:25 03/10/2023 15:48:00 Intrauterine 80384072 Z34.92 Hydronephrosis 84033665 N13.30 Renal angl e tenderness 386702652 R10.829 Nausea and vomiting 1693 1999 R11.2 [id number] Juanis Bryan APRN [facility] [address] [place] [id number] 03/19/2023 09:22:28 03/19/2023 09:52:24 [id number] Z33.1 support 40 2017185 Z39.1 Hydronephrosis 51655547 N13.30 [id number] Praveena Webb MD [facility] [address] [place] [id number] 04/01/2023 14:15:57 04/01/2023 15:48:43 [id number] Z33.1 Blood in urine 55997950 R31.9 Headache 73123596 R51.9 Elevated blood-pressure reading without diagnosis of hypertension 500646428 R03.0 [id number] Praveena Webb MD [facility] [address] [place] [id number] 04/16/2023 09:22:19 04/16/2023 10:51:09 [id number] Z33.1 Reduced fe brianna movement 834505394 O36.8199 [id number] [facility] [address] [place] [id number] 04/22/2023 13:42:12 04/22/2023 16:52:36 [id number] Z33.1 History of removal of calculus of renal pelvis through percutaneous nephrostomy [id number] Z87.055 [id number] Juanis Bryan APRN [facility] [address], [place] [address] 04/28/2023 10:45:17 04/28/2023 13:34:53 [id number] Z33.1 [id number] Britt Jackman CNM [facility] [address], [place] [address] 05/04/2023 11:03:28 05/04/2023 12:02:55 [id number] Z33.1 [id number] Juanis Bryan APRN [facility] [address], [place] [address] 05/07/2023 09:39:42 05/07/2023 10:59:29 [id number] Z33.1 [id number] Praveena Webb MD [facility] [address] [place] [address] 05/13/2023 09:20:12 05/13/2023 10:24:30 Intrauterine [id number] Z34.90 High risk 4720 0007 O09.93 [id number] Praveena Webb MD [facility] [address], [place] [address] 06/10/2023 10:16:13 06/10/2023 11:06:36 care [id number] Z39.2 [id number] [facility] [address] [place] [address] 07/01/2023 09:57:34 07/01/2023 11:51:53 Insertion of intrauterine contraceptive device 29760102 Z30.430 Screening for malignant neoplasm of cervix [id number] Z12.4 [id number] Praveena Webb MD [facility] [address] [place] [address] 08/26/2023 15:20:35 08/26/2023 16:01:06 [id number] Juanis Bryan APRN [facility] [address] [place] [address] 03/29/2025 12:53:25 03/30/2025 15:55:58 Removal of intrauterine contraceptive device [id number] Z30.432 Health Concerns Section Related Observation LastModified by Organization Detai ls LastModified Time None Recorded Concern Status LastModified by Organization Details LastModified Time None Recorded Advance Directives Directive N: Payers Insurance Date Sequence Insurance Name Policy Number Policy Herring Covered Member ID Herring Member ID Guarantor Name 03/26/2025 1 [place] [id number] Trevor Brwon Ina [id number] Hitesh Buckley 01/06/2023 2 [facility] (MEDICAID HMO) Hitesh Chantell Kesha [id number] Hitesh Chantell Ina 07/30/2022 1 *SELF PAY* Al janee Buckley Notes Date Note Type Note Provider Name and Address Organization Details Recorded Time 05/13/2023 text/html 23yo presents for AMIRAH. Denies vaginal bleeding, leaking of fluid or natividad. Endorses +FM. She is s/p PERC neph tube right-sided severe hydronephrosis. Urology plans to d/c tube after delivery. She is still in quite a bit of pain but overall feels better. Praveena Webb MD [address] [place] [address], [phone], [facility] [employer], [facility]. 05/13/2023 13:26:12 06/10/2023 text/html VisitReported bypatient.Quality:NS VD Context:no complications; feeding choice: breast and bottle; good support from partner/family; resumed sexual activity no; Pumping Associated Symptoms:no abnormal bleeding; no vaginal discharge; no pelvic pain; laceration well healed; no constipation; no fecal incontinence; no dysuria; no urinary incontinence; no fever; no problems; no mastitis; normal mood; no uterine cramping 23 yo G2 now P1011 presents for routine care, status post vaginal delivery 3 weeks ago. She had her PERC neph tube right-sided severe hydronephrosis removed at under fluro. Normal lochia. Plans for Paragard. EPDS = 4. Praveena Webb MD [address] [place] [address], [phone], [employer]. 06/10/2023 11:01:22 07/01/2023 text/html VisitReported bypatient.Quality:NS VD Context:no complications; feeding choice: breast; good support from partner/family; resumed sexual activity no; Pumping Associated Symptoms:no abnormal bleeding; no vaginal discharge; no pelvic pain; laceration well healed; no constipation; no fecal incontinence; no dysuria; no urinary incontinence; no fever; no problems; no mastitis; normal mood; no uterine cramping Contraception Plan:IUD copper 23 yo G2 now P1011 presents for routine care, status post vaginal delivery 6 weeks ago. She had her PERC neph tube right-sided severe hydronephrosis removed at under fluro. Normal lochia. Plans for Paragard. EPDS = 4---> 3. She is still breast-feeding and pumping. Praveena Webb MD [address] [place] [address], [phone], [employer]. 07/05/2023 14:52:38 08/26/2023 text/html VisitReported bypatient.Quality:NS VD Context:no complications; feeding choice: breast; good support from partner/family; resumed sexual activity no; Pumping Associated Symptoms:no abnormal bleeding; no vaginal discharge; no pelvic pain; laceration well healed; no constipation; no fecal incontinence; no dysuria; no urinary incontinence; no fever; no problems; no mastitis; normal mood; no uterine cramping Contraception Plan:IUD copper 23 yo presents for IUD string check, with Paragard. PHQ= 0. She is still breast-feeding and pumping. Amenorrheic. Praveena Webb MD [address] [place] [address], [phone], [employer]. 08/26/2023 15:51:08 03/29/2025 text/html Pt presents for removal of her paragard. She is planning to TTC. We discussed starting PNV. Pap UTD. Nml bowel and bladder function, mood is stable. No other complaints or concerns. Juanis rByan, WOOD HEEL ATTACHER [address] [facility], [place], [phone], [facility] [employer] 03/29/2025 13:52:37 OBGyn Episode Ob Episode Information Episode Created Date Number of Fetuses Patient Bloodtype Patient rh Status Prepregnancy Weight lbs Domestic Partner Domestic Partner Phone Father Name Direct Care Professional Status 10/12/20 22 1 O Negative 137.2 Denis White CLOSED Fetus Data First Name Last Name Admitted to NICU Weight (g) Sex Living Outcome Pediatric Complications Fetus ID Race Codes Race Delivery Type Killian castro 2948.34 8 M Full Term 2130-11 Other Race Vaginal Delivery Problems Problem Notes S/p genetic counseling @ [facility] eclines contraceptionPlans to pump Problem Name Start Date End Date Resolution Snomed Code Not e Hydronephrosis 03/10/2023 [id number] S/p PERC neph tube until delivery by urology, will d/c , taking muscle relaxer prn, MFM recommended delivery @ 38 weeks RhD negative MEDICATION [id number] S/p Rh ogam @ 28 weeks (03/05/23) 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 FOB carrier testing negative Aron Calculation Initial Aron Date Initial Exam Date Initial Exam Provider Initial Ultrasound Date Last Menstrual Period Date Ultra Sound Weeks Gestation 06/03/2023 10/12/2022 08/18/2022 0 Eighteen To Twenty Week Aron Update Ultra Sound Date Fundal Height At Umbil Quickening Date Ultra Sound Latest Weeks Gestation Final Aron Confirmed By Final Aron Confirmed Date Final Aron Date Ultra Sound Latest Days Gestation 0 [email or web address] 10/29/2022 06/03/20 23 0 Pre-brittney Flowsheet Flowsheet Date 10/12/2022 Beth Score Blood Edema Fundus Height Fundus Units Glucose Ketones Leukocytes Nitrite Labor Signs Protein Cervic Dilation Cervic Effacement Cervic Station none Type Weight in lbs Pre/Post Dialysis Refused Weight 137.339893450436 BP Diastolic BP Location Tested BP Systolic BP Type 66 110 Fetus Heart Rate Present Fetus Movement Comments 22 yo presents for N OB. She reports some n/v and pelvic pain- ruled out ectopic in ER. G1 was blighted ovum and she is a fragile x carrier- s/p genetic counseling. IUP with cardiac activity noted on BSUS, but unable to quantify heartbeat. Flowsheet Date 10/29/2022 Beth Score Blood Edema Fundus Height Fundus Units Glucose Ketones Leukocytes Nitrite Labor Signs Protein Cervic Dilation Cervic Effacement Cervic Station none Type Weight in lbs Pre/Post Dialysis Refused Weight 132.749972259142 BP Diastolic BP Location Tested BP Systolic BP Type 62 112 Fetus Heart Rate Present A 180 Fetus Movement Comments Size date discrepancy. Will change ARON. Desires Qnatal. Flowsheet Date 12/04/2022 Beth Score Blood Edema Fundus Height Fundus Units Glucose Ketones Leukocytes Nitrite Labor Signs Protein Cervic Dilation Cervic Effacement Cervic Station none none none neg Type Weight in lbs Pre/Post Dialysis Refused Weight 131.08862907713 BP Diastolic BP Location Tested BP Systolic BP Type 68 120 Fetus Heart Rate Present A 148 Present Fetus Movement A Yes Comments Flowsheet Date 01/01/2023 Beth Score Blood Edema Fundus Height Fundus Units Glucose Ketones Leukocytes Nitrite Labor Signs Protein Cervic Dilation Cervic Effacement Cervic Station none none none neg Type Weight in lbs Pre/Post Dialysis Refused Weight 131.231380392714 BP Diastolic BP Location Tested BP Systolic BP Type 64 108 Fetus Heart Rate Present A 143 Fetus Movement A Yes Comments Doing well. Anatomy in 2 [facility]. 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 No Qnatal done;. No MSAFP done. Scan incomplete today. Will order level 2, f/u in 2 weeks Flowsheet Date 02/03/2023 Beth Score Blood Edema Fundus Height Fundus Units Glucose Ketones Leukocytes Nitrite Labor Signs Protein Cervic Dilation Cervic Effacement Cervic Station none none none neg Type Weight in lbs Pre/Post Dialysis Refused Weight 141.930483163073 BP Diastolic BP Location Tested BP Systolic BP Type 66 L arm 92 sitting Fetus Heart Rate Present A 144 Fetus Movement A Yes Comments normal anatomy scan w MFM (v erb report only) Considering genetic grief counselor/testing but doubts she will do Flowsheet Date 02/17/2023 Beth Score Blood Edema Fundus Height Fundus Units Glucose Ketones Leukocytes Nitrite Labor Signs Protein Cervic Dilation Cervic Effacement Cervic Station none 25 none none neg Type Weight in lbs Pre/Post Dialysis Refused Weight 142.693629471376 BP Diastolic BP Location Tested BP Systolic BP Type 70 120 Fetus Heart Rate Present A 140 Fetus Movement Comments No bleeding, no LOF. RL pain over the weekend on R. No NVFC, gone now, passing gas, eating, neg UA. Baby active. Level 2 ok, Uterus soft, NT S=D 2 weeks for 1 hr, Rh- will need Rhogam Flowsheet Date 03/05/2023 Beth Score Blood Edema Fundus Height Fundus Units Glucose Ketones Leukocytes Nitrite Labor Signs Protein Cervic Dilation Cervic Effacement Cervic Station none 29 cm none none neg Type Weight in lbs Pre/Post Dialysis Refused Preoperative 147.820250625505 BP Diastolic BP Location Tested BP Systolic BP Type 68 L arm 108 sitting Fetus Heart Rate Present A 139 Present Fetus Movement A Yes Comments S/p Rhogam and Tdap. RTC 2 w eeks. Flowsheet Date 03/10/2023 Beth Score Blood Edema Fundus Height Fundus Units Glucose Ketones Leukocytes Nitrite Labor Signs Protein Cervic Dilation Cervic Effacement Cervic Station none Backpain Type Weight in lbs Pre/Post Dialysis Refused With clothes 149.797689008165 BP Diastolic BP Location Tested BP Systolic BP Type 60 L arm 120 sitting Fetus Heart Rate Present A Present Fetus Movement A Yes Comments Was seen in the ER and had s evere right hydronephrosis on US. Given [place]. Flowsheet Date 03/19/2023 Beth Score Blood Edema Fundus Height Fundus Units Glucose Ketones Leukocytes Nitrite Labor Signs Protein Cervic Dilation Cervic Effacement Cervic Station none none none neg Type Weight in lbs Pre/Post Dialysis Refused With clothes 149.137884583451 BP Diastolic BP Location Tested BP Systolic BP Type 68 L arm 122 sitting Fetus Heart Rate Present A 135 Fetus Movement A Yes Comments Pt was seen in the ER at [facility] and found to have severe hydronephrosis with obstruction. The soonest she was able to get into urology was then end of April. She called to see if she could get an earlier appt and was advised to go to [facility] ER if the pain was unbearable. She plans on possibly going tomorrow. UA neg for blood. She has no other complaints. Flowsheet Date 04/01/2023 Beth Score Blood Edema Fundus Height Fundus Units Glucose Ketones Leukocytes Nitrite Labor Signs Protein Cervic Dilation Cervic Effacement Cervic Station none 31 cm none Backpain 1+ Type Weight in lbs Pre/Post Dialysis Refused Weight 149.337463474365 BP Diastolic BP Location Tested BP Systolic BP Type 80 120 Fetus Heart Rate Present A 135 Present Fetus Movement A Yes Comments Will check labs and send uri ne for culture, Large blood on voided specimen. Schedule growth US. Flowsheet Date 04/16/2023 Ebth Score Blood Edema Fundus Height Fundus Units Glucose Ketones Leukocytes Nitrite Labor Signs Protein Cervic Dilation Cervic Effacement Cervic Station none 30 cm none none neg Type Weight in lbs Pre/Post Dialysis Refused With clothes 154.729415777540 BP Diastolic BP Location Tested BP Systolic BP Type 76 L arm 102 sitting Fetus Heart Rate Present A 135 Present Fetus Movement A Yes Comments Decreased FM. NST Reactive. Audible movement. Increasing H20 has improved her dizziness. She is back to work. She goes back 05/10/23 for tube exchange. Flowsheet Date 04/22/2023 Beth Score Blood Edema Fundus Height Fundus Units Glucose Ketones Leukocytes Nitrite Labor Signs Protein Cervic Dilation Cervic Effacement Cervic Station none 34 cm none none neg Type Weight in lbs Pre/Post Dialysis Refused Weight 151.275402758744 BP Diastolic BP Location Tested BP Systolic BP Type 64 102 Fetus Heart Rate Present A 125 Present Fetus Movement A Yes Comments Flowsheet Date 04/28/2023 Beth Score Blood Edema Fundus Height Fundus Units Glucose Ketones Leukocytes Nitrite Labor Signs Protein Cervic Dilation Cervic Effacement Cervic Station none none none neg Type Weight in lbs Pre/Post Dialysis Refused With clothes 154.884129007758 BP Diastolic BP Location Tested BP Systolic BP Type 70 L arm 108 sitting Fetus Heart Rate Present Fetus Movement A Yes Comments Pt was scheduled to see tamra campos [facility] today for u/s and consult regarding 37 wk IOL d/t alexandra perc neph tubes and the frequency of which they are needing to be replaced. She declined however d/t cost. Dr. Webb will discuss with [facility]. Flowsheet Date 05/04/2023 Beth Score Blood Edema Fundus Height Fundus Units Glucose Ketones Leukocytes Nitrite Labor Signs Protein Cervic Dilation Cervic Effacement Cervic Station none none Cramping neg 1cm 50% - 2 Type Weight in lbs Pre/Post Dialysis Refused Weight 157.679762736485 BP Diastolic BP Location Tested BP Systolic BP Type 78 116 Fetus Heart Rate Present A 155 Fetus Movement A Yes Comments the past few days she has no edinson more cramps which are different than her BH ctx and go on for an hour or so no pattern no vaginal bleed or LOF not currently occurring Disc BH vs uterine irritability vs PTL Flowsheet Date 05/07/2023 Beth Score Blood Edema Fundus Height Fundus Units Glucose Ketones Leukocytes Nitrite Labor Signs Protein Cervic Dilation Cervic Effacement Cervic Station none none Cramping neg 1cm 50% - 2 Type Weight in lbs Pre/Post Dialysis Refused Weight 155.943283879184 BP Diastolic BP Location Tested BP Systolic BP Type 88 130 Fetus Heart Rate Present A 135 Fetus Movement A Yes Comments Doing well. 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 GBS and labs today. Scheduled for IOL on 05/20. Started her maternity leave. Flowsheet Date 05/13/2023 Beth Score Blood Edema Fundus Height Fundus Units Glucose Ketones Leukocytes Nitrite Labor Signs Protein Cervic Dilation Cervic Effacement Cervic Station none 36 cm none none neg 3cm 80% -2 Type Weight in lbs Pre/Post Dialysis Refused With clothes 156.61459346130 BP Diastolic BP Location Tested BP Systolic BP Type 60 100 Fetus Heart Rate Present A 153 Present Fetus Movement A Yes Comments IOL @ 38 weeks per [facility]. Stephanie santoyo some contractions, was seen in triage. Reports frequent yeast infections and self treats at home with Monistat. She is scheduled for a cap trial at . Flowsheet Date 06/10/2023 Beth Score Blood Edema Fundus Height Fundus Units Glucose Ketones Leukocytes Nitrite Labor Signs Protein Cervic Dilation Cervic Effacement Cervic Station Type Weight in lbs Pre/Post Dialysis Refused Weight 143.476292925609 BP Diastolic BP Location Tested BP Systolic BP Type 74 116 Fetus Heart Rate Present Fetus Movement Comments Flowsheet Date 07/01/2023 Beth Score Blood Edema Fundus Height Fundus Units Glucose Ketones Leukocytes Nitrite Labor Signs Protein Cervic Dilation Cervic Effacement Cervic Station Type Weight in lbs Pre/Post Dialysis Refused With clothes 140.344990247421 BP Diastolic BP Location Tested BP Systolic BP Type 68 L arm 110 sitting Fetus Heart Rate Present Fetus Movement Comments Menstrual History Last Menstrual Date Menses Monthly On Bcp Conception Prior Menses Frequency Hcg Plus Date Menarche Onset Age 1008/18/2022 true false 08/18/2022 28 11 Genetic Screening And Infection History Question Response Note Patient's Age Will Be 35 Yea rs Or Older At Estimated Date of Delivery false Thalassemia (Cuban, Citizen Of [place], Mediterranean, Or Background): MCV < 80 false Neural Tube Defect (Meningom yelocele, Spina Bifida, Or Anencephaly) false Congenital Heart Defect false Down Syndrome false Duke-Sachs (eg, Gnosticism, Cajun, Mauritanian-Bastrop) f alse Graeme Disease false Sickle Cell Disease Or Trait () false Hemophilia Or Other Blood Disorders false Muscular Dystrophy false Cystic Fibrosis false Pickett's Chorea false Intellectual Disability/Autism false If Yes, Was Person Tested For Fragile X? false Other Inherited Genetic Or Chromosomal Disorder false Maternal Metabolic Disorder (eg, Type 1 Diabetes , PKU) false Patient Or Baby's Father Had A Child With Defects Not Listed Above false Recurrent Loss, Or A Stillbirth false Medications (including Suppl ements, Vitamins, Herbs, OTC Drugs), Illicit/Recreational Drugs, Alcohol false If Yes, Agent(s) And Strength/Dosage false Any Other Genetic History true fragil e x carrier Live With Someone With TB Or Exposed To TB false Patient Or Partner Has History Of Genital Herpes false Rash Or Viral Illness Since Last Menstrual Perio d false History Of STD, Gonorrhea, Chlamydia, HPV, Syphi lis false Other Infection History false Prior GBS-infected child false History of HIV false History of Hepatitis false Hemoglobinopathy Or Carrier false Recent Travel History Outside of Country false Other Structural Defect false Mental Retardation/Autism false Delivery Information Delivery Date Delivery Type Labor Anesthesia Weeks Gestation Incision Type Labor Labor Length Hrs Delivered By Post Complications Tubal Sterilization Discharge Date Comments 3 Induce d 38.1 false Praveena Webb MD 05/23/2023 Discharge Information Feeding Method Contraceptive Method Maternal HG B and HCT Levels Breast
--- OUTSIDE RECORDS SUMMARY | 2025-05-29 12:16 | XMS_ITS | Clinical Summary ---
Author Organization Healthcare Address [address] [place] [address] Care Team Providers Care Metal Machinist Name Role Phone OlsonChery anderson Savanna MOTT Primary Care Provider [phone] Allergies No known active allergies Medications ondansetron (Zofran) 4 MG tabletIndicatio ns:Nausea and Vomiting,Nausea and/or Vomiting in Take 1 tablet (4 mg) by mouth every 8 (eight) hours if needed for nausea or vomiting. Active acetaminophen (Tylenol) 325 MG tablet Take 2 tablets (650 mg total) by mouth every 6 (six) hours if needed for pain. 100 tablet 3 Active lidocaine (Lidoderm) 5 % patch Apply 1 patch topically 1 (one) time each day at the same time. Remove & discard patch within 12 hours or as directed by MD. 6 patch 3 Active polyethylene glycol (Miralax) 17 g packet Take 17 g by mouth 1 (one) time each day. 30 each 3 Active Active Problems Problem Noted Date Diagnosed Date Hydronephrosis determined by ultrasound 03/21/20 23 Family History Medical History Relation Name Comments Anxiety disorder Mother Migraines Mother Clotting disorder Other 1 Arthritis Other 2 Kidney cancer Other 3 Osteoporosis Other 4 Relation Name Status Comments Mother Other 1 Other 2 Other 3 Other 4 Social History Tobacco Use Types Packs/Day Years Used Date Smoking Tobacco: Never Smokeless Tobacco: Never Tobacco Cessation:Counseling Given: Not Answered Alcohol Use Standard Drinks/Week Comments Yes 0 (1 standard drink = 0.6 oz pure alcohol) Alcoholic Drinks/day: Occasional alcohol use PHQ-2 Answer Date Recorded Patient Health Questionnaire-2 Score 0 04/07/2023 CAGE ASSESSMENT Answer Date Recorded Cage unable to access Not on file 03/21/2023 Cage max number of drinks Not on file 2022 Cage Beverages a week Not on file 03/21/2023 Have you ever felt you should CUT down on your d rinking? 0 03/21/2023 Have you been ANNOYED by people criticizing your drinking? 0 03/21/2023 Have you felt GUILTY about your drinking? 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 0 03/21/2023 CAGE Questionnaire Score 0 023 PHQ-2A Answer Date Recorded Patient Health Questionnaire-2 Score 0 04/07/2023 Comments No Sex and Gender Information Value Date Recorded Sex Assigned at Female 04/26/2023 1:59 PM EDT Legal Sex Female 7:57 PM EDT Gender Identity Female 04/26/2023 1:59 PM EDT Sexual Orientation Straight 04/26/2023 1: 59 PM EDT Last Filed Vital Signs Vital Sign Reading Time Taken Comments Blood Pressure 101/67 06/04/2023 12:54 PM EDT Pulse 79 06/04/2023 12:54 PM EDT Temperature 36.7 C (98 F) 06/04/2023 12:54 PM EDT Respiratory Rate 14 06/04/2023 12:54 PM EDT Oxygen Saturation 94% 06/04/2023 12:54 PM EDT Inhaled Oxygen Concentration - - Weight 66.3 kg (146 lb 2.6 oz) 06/04/2023 11:15 AM EDT Height 167.6 cm (5' 6 ) 06/04/2023 11:15 AM EDT Body Mass Index 23.59 06/04/2023 11:15 AM EDT Plan of Treatment Health Maintenance Due Date Last Done Comments [facility]-HIV Screening 2001 [facility]-Hepatitis C Screening 2001 [facility]-Infant/Child/Adol SDOH Screenings 2001 [facility]- SDOH Screenings 2019 [facility]-Adult SDOH Screenings 2019 [facility]-Pap Smear 2022 [facility]-Depression Screening 04/07/2024 04/07/2023 [id number] Vaccine ( season) 2024 04/04/2021, 03/06/2021 [facility]-Influenza Vaccine (#1) 2025 [facility]-DTaP,Tdap,and Td Vaccines (9 - Td or Tdap) 03/05/2033 03/05/2023, 06/21/2018, 04/08/2012, Additional history exists [facility]-Zoster Vaccines (1 of 2) 2051 07/25/2007, 02/08/2002 [facility]-Hepatitis B Vaccines Completed 001, 2001, 2001 [facility]-Pneumococcal Vaccine: Pediatrics (0 to 5 Years) and At-Risk Patients (6 to 49 Years) Aged Out 2001, 2001, 2001 No longer eligible based on patient's age to complete this topic [facility]-HIB Vaccines Completed 05/12/2002, , 2001, Additional history exists [facility]-IPV Vaccines Completed 05/13/2006, , 2001, Additional history exists [facility]-Varicella Vaccines Completed 07/25/2007, 2001 HPV Vaccines Completed 10/22/2014, 12/17, 04/08/2012 [facility]-Hepatitis A Vaccines Completed 04/17/2021, 05/2018 [facility]-Rotavirus Vaccines Aged Out No lo nger eligible based on patient's age to [place] [address] [place] [address] [place] [address] [place] [address] AN[employer]WIL Advance Directives * Full Code (Latest Code Status on File) Date Activated Date Inactivated Comments 03/21/2023 12:42 AM 03/25/2023 2:58 PM Question Answer Comments Patient has decision-making capacity? Yes Care Teams Metal Machinist Relationship Specialty Start Date End Date Chery Olson APRN [address] [place] [address] PCP - General 03/26/23
[2025-05-31 06:10] LABS: Intrinsic Factor Abs, Serum 1.1 AU/mL (0.0-1.1)
== END 2025-05-28 23:59 | disposition home or self-care (01) ==
LOC: LAB.DROPOF 05-29 12:14
PROVIDERS: PCP Nurse Practitioner Family; Visit Provider Nurse Practitioner Family
DX: R79.89 Other specified abnormal findings of blood chemistry (principal); D50.9 Iron deficiency anemia, unspecified
CPT/HCPCS: 82607; 82728; 85025; 86340

== ENCOUNTER 2025-06-21 14:29 | Outpatient (CLI) | payer BC, SELFPAY ==
--- OUTSIDE RECORDS SUMMARY | 2025-06-21 14:31 | XMS_ITS | Clinical Summary ---
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) to steady your nerves or to get [...] [facility]-HIV Screening 2001 [facility]-Hepatitis C Screening 2001 [facility]-/Child/Adol SDOH Screenings 2001 [facility]- SDOH Screenings 2019 [facility]-Adult SDOH Screenings 2019 [facility]-Pap Smear 2022 [facility]-Depression Screening 04/07/2024 04/07/2023 [id number] Vaccine ( season) 2024 04/04/2021, 03/06/2021 [facility]-Influenza [...] [place] [address] [place] [address] [place] [address] ANTHWIL Advance Directives * Full Code (Latest Code Status on File) Date Activated Date Inactivated Comments 03/21/2023 12:42 AM 03/25/2023 2:58 PM Question Answer Comments Patient has decision-making capacity? Yes Care Teams Top Carrier Relationship Specialty Start Date End Date Chery Olson APRN [address] [place] [address] PCP - General 03/26/23
== END 2025-06-21 23:59 | disposition home or self-care (01) ==
LOC: RT 14:30
PROVIDERS: PCP Nurse Practitioner Family; Visit Provider Nurse Practitioner
DX: R42 Dizziness and giddiness (principal)
CPT/HCPCS: 93270

== ENCOUNTER 2025-08-06 08:21 | Observation (INO) | payer BC, SELFPAY ==
[2025-08-06] VITALS (7 sets, daily range): BP systolic 85–102; BP diastolic 47–67; PULSE 57–85; RESP 15–18; TEMP 36.1–36.8; O2SAT 97–100; BMI 24.2; BMI 24.3
[2025-08-06 08:52] LABS: Microscopic, Urine URINE MICROSCOPIC (MICROSCOPIC)
[2025-08-06 08:54] LABS: Hematocrit 35.4 % (37.0-47.0); Hemoglobin 12.0 g/dL (12.2-16.2); Immature Granulocytes % 0.3 %; Mean Corpuscular HGB Conc 33.9 g/dL (31.8-35.4); Mean Corpuscular Hemoglobin 29.3 pg (27.0-31.2); Mean Corpuscular Volume 86.3 fl (81-99); Nucleated Red Blood Cells % 0 %; Platelet Count 216 K/mm3 (142-424); Red Blood Count 4.10 M/mm3 (4.20-5.40); Red Cell Distribution Width-SD 39.4 fL; White Blood Count 5.8 K/mm3 (4.8-10.8)
[2025-08-06 08:57] LABS: Color,Urine YELLOW (Yellow); Glucose,Urine (UA) Negative (Negative); Ketones,Urine TRACE (Negative); Leukocyte Esterase,Urine Negative (Negative); PH,Urine 5.5 (5.0-8.5); Protein,Urine TRACE (Negative); Specific Gravity, Urine >= 1.030 (1.005-1.030); Urobilinogen,Urine 1.0 EU/dl (0.2)
--- NOTE | 2025-08-06 08:58 | CT_ITS ---
FINAL REPORT TECHNIQUE: Thin section axial images are obtained through the abdomen and pelvis after intravenous contrast. Reconstruction images were obtained from the axial data. Exam was performed using dose reduction techniques. CLINICAL HISTORY: UC- generalized abdominal pain FINDINGS: LUNG BASES: Lung bases are clear. Heart size is normal. LIVER: Homogeneous. No focal lesion. GALLBLADDER/BILIARY SYSTEM: Gallbladder is present. No gallstones. No biliary dilatation. SPLEEN: Unremarkable. PANCREAS: Unremarkable. ADRENALS: Unremarkable. KIDNEYS/URETERS/BLADDER: No hydronephrosis, renal mass, or renal stone. Unremarkable urinary bladder. GI TRACT: No small bowel obstruction or dilatation. Normal appendix. Long segment wall thickening is seen of the distal colon beginning at the mid transverse colon extending to the rectum consistent with reported history of ulcerative colitis. PELVIC ORGANS: Uterus and ovaries normal for age. LYMPH NODES/RETROPERITONEUM/MESENTERY: Mildly prominent mesenteric lymph nodes. Otherwise, no lymphadenopathy. No abdominal aortic aneurysm. ABDOMINAL WALL: Small, fat-containing umbilical hernia.. FREE FLUID: No ascites. BONES: No acute osseous abnormality. IMPRESSION: Distal colitis, likely active ulcerative colitis given patient history. Reviewed, Interpreted and Dictated by Rhona Mayberry MD Transcribed by Alida Mishra Authenticated and [facility]
--- NOTE | 2025-08-06 08:59 | HMH.EDGENADL ---
Discharge Plan Disposition Patient Disposition: Admitted Clinical Impressions Clinical Impression: Colitis Discharge ED Provider: Dante Rangel General Adult HPI General Chief complaint: Abdominal Pain Stated complaint: abd pain, V/D Time Seen by Provider: 08/06/25 08:38 Mode of Arrival: Ambulatory Source of Information: Patient Description of Symptoms (Recalled from ER Triage Doc. by RN): patient states around 530 am she began having sudden abdominal pain that she reports feels like she is cramping. 10/10 intermittent pain. vomited twice. History of Present Illness HPI narrative: This patient presents to the emergency department with suprapubic abdominal pain that began acutely this morning at 6 AM. She reports that the pain initially was crampy but it has been progressively worsening. The patient reports that she has never had abdominal surgery, she does have a history of 1 without complication. She has not attempted to eat due to the severity of the pain, when the pain began she did have a large bowel movement which did not decrease pain. The pain is located suprapubically, does not radiate, it is worse with pressure. She has no obvious skin changes. Related Data Previous Rx's ?Medication ?Instructions ?Recorded ferrous gluconate 324 mg (37.5 mg 324 mg PO BID #60 tabs 05/01/25 iron) tablet labetalol 200 mg tablet 400 mg (2 x 200 mg) PO BID 30 days 07/24/25 #120 tabs Allergies Allergy/AdvReac Type Severity Reaction Status Date / Time No Known Allergies Allergy Verified 07/24/25 15:06 [facility] Disclaimer: The information contained in this section may have been updated after the patient was seen, as this information can be updated by other users. Medical History Inappropriate sinus tachycardia POTS (postural orthostatic tachycardia syndrome) Renal colic on right side Hydronephrosis of right kidney severe hydronephrosis with proximal hydroureter RUQ abdominal pain with 27 completed weeks gestation Hordeolum of left eye Surgical History History of wisdom tooth extraction History of placement of ear tubes History of nephrostomy Family History Other No significant family history Social History (Updated 08/06/25 @ 12:52 by Jennifer Houston RN) Smoking Status: Current every day smoker alcohol intake: current current occupational status: employed Travel in the last 8 weeks?: None Have you lived/traveled outside US in past 30 days?: No Contact w/someone who lives/traveled outside US past 30 days?: No Exposure to someone with infectious disease in past 14 days?: No Do you have a fever (greater than 100.4 F or 38 C)?: No Have you tested positive for COVID-19?: No Exposed to someone with COVID-19 in past 14 days?: No Do you have a sore throat?: No Do you have a cough?: No Do you have any weakness?: No Do you have any diarrhea?: No Are you experiencing any unusual bleeding?: No Do you have any muscle aches/pain?: No Do you have any abdominal pain?: No Are you experiencing loss of taste or smell?: No Other Medical History Have you received the Flu Vaccine for this season: No Have you received the Pneumonia Vaccine: No ROS Obtained: Yes All systems reviewed & no additional complaints except as documented Physical Exam General General appearance: alert and in no apparent distress Head Head exam: atraumatic and normocephalic Eye Eye exam: Present normal appearance, PERRL and EOMI ENT ENT exam: Present normal exam and normal external ear exam Neck Neck exam: Present normal inspection, full ROM and trachea midline Chest Chest inspection: Present normal inspection and symmetric chest wall rise; Absent tenderness Respiratory Respiratory exam: Absent respiratory distress Cardiovascular Cardiovascular exam: Present regular rate, normal rhythm and other (appears warm and well perfused) Abdominal Exam Abdominal exam: Absent distention or tenderness Extremities Exam Extremities exam: Present normal inspection and full ROM Neurological Exam Neurological exam: Present alert and oriented X3 Psychiatric Psychiatric exam: Present normal affect Skin Skin exam: Present warm and dry Medical Decision Making Medical Records Medical records reviewed: Yes I reviewed the patient's medical records. Screening: Per USPSTF and CDC recommendations, given the prevalence of disease in our region, it is our hospital?s policy to screen for HIV and viral Hepatitis for all patients aged 18 and over and those with ongoing risk factors. Adriel Inquiry Pt receiving controlled substance: No Adriel was queried for this patient: No Vital Signs: 08/06/25 08:43 08/06/25 09:00 08/06/25 09:30 Temperature 97.9 F Temperature Source Oral Pulse Rate 67 58 L Pulse Rate [Right Radial] 82 Respiratory Rate 15 Blood Pressure 98/67 L 85/53 L Blood Pressure [Right Arm] 99/63 L Blood Pressure Mean 74 63 Blood Pressure Mean [Right Arm] 75 Blood Pressure Source Blood Pressure Source [Right Arm] Automatic Cuff Blood Pressure Position Blood Pressure Position [Right Arm] Supine 02 Sat by Pulse Oximetry 98 98 99 Oxygen Delivery Method Room Air 08/06/25 12:36 08/06/25 12:49 Temperature 97.9 F Temperature Source Oral Pulse Rate 85 Pulse Rate [Right Radial] Respiratory Rate 16 Blood Pressure 100/50 L Blood Pressure [Right Arm] Blood Pressure Mean Blood Pressure Mean [Right Arm] Blood Pressure Source Automatic Cuff Blood Pressure Source [Right Arm] Blood Pressure Position Sitting Blood Pressure Position [Right Arm] 02 Sat by Pulse Oximetry Oxygen Delivery Method Room Air Room Air Lab Data Lab results reviewed: Yes I reviewed the patient's lab results. Lab Results 08/06/25 08:37: Magnesium 1.8 08/06/25 08:39: WBC 5.8, RBC 4.10 L, Hgb 12.0 L, Hct 35.4 L, MCV 86.3, MCH 29.3, MCHC 33.9, RDW 12.5, Plt Count 216, MPV 10.4, Neut % (Auto) 60.9, Lymph % (Auto) 27.5, [place] % (Auto) 8.4, Eos % (Auto) 2.6, Baso % (Auto) 0.3, Neut # (Auto) 3.5, Lymph # (Auto) 1.6, [place] # (Auto) 0.5, Eos # (Auto) 0.2, Baso # (Auto) 0.0, Sodium 139, Potassium 3.9, Chloride 104, Carbon Dioxide 26, Anion Gap 12.9, BUN 9, Creatinine 0.80, Estimated Creat Clear 116, Estimated GFR 88, Est GFR ( Amer) 107, Glucose 102 H, Calcium 9.2, Total Bilirubin 1.2, AST 24, ALT 9 L, Alkaline Phosphatase 42, Total Protein 7.7, Albumin 4.7, Globulin 3.0, Albumin/Globulin Ratio 1.6, Lipase 77, Serum HCG, Qual Negative, Urine Color Yellow, Urine Appearance Clear, Urine pH 5.5, Ur Specific [place] >= 1.030, Urine Protein Trace, Urine Glucose (UA) Negative, Urine Ketones Trace, Urine Blood 1+ A, Urine Nitrate Negative, Urine Bilirubin 1+ A, Urine Urobilinogen 1.0, Ur Leukocyte Esterase Negative, Urine RBC Occasional, Urine WBC None, Ur Squamous Epith Cells Occasional, Urine Bacteria Trace, HCV Ab CK w/Rflx PCR Qn Negative, HIV Ag/Ab Combo Qual Negative 08/06/25 08:39 08/06/25 08:39 Orders (Tests/Meds): ED MEDICATIONS Generic Name Dose Route Start Last Admin Trade Name Frelaquita PRN Reason Stop Dose Admin Acetaminophen 650 mg 08/06/25 12:32 Acetaminophen 325mg Tab PO 09/05/25 12:31 Q4HP PRN Fever or Mild Pain (1-3) Hydrocodone Bitart/Acetaminophen 1 tab 08/06/25 12:32 08/06/25 15:28 Hydrocodone/Apap 5/325 Mg Tablet PO 09/05/25 12:31 1 tab Q4HP PRN Administration Mild to Moderate Pain (1-6) Morphine Sulfate 4 mg 08/06/25 12:34 Morphine 4mg/Ml Syringe IV 09/05/25 12:33 Q4HP PRN Severe Pain (7-10) Ondansetron HCl 4 mg 08/06/25 12:32 Ondansetron 4mg/2ml Vial IV 09/05/25 12:31 Q8HP PRN Nausea Polyethylene Glycol/Electrolytes 4,000 ml 08/06/25 19:00 Peg-Electrolyte Soln 4000ml Bottle PO 08/06/25 19:01 ONCE ONE Discontinued Medications Generic Name Dose Route Start Last Admin Trade Name Freq PRN Reason Stop Dose Admin Lactated Ringer's 500 mls @ 999 mls/hr 08/06/25 08:57 08/06/25 10:08 Lactated Ringer's 500ml IV 08/06/25 09:27 Infused .Q31M ONE Infusion Iopamidol 75 ml 08/06/25 09:47 08/06/25 09:47 Iopamidol-370 (76%);100ml Bottle IV 08/06/25 09:48 75 ml ONCE ONE Administration Morphine Sulfate 4 mg 08/06/25 08:57 08/06/25 09:09 Morphine 4mg/Ml Syringe IV 08/06/25 08:58 4 mg ONCE ONE Administration Ondansetron HCl 4 mg 08/06/25 08:57 08/06/25 09:09 Ondansetron 4mg/2ml Vial IV 08/06/25 08:58 4 mg ONCE ONE Administration Sodium Chloride 10 ml 08/06/25 09:47 08/06/25 09:47 Sodium Chloride 0.9% 10ml Syr (Rad Only) IV 08/06/25 09:48 10 ml ONCE ONE Administration ORDERS Category Date Time Status CT abdomen pelvis w con Stat Cat Scan 08/06/25 08:58 Completed GI consult [Consult to Gastroenterology] [CONS] Routine Cons 08/06/25 12:34 Active US transvaginal Stat Exams 08/06/25 09:23 Completed CMP [Comprehensive Metabolic Panel] Stat Lab 08/06/25 08:39 Completed Complete Blood Count Auto Diff AMLAB Lab 08/07/25 06:00 Ordered Complete Blood Count Auto Diff Stat Lab 08/06/25 08:39 Completed Comprehensive Metabolic Panel AMLAB Lab 08/07/25 06:00 Ordered HCG Qualitative, Serum Stat Lab 08/06/25 08:39 Completed HIV Combo Stat Lab 08/06/25 08:39 Completed Hepatitis C Ab Qual. W/ RFX Stat Lab 08/06/25 08:39 Completed Lactate Venous Stat Lab 08/06/25 09:03 Ordered Lipase Stat Lab 08/06/25 08:39 Completed Magnesium Routine Lab 08/06/25 08:37 Completed UA [Urinalysis and Microscopic] Stat Lab 08/06/25 08:39 Completed Medical Decision Narrative: MDM In summary, this 25-year-old female presents to the emergency department today with suprapubic abdominal pain. Initial evaluation the patient hemodynamically stable and uncomfortable. Differential diagnosis includes but is not limited to bowel obstruction, large bowel obstruction, gastroenteritis, Crohn's, ulcerative colitis, dehydration, mesenteric ischemia, pancreatitis, cholecystitis. Based on these concerns, I ordered a comprehensive laboratory and imaging workup. Patient received lactated Ringer's, Zofran, morphine for treatment. Labs personally reviewed and interpreted demonstrate mild leukocytosis, mild anemia, no major metabolic abnormalities. Ultrasound personally interpreted by me demonstrate bilateral cystic structures within the ovaries concerning for PCOS. CT imaging personally interpreted by me demonstrate significant colonic inflammation that could be concerning for ulcerative colitis or other inflammatory process. Though the patient's history is not typical for 2 with ulcerative colitis, she is in the right age range for new onset ulcerative colitis. Given the imaging findings I made the decision to consult the gastroenterology service. They reported that they felt the patient's would be appropriate for a scope whether it was inpatient or outpatient. The patient had ongoing pain and continued nausea and felt that she would had difficulty performing her ADLs while so afflicted and so I made the decision to consult the internal medicine service. After an interactive discussion, the patient was admitted to the hospital for further care and management. Critical Care Critical Care Time Critical Care Time: No
[2025-08-06 09:00] LABS: Bilirubin,Urine 1+ (Negative)
[2025-08-06 09:02] LABS: Albumin Level 4.7 g/dl (3.5-5.0); Chloride 104 mmol/L (98-107); Sodium 139 mmol/L (136-145)
[2025-08-06 09:03] LABS: Potassium 3.9 mmoL/L (3.5-5.1)
[2025-08-06 09:05] LABS: Alanine Aminotransferase 9 U/L (12-78); Anion Gap 12.9 mEq/L (5-15); Aspartate Amino Transferase 24 U/L (14-36); Blood Urea Nitrogen 9 mg/dl (7-17); Carbon Dioxide 26 mmol/L (22.0-30.0); Creatinine Clearance Estimated 116 mL/min (50-200); Creatinine,Serum 0.80 mg/dl (0.52-1.04); Estimated Glomerular Filt Rate 88 ml/min (>60); GFR (African American) 107 ML/MIN (>60)
[2025-08-06 09:06] LABS: Albumin/Globulin Ratio 1.6 (1.1-1.8); Alkaline Phosphatase 42 U/L (38-126); Bilirubin,Total 1.2 mg/dl (0.2-1.3); Calcium 9.2 mg/dl (8.4-10.2); Globulin 3.0 g/dL (1.3-3.2); Glucose 102 mg/dl (74-100); Total Protein,Serum 7.7 g/dl (6.3-8.2)
[2025-08-06] MEDS: RINGERS SOLUTION,LACTATED 500 ML 999 ML IV (09:08)
[2025-08-06] MEDS: MORPHINE 4MG/ML SYRINGE 4 MG IV ×2 (09:09→18:12)
[2025-08-06] MEDS: ONDANSETRON 4MG/2ML VIAL 4 MG IV ×2 (09:09→20:04)
--- OUTSIDE RECORDS SUMMARY | 2025-08-06 09:14 | XMS_ITS | Clinical Summary ---
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 Yes Care Teams Hydrogen Cell Tender Relationship Specialty Start Date End Date Chery Olson APRN [address] [place] [address] PCP - General 03/26/23
[2025-08-06 09:22] LABS: Bacteria,Urine Trace /lpf; RBC,Urine Occasional #/hpf (0-3); Squamous Epithelial Cell,Urine Occasional #/hpf (0-5)
--- NOTE | 2025-08-06 09:23 | US_ITS ---
PROCEDURE INFORMATION: Exam: US Pelvis, Transvaginal, Non-Obstetric Exam date and time: 08/06/2025 9:40 AM Age: 25 years old Clinical indication: Pelvic pain; Additional info: Suprapubic abdominal pain TECHNIQUE: Imaging protocol: Real-time transvaginal pelvic (non-obstetric) ultrasound with image documentation. Transvaginal imaging was used for better evaluation of the endometrium, adnexa, and/or cervix. COMPARISON: US OB TRANSVAGINAL 09/29/2022 11:31 AM FINDINGS: Uterus: The uterus measures 8.7 x 3.6 x 5 cm. The endometrium is normal measuring 3.5 mm. Right ovary/adnexa: The right ovary is normal measuring 4 x 2 x 1.9 cm. Normal flow in the right ovary. Multiple follicles in the right ovary can be seen with PCOS. Left ovary/adnexa: The left ovary is normal measuring 3.8 x 2 x 1.9 cm. Normal flow in the left ovary. Multiple follicles in the left ovary can be seen with PCOS. Urinary bladder: Urinary bladder is limited. Intraperitoneal space: No free fluid. IMPRESSION: Multiple follicles in both ovaries can be seen with PCOS. Physical examination and laboratory correlation is required for confirmation.
[2025-08-06 09:34] LABS: HCG Qualitative, Serum Negative (Negative)
[2025-08-06 09:35] LABS: Lipase 77 U/L (23-300)
[2025-08-06] MEDS: SODIUM CHLORIDE 0.9% 10ML SYR (RAD ONLY) 10 ML IV (09:47)
[2025-08-06] MEDS: IOPAMIDOL-370 (76%);100ML BOTTLE 75 ML IV (09:47)
[2025-08-06 10:01] LABS: Hepatitis C Ab Qual. W/ RFX NEGATIVE (Negative)
--- NOTE | 2025-08-06 12:00 | PC.NURSE ---
Called [facility] for Dr Rangel to speak with the radiologist about results
--- NOTE | 2025-08-06 12:26 | PC.NURSE ---
waiting for hospitalist to return call
--- NOTE | 2025-08-06 12:32 | PC.NURSE ---
TOPOGRAPHICAL FIELD ASSISTANT NOTIFIED OF ADMISSION
--- NOTE | 2025-08-06 12:39 | HMH.PHAINT1 ---
Pharmacy Intervention Comments: HOME MEDICATION LIST VERIFIED USING LIST FROM OUTPATIENT PHARMACY
--- NOTE | 2025-08-06 12:45 | P.HP_ITS ---
History of Present Illness *Admission Date: 08/06/25 *Reason for visit:: Abdominal pain *History of present illness: Ms. Espinoza is a 25-year-old female who presented to the emergency department today with complaints of sudden abdominal pain mostly in her lower abdomen. Rating the pain at 10/10. She does state that she is also having nausea and has had 2 episodes of vomiting. She has a primary medical history of POTS, iron deficiency anemia, and tachycardia. Patient states that the pain started out as cramping but has progressively gotten worse. She denies abdominal surgeries or GI issues in the past. She has had 1 uncomplicated . She states she had 1 large bowel movement this morning but the pain did not improve. Abdomen/pelvis CT obtained in the ED was significant distal colon wall thickening beginning at the mid transverse colon and extending to the rectum, consistent with colitis (possibly ulcerative colitis) and transvaginal ultrasound that showed polycystic ovarian syndrome. GI was consulted from the emergency department who suggested admission for pain control and colonoscopy tomorrow. Patient continued to have intermittent lower abdominal in the emergency department as well. [facility] Disclaimer: The information contained in this section may have been updated after the patient was seen, as this information can be updated by other users. Medical History Inappropriate sinus tachycardia POTS (postural orthostatic tachycardia syndrome) Renal colic on right side Hydronephrosis of right kidney severe hydronephrosis with proximal hydroureter RUQ abdominal pain with 27 completed weeks gestation Hordeolum of left eye Surgical History History of wisdom tooth extraction History of placement of ear tubes History of nephrostomy Family History Other No significant family history Social History (Updated 08/06/25 @ 12:52 by Jennifer Houston RN) Smoking Status: Current every day smoker alcohol intake: current current occupational status: employed Travel in the last 8 weeks?: None Other Medical History Have you received the Flu Vaccine for this season: No Have you received the Pneumonia Vaccine: No Review of Systems Constitutional Constitutional: Denies chills, Denies fever(s) and Denies weakness ENT Ears, Nose, Mouth, and Throat: Denies nasal congestion, Denies sinus pain and Denies sore throat *Cardiovascular Cardiovascular: Denies chest pain, Denies dyspnea and Denies edema *Respiratory Respiratory: Denies cough and Denies dyspnea *Gastrointestinal Gastrointestinal: Reports abdominal pain, Denies coffee ground emesis, Denies constipation, Reports cramping, Reports diarrhea and Reports nausea *Genitourinary Genitourinary: Denies difficulty voiding and Denies dysuria *Musculoskeletal Musculoskeletal: Denies myalgias *Neurologic Neurologic: Denies weakness Meds Home Medications and Allergies Home Medications ?Medication ?Instructions ?Recorded ?Confirmed ?Type ferrous gluconate 324 mg (37.5 mg 324 mg PO BID #60 ta bs 05/01/25 08/06/25 Rx iron) tablet labetalol 200 mg tablet 400 mg (2 x 200 mg) PO BID 3 0 days 07/24/25 08/06/25 Rx #120 tabs New Prescriptions to Start Prescriptions: Allergies Allergy/AdvReac Type Severity Reaction Status Date / Time No Known Allergies Allergy Verified 07/24/25 15:06 Exam Data for Last 24 hours Vital signs and Labs for Last 24 Hours: Temp Pulse Resp BP Pulse Ox O2 Del Method 97.9 F 58 L 15 85/53 L 99 Room Air 08/06/25 08:43 08/06/25 09:30 08/06/25 08:43 08/06/25 09:30 08/06/25 09:30 08/06/25 08:43 Laboratory Results - last 24 hr 08/06/25 08:39: WBC 5.8, RBC 4.10 L, Hgb 12.0 L, Hct 35.4 L, MCV 86.3, MCH 29.3, MCHC 33.9, RDW 12.5, Plt Count 216, MPV 10.4, Neut % (Auto) 60.9, Lymph % (Auto) 27.5, [place] % (Auto) 8.4, Eos % (Auto) 2.6, Baso % (Auto) 0.3, Neut # (Auto) 3.5, Lymph # (Auto) 1.6, [place] # (Auto) 0.5, Eos # (Auto) 0.2, Baso # (Auto) 0.0, Sodium 139, Potassium 3.9, Chloride 104, Carbon Dioxide 26, Anion Gap 12.9, BUN 9, Creatinine 0.80, Estimated Creat Clear 116, Estimated GFR 88, Est GFR ( Amer) 107, Glucose 102 H, Calcium 9.2, Total Bilirubin 1.2, AST 24, ALT 9 L, Alkaline Phosphatase 42, Total Protein 7.7, Albumin 4.7, Globulin 3.0, Albumin/Globulin Ratio 1.6, Lipase 77, Serum HCG, Qual Negative, Urine Color Yellow, Urine Appearance Clear, Urine pH 5.5, Ur Specific [place] >= 1.030, Urine Protein Trace, Urine Glucose (UA) Negative, Urine Ketones Trace, Urine Blood 1+ A, Urine Nitrate Negative, Urine Bilirubin 1+ A, Urine Urobilinogen 1.0, Ur Leukocyte Esterase Negative, Urine RBC Occasional, Urine WBC None, Ur Squamous Epith Cells Occasional, Urine Bacteria Trace, HCV Ab CK w/Rflx PCR Qn Negative, HIV Ag/Ab Combo Qual Negative I & O for Last 24 hours: Intake & Output 08/03/25 08/04/25 08/05/25 08/06/25 23:59 23:59 23:59 23:59 Intake Total 500 / 500 Balance 500 / 500 Weight 68.039 kg Constitutional Constitutional: no acute distress, average body habitus and cooperative *Routine HEENT Exam Head: Present normocephalic Eye: Present EOMI ENT: Present mucous membranes moist *Routine Neck Exam Neck: Present supple and full ROM; Absent JVD *Routine Respiratory Exam Respiratory: Present CTA bilaterally, able to speak in complete sentences and symmetric chest movement; Absent wheezes or crackles *Routine Cardiovascular Exam Cardiovascular: Present RRR, Normal S1 and Normal S2; Absent murmur *Routine Abdominal Exam Abdominal: Present soft; Absent tenderness, distended or firm Comments: Hyperactive bowel sounds *Routine Rectal Exam Rectal:: deferred *Routine Genitalia Exam Genitalia:: deferred *Routine Extremities Exam Extremities: Present full ROM and normal capillary refill; Absent edema *Routine Skin Exam Skin: Present intact and dry; Absent rash *Routine Neurological Exam Neurological: Present alert, oriented X3, vision grossly intact, hearing grossly intact and normal speech Routine Psychiatric Exam Psychiatric: Present normal affect Assessment and Plan *Assessment and plan (1) Colitis: Status: Acute Category: Medical Code(s): K52.9 - Noninfective gastroenteritis and colitis, unspecified (2) Intractable abdominal pain: Status: Acute Category: Medical Code(s): R10.9 - Unspecified abdominal pain (3) POTS (postural orthostatic tachycardia syndrome): Status: Acute Category: Medical Code(s): G90.A - Postural orthostatic tachycardia syndrome [POTS] (4) Tachycardia: Status: Acute Category: Medical Code(s): R00.0 - Tachycardia, unspecified (5) Iron deficiency anemia: Status: Acute Category: Medical Code(s): D50.9 - Iron deficiency anemia, unspecified Plan Ms. Espinoza is a 25-year-old female who presented to the emergency department today with complaints of sudden abdominal pain mostly in her lower abdomen. Rating the pain at 10/10. She does state that she is also having nausea and has had 2 episodes of vomiting. She has a primary medical history of POTS, iron deficiency anemia, and tachycardia. Patient states that the pain started out as cramping but has progressively gotten worse. She denies abdominal surgeries or GI issues in the past. She has had 1 uncomplicated . She states she had 1 large bowel movement this morning but the pain did not improve. Abdomen/pelvis CT obtained in the ED was significant distal colon wall thickening beginning at the mid transverse colon and extending to the rectum, consistent with colitis (possibly ulcerative colitis) and transvaginal ultrasound that showed polycystic ovarian syndrome. GI was consulted from the emergency department who suggested admission for pain control and colonoscopy tomorrow. Patient continued to have intermittent lower abdominal in the emergency department as well. The ER physician consulted hospital medicine for admission, I agreed to accept the patient. Plan of care is as follows: #Colitis #Intractable pain ? Assessment of patient reveals no abdominal tenderness to palpation. She does complain of mild to moderate lower abdomen pain. She states that she had a very large bowel movement that was a type on the [place] stool scale. She states there were no obvious signs of blood in her stool, but she does have hemorrhoids and does have occasional bright red bleeding per rectum. ? I personally reviewed patient's abdomen/pelvis CT which showed moderate wall thickening of the distal colon and rectum. Consistent with colitis. ? Patient denies fever, chills, chest pain, vomiting. ? Lab work stable, hemoglobin 12.0, no electrolyte abnormalities noted?sodium 139, potassium 3.9. Kidney function within normal limits BUN 9, creatinine 0.80. Magnesium 1.8. ? GI consulted for further recommendations. ? Patient has Tolono 5/325 mg every 6 hours for moderate pain and morphine 4 mg every 4 hours for severe pain. Monitoring for toxicity. #POTS #Tachycardia ? Patient has history of tachycardia, heart rate has been within normal limits currently 62. Patient was recently seen by [facility] cardiology and started on labetalol 200 mg twice daily for better heart rate control. Blood pressure is low 90/47, patient states that she typically does run on the lower side. Will hold labetalol at this time. #Iron deficient anemia ? Will hold iron supplement at this time due to possible scope tomorrow. Patient hemoglobin stable at 12.0. Full code N.p.o. Ambulate as tolerated VTE?IPC's
[2025-08-06 12:50] LABS: Magnesium 1.8 mg/dl (1.6-2.3)
--- NOTE | 2025-08-06 13:59 | EXP.GE.CONS ---
History of Present Illness *Admission Date: 08/06/25 *Reason for visit:: Acute colitis *History of present illness: Ms. Espinoza is a 25-year-old female who is admitted for intractable acute abdominal pain. The patient does state that she was awakened at 5:30 AM this morning with acute sharp lower abdominal pain/pelvic pain. She rated this on a scale 10 out of 10. She reports no nausea but had 2 episodes of vomiting. She does have a history of POTS and history of iron deficiency anemia. The patient did have a CT scan in the ED that showed thickening in the mid transverse colon extending to the rectum consistent with acute colitis. She does not have a history of ulcerative colitis. The patient reports no diarrhea, rectal bleeding or mucus with her bowel movements. She does state that she normally has a bowel movement 2 or 3 times weekly and sometimes has incomplete defecation. She reports no recent weight loss or family history of colitis or Crohn's disease. Lab work in the ED showed hemoglobin 12.0 and hematocrit 35.4 (unchanged) with white blood cell count 5.8. The patient's chemistries including liver and pancreatic chemistries were essentially normal. Her beta-hCG was normal. [facility] Disclaimer: The information contained in this section may have been updated after the patient was seen, as this information can be updated by other users. Medical History Inappropriate sinus tachycardia POTS (postural orthostatic tachycardia syndrome) Renal colic on right side Hydronephrosis of right kidney severe hydronephrosis with proximal hydroureter RUQ abdominal pain with 27 completed weeks gestation Hordeolum of left eye Surgical History History of wisdom tooth extraction History of placement of ear tubes History of nephrostomy Family History Other No significant family history Social History (Updated 08/06/25 @ 12:52 by Jennifer Houston RN) Smoking Status: Current every day smoker alcohol intake: current current occupational status: employed Travel in the last 8 weeks?: None Have you lived/traveled outside US in past 30 days?: No Contact w/someone who lives/traveled outside US past 30 days?: No Exposure to someone with infectious disease in past 14 days?: No Do you have a fever (greater than 100.4 F or 38 C)?: No Have you tested positive for COVID-19?: No Exposed to someone with COVID-19 in past 14 days?: No Do you have a sore throat?: No Do you have a cough?: No Do you have any weakness?: No Do you have any diarrhea?: No Are you experiencing any unusual bleeding?: No Do you have any muscle aches/pain?: No Do you have any abdominal pain?: No Are you experiencing loss of taste or smell?: No Review of Systems Constitutional Constitutional: Denies weakness *Neurologic Neurologic: Denies weakness Meds Home Medications and Allergies Home Medications ?Medication ?Instructions ?Recorded ?Confirmed ?Type ferrous gluconate 324 mg (37.5 mg 324 mg PO BID #60 tabs 05/01/25 08/06/25 Rx iron) tablet labetalol 200 mg tablet 400 mg (2 x 200 mg) PO BID 30 days 07/24/25 08/06/25 Rx #120 tabs New Prescriptions to Start Prescriptions: Allergies Allergy/AdvReac Type Severity Reaction Status Date / Time No Known Allergies Allergy Verified 07/24/25 15:06 Exam (Inpt) Vital signs and Labs for Last 24 Hours: Temp Pulse Resp BP Pulse Ox O2 Del Method 97.7 F 62 18 90/47 L 99 Room Air 08/06/25 13:01 08/06/25 13:01 08/06/25 13:01 08/06/25 13:01 08/06/25 13:01 08/06/25 13:01 Laboratory Results - last 24 hr 08/06/25 08:37: Magnesium 1.8 08/06/25 08:39: WBC 5.8, RBC 4.10 L, Hgb 12.0 L, Hct 35.4 L, MCV 86.3, MCH 29.3, MCHC 33.9, RDW 12.5, Plt Count 216, MPV 10.4, Neut % (Auto) 60.9, Lymph % (Auto) 27.5, [place] % (Auto) 8.4, Eos % (Auto) 2.6, Baso % (Auto) 0.3, Neut # (Auto) 3.5, Lymph # (Auto) 1.6, [place] # (Auto) 0.5, Eos # (Auto) 0.2, Baso # (Auto) 0.0, Sodium 139, Potassium 3.9, Chloride 104, Carbon Dioxide 26, Anion Gap 12.9, BUN 9, Creatinine 0.80, Estimated Creat Clear 116, Estimated GFR 88, Est GFR ( Amer) 107, Glucose 102 H, Calcium 9.2, Total Bilirubin 1.2, AST 24, ALT 9 L, Alkaline Phosphatase 42, Total Protein 7.7, Albumin 4.7, Globulin 3.0, Albumin/Globulin Ratio 1.6, Lipase 77, Serum HCG, Qual Negative, Urine Color Yellow, Urine Appearance Clear, Urine pH 5.5, Ur Specific [place] >= 1.030, Urine Protein Trace, Urine Glucose (UA) Negative, Urine Ketones Trace, Urine Blood 1+ A, Urine Nitrate Negative, Urine Bilirubin 1+ A, Urine Urobilinogen 1.0, Ur Leukocyte Esterase Negative, Urine RBC Occasional, Urine WBC None, Ur Squamous Epith Cells Occasional, Urine Bacteria Trace, HCV Ab CK w/Rflx PCR Qn Negative, HIV Ag/Ab Combo Qual Negative I & O for Labs for Last 24 Hours: Intake & Output 08/03/25 08/04/25 08/05/25 08/06/25 23:59 23:59 23:59 23:59 Intake Total 500 / 500 Balance 500 / 500 Weight 151 lb 8 oz Comments:: Moderate tenderness to deeper palpation in the lower quadrants, no rebound or guarding, no masses Results Labs 08/06/25 08:39 08/06/25 08:39 Labs: Laboratory Results - last 24 hr 08/06/25 08:37: Magnesium 1.8 08/06/25 08:39: WBC 5.8, RBC 4.10 L, Hgb 12.0 L, Hct 35.4 L, MCV 86.3, MCH 29.3, MCHC 33.9, RDW 12.5, Plt Count 216, MPV 10.4, Neut % (Auto) 60.9, Lymph % (Auto) 27.5, [place] % (Auto) 8.4, Eos % (Auto) 2.6, Baso % (Auto) 0.3, Neut # (Auto) 3.5, Lymph # (Auto) 1.6, [place] # (Auto) 0.5, Eos # (Auto) 0.2, Baso # (Auto) 0.0, Sodium 139, Potassium 3.9, Chloride 104, Carbon Dioxide 26, Anion Gap 12.9, BUN 9, Creatinine 0.80, Estimated Creat Clear 116, Estimated GFR 88, Est GFR ( Amer) 107, Glucose 102 H, Calcium 9.2, Total Bilirubin 1.2, AST 24, ALT 9 L, Alkaline Phosphatase 42, Total Protein 7.7, Albumin 4.7, Globulin 3.0, Albumin/Globulin Ratio 1.6, Lipase 77, Serum HCG, Qual Negative, Urine Color Yellow, Urine Appearance Clear, Urine pH 5.5, Ur Specific [place] >= 1.030, Urine Protein Trace, Urine Glucose (UA) Negative, Urine Ketones Trace, Urine Blood 1+ A, Urine Nitrate Negative, Urine Bilirubin 1+ A, Urine Urobilinogen 1.0, Ur Leukocyte Esterase Negative, Urine RBC Occasional, Urine WBC None, Ur Squamous Epith Cells Occasional, Urine Bacteria Trace, HCV Ab CK w/Rflx PCR Qn Negative, HIV Ag/Ab Combo Qual Negative Assessment and Plan *Assessment and plan (1) Intractable abdominal pain: Status: Acute Category: Medical Code(s): R10.9 - Unspecified abdominal pain (2) Colitis: Status: Acute Category: Medical Code(s): K52.9 - Noninfective gastroenteritis and colitis, unspecified (3) Lower abdominal pain: Status: Acute Category: Medical Code(s): R10.30 - Lower abdominal pain, unspecified (4) Vomiting: Status: Acute Category: Medical Code(s): R11.10 - Vomiting, unspecified Plan 1. Acute lower abdominal pain (awakening the patient from sleep). She has not had this previously. Her CAT scan showed long segment thickening of the colonic wall from the mid transverse extending to the rectum. The patient does not have any clinical evidence of colitis (no diarrhea, rectal bleeding, etc.) and has never had a history of colitis. There was no free fluid. I am going to recommend that we do colonoscopy tomorrow to assess further.
[2025-08-06] MEDS: HYDROCODONE/APAP 5/325 MG TABLET 1 TAB PO ×2 (15:28→20:39)
--- NOTE | 2025-08-06 18:35 | PC.NURSE ---
Pt is A&Ox4. Vital signs stable tolerating room air. Pt NPO at midnight for a colonoscopy in the morning. Half of bowel prep to be started at 1900 tonight. Pt complains of abdominal pain. PRN pain medication given per MAR. Pt resting comfortably in bed with no further needs voiced at this time. Call light within reach.
[2025-08-06] MEDS: PEG-ELECTROLYTE SOLN 4000ML BOTTLE 4000 ML PO (18:54)
[2025-08-06 21:18] LABS: Adenovirus F 40/41, stool Not Detected (NotDetected); Clostridium Difficile A/B, PCR Not Detected (NotDetected); Cyclospora Cayetanesis Not Detected (NotDetected); Plesimonas Shigalloides, PCR Not Detected (NotDetected); Salmonella, PCR Not Detected (NotDetected); Shiga-like toxin E coli Not Detected (NotDetected); Shigella Enterovasive E coli Not Detected (NotDetected); Vibrio, PCR Not Detected (NotDetected); Yersinia Entercolitica, PCR Not Detected (NotDetected)
[2025-08-06] MEDS: METOCLOPRAMIDE HCL 10MG/2ML VIAL 10 MG IVP (21:46)
[2025-08-06 22:20] LABS: C-Reactive Protein 0.4 mg/L (0-4)
[2025-08-06] MEDS: PROMETHAZINE HCL 25MG/ML 1ML VIAL 25 MG IV (22:48)
[2025-08-06] MEDS: LACTATED RINGERS 1000ML 1,000 ML 125 ML IV (22:51)
[2025-08-06] MEDS: KETOROLAC 30MG/ML VIAL 30 MG IV (23:44)
[2025-08-07 04:00] VITALS: BP 104/65; PULSE 72; RESP 16; TEMP 36.7; O2SAT 97; BMI 27.9
[2025-08-07] MEDS: ONDANSETRON 4MG/2ML VIAL 4 MG IV (05:13)
[2025-08-07] MEDS: HYDROCODONE/APAP 5/325 MG TABLET 1 TAB PO (05:13)
[2025-08-07] MEDS: LEVOFLOXACIN/D5W 750 MG/150 ML 750 MG/150 ML PIGGYBACK 100 MG IV (05:14)
--- NOTE | 2025-08-07 06:00 | PC.NURSE ---
Pt A&OX4 and has tolerated room air. Pt has complained of nausea and abdominal pain multiple times throughout the night and has been medicated per MAR. Pt has vomited multiple times after attempting to drink the bowel prep. Pt educated on the need to drink before colonoscopy. Pt attempted but continued to feel sick. She stated that she don't think she could drink any more and don't think that she wants to go through with the colonoscopy anymore. Hospitalist notified. No currently resting in bed with call light within reach.
[2025-08-07 06:10] LABS: Hematocrit 28.9 % (37.0-47.0); Immature Granulocytes % 0 %; Mean Corpuscular HGB Conc 33.6 g/dL (31.8-35.4); Mean Corpuscular Hemoglobin 29.1 pg (27.0-31.2); Mean Corpuscular Volume 86.8 fl (81-99); Nucleated Red Blood Cells % 0 %; Platelet Count 166 K/mm3 (142-424); Red Blood Count 3.33 M/mm3 (4.20-5.40); Red Cell Distribution Width-SD 39.7 fL; White Blood Count 4.2 K/mm3 (4.8-10.8)
[2025-08-07 06:20] LABS: Hemoglobin 9.5 g/dL (12.2-16.2)
[2025-08-07 06:24] LABS: Albumin Level 3.7 g/dl (3.5-5.0); Chloride 103 mmol/L (98-107)
[2025-08-07 06:25] LABS: Potassium 3.5 mmoL/L (3.5-5.1); Sodium 137 mmol/L (136-145)
[2025-08-07 06:27] LABS: Alanine Aminotransferase 8 U/L (12-78); Anion Gap 11.5 mEq/L (5-15); Aspartate Amino Transferase 19 U/L (14-36); Blood Urea Nitrogen 9 mg/dl (7-17); Carbon Dioxide 26 mmol/L (22.0-30.0); Creatinine Clearance Estimated 135 mL/min (50-200); Creatinine,Serum 0.80 mg/dl (0.52-1.04); Estimated Glomerular Filt Rate 88 ml/min (>60); GFR (African American) 107 ML/MIN (>60)
[2025-08-07 06:28] LABS: Albumin/Globulin Ratio 1.6 (1.1-1.8); Alkaline Phosphatase 37 U/L (38-126); Bilirubin,Total 1.3 mg/dl (0.2-1.3); Calcium 8.3 mg/dl (8.4-10.2); Globulin 2.3 g/dL (1.3-3.2); Glucose 86 mg/dl (74-100); Total Protein,Serum 6.0 g/dl (6.3-8.2)
[2025-08-07 08:00] VITALS: BP 106/57; PULSE 82; RESP 18; TEMP 36.7; O2SAT 98
--- NOTE | 2025-08-07 08:01 | P.PN_ITS ---
Subjective *Date: 08/07/25 *Time: 08:01 Interval history: Patient could not tolerate bowel preparation despite being given Zofran and Phenergan. She drank one third of the prep but also had emesis of most of what was consumed. The prep was a failure. She did have some bowel movements and had pain prior to bowel evacuation but the bowel evacuation itself improved the abdominal pain. Her abdominal pain is improved. Exam Data for Last 24 hours Vital signs and Labs for Last 24 Hours: Temp Pulse Resp BP Pulse Ox O2 Del Method 98.1 F 72 16 104/65 L 97 Room Air 08/07/25 04:00 08/07/25 04:00 08/07/25 04:00 08/07/25 04:00 08/07/25 04:00 08/07/25 05:00 Laboratory Results - last 24 hr 08/06/25 03:51: C-Reactive Protein 0.4 08/06/25 08:37: Magnesium 1.8 08/06/25 08:39: WBC 5.8, RBC 4.10 L, Hgb 12.0 L, Hct 35.4 L, MCV 86.3, MCH 29.3, MCHC 33.9, RDW 12.5, Plt Count 216, MPV 10.4, Neut % (Auto) 60.9, Lymph % (Auto) 27.5, [place] % (Auto) 8.4, Eos % (Auto) 2.6, Baso % (Auto) 0.3, Neut # (Auto) 3.5, Lymph # (Auto) 1.6, [place] # (Auto) 0.5, Eos # (Auto) 0.2, Baso # (Auto) 0.0, Sodium 139, Potassium 3.9, Chloride 104, Carbon Dioxide 26, Anion Gap 12.9, BUN 9, Creatinine 0.80, Estimated Creat Clear 116, Estimated GFR 88, Est GFR ( Amer) 107, Glucose 102 H, Calcium 9.2, Total Bilirubin 1.2, AST 24, ALT 9 L, Alkaline Phosphatase 42, Total Protein 7.7, Albumin 4.7, Globulin 3.0, Albumin/Globulin Ratio 1.6, Lipase 77, Serum HCG, Qual Negative, Urine Color Yellow, Urine Appearance Clear, Urine pH 5.5, Ur Specific [place] >= 1.030, Urine Protein Trace, Urine Glucose (UA) Negative, Urine Ketones Trace, Urine Blood 1+ A, Urine Nitrate Negative, Urine Bilirubin 1+ A, Urine Urobilinogen 1.0, Ur Leukocyte Esterase Negative, Urine RBC Occasional, Urine WBC None, Ur Squamous Epith Cells Occasional, Urine Bacteria Trace, HCV Ab CK w/Rflx PCR Qn Negative, HIV Ag/Ab Combo Qual Negative 08/06/25 21:12: Stl C. cayetanensis PCR Not detected, Stool Rotavirus (PCR) Not detected, Stl Adenov F 40/41 PCR Not detected, Stool Astrovirus (PCR) Not detected, Stool Campylobacter PCR Not detected, Stl C.difficile Tox PCR Not detected, Stool Cryptosporidium PCR Not detected, Stl E.coli Shiga Tox PCR Not detected, Stool E coli O157 PCR Not detected, Stl Enterotoxigenic E PCR Not detected, Stool EPEC (PCR) Detected A, Stool EAEC (PCR) Not detected, Stl E. histolytica PCR Not detected, Stool Giardia Lamblia PCR Not detected, Stool Salmonella PCR Not detected, Stool Sapovirus (PCR) Not detected, Stl P. shigelloides PCR Not detected, Stl Shigella/EIEC PCR Not detected, St Y.enterocolitica PCR Not detected, Stool Vibrio (PCR) Not detected, Stl Vibrio cholerae PCR Not detected, Stl Norovirus GI/GII PCR Not detected 08/07/25 05:29: WBC 4.2 L D, RBC 3.33 L, Hgb 9.5 L D, Hct 28.9 L, MCV 86.8, MCH 29.1, MCHC 33.6, RDW 12.5, Plt Count 166, MPV 10.5 H, Neut % (Auto) 41.8, Lymph % (Auto) 42.6, [place] % (Auto) 12.0 H, Eos % (Auto) 2.9, Baso % (Auto) 0.7, Neut # (Auto) 1.8, Lymph # (Auto) 1.8, [place] # (Auto) 0.5, Eos # (Auto) 0.1, Baso # (Auto) 0.0, ESR 15, Sodium 137, Potassium 3.5, Chloride 103, Carbon Dioxide 26, Anion Gap 11.5, BUN 9, Creatinine 0.80, Estimated Creat Clear 135, Estimated GFR 88, Est GFR ( Amer) 107, Glucose 86, Calcium 8.3 L, Total Bilirubin 1.3, AST 19, ALT 8 L, Alkaline Phosphatase 37 L, Total Protein 6.0 L, Albumin 3.7 D, Globulin 2.3, Albumin/Globulin Ratio 1.6 I & O for Last 24 hours: Intake & Output 08/04/25 08/05/25 08/06/25 08/07/25 23:59 23:59 23:59 23:59 Intake Total 1020 / 1520 750 / 750 Output Total 0 / 0 Balance 1020 / 1520 750 / 750 Weight 151 lb 8 oz 174 lb 1 oz *Routine Abdominal Exam Comments: Soft, very mild gaseous distention in the lower quadrants with mild tenderness, benign abdomen Assessment and Plan *Assessment and plan (1) Lower abdominal pain: Status: Acute Category: Medical Code(s): R10.30 - Lower abdominal pain, unspecified (2) Intractable abdominal pain: Status: Acute Category: Medical Code(s): R10.9 - Unspecified abdominal pain (3) Vomiting: Status: Acute Category: Medical Code(s): R11.10 - Vomiting, unspecified (4) Colitis: Status: Acute Category: Medical Code(s): K52.9 - Noninfective gastroenteritis and colitis, unspecified Plan 1. Intractable lower abdominal pain. The patient's abdominal pain is clearly improved. The bowel preparation was a failure. I do feel that she can go home without undergoing colonoscopy. I am not certain that we could do any better if this was outpatient and she would need antiemetics before the prep. Perhaps the Sutab tablet bowel preparation with water would be more palatable but the rate o f nausea and vomiting with this prep is equal to the others. If there was a strong indication as an inpatient, I would recommend NG tube bowel preparation but this is not the case. I am not convinced the patient has colitis especially with no typical clinical symptoms of diarrhea, rectal bleeding or mucus. I do feel that this pain may be more functional and related obstipation. She is clearly improved with bowel evacuation. I would recommend that she begin a fiber bowel regimen as an outpatient (combined MiraLAX plus Citrucel mixed together every morning).
[2025-08-07] MEDS: LACTATED RINGERS 1000ML 1,000 ML 125 ML IV (09:03)
--- NOTE | 2025-08-07 10:11 | P.DS_ITS ---
<Statement entered by Og Lopez MD - 08/08/25 09:13> Personally evaluated the patient and agree with plan of care as outlined by the [employer]. General Admission date:: 08/06/25 Discharge date: 08/07/25 HPI HPI HPI: Ms. Espinoza is a 25-year-old female who presented to the emergency department with complaints of sudden abdominal pain mostly in her lower abdomen. Rating the pain at 10/10. She does state that she is also having nausea and has had 2 episodes of vomiting. She has a primary medical history of POTS, iron deficiency anemia, and tachycardia. Patient states that the pain started out as cramping but has progressively gotten worse. She denies abdominal surgeries or GI issues in the past. She has had 1 uncomplicated . She states she had 1 large bowel movement this morning but the pain did not improve. Abdomen/pelvis CT obtained in the ED was significant distal colon wall thickening beginning at the mid transverse colon and extending to the rectum, consistent with colitis (possibly ulcerative colitis) and transvaginal ultrasound that showed polycystic ovarian syndrome. GI was consulted from the emergency department who suggested admission for pain control and colonoscopy tomorrow. Patient continued to have intermittent lower abdominal in the emergency department as well. Hospital Course Hospital Course Hospital Course: The ER physician consulted hospital medicine for admission, I agreed to accept the patient. Plan of care is as follows: #Colitis due to enteropathic E. coli #Intractable pain, resolved ?Patient was unable to tolerate bowel prep for colonoscopy today. Diarrhea panel was ordered and came back positive for EPEC. Patient was given 1 dose Levaquin 750 mg IV. IV fluids started, LR 125 mL/H for hydration. Patient feels well this morning, denies abdominal pain. Slightly tender to palpation of lower abdomen. Patient states she is no longer having bowel movements. She was able to tolerate approximately one third of the bowel prep, but states she had multiple episodes of vomiting. After discussion with GI plans for discharge, follow-up outpatient colonoscopy if abdominal pain and diarrhea persists. Abdominal pain likely due to E. coli infection. Patient continues to deny BRBPR. ?Chemistries reassuring, sodium 137, potassium 3.5, kidney function within normal limits BUN 9, creatinine 0.80. No leukocytosis noted on admission, inflammatory markers unremarkable. ?GI recommends MiraLAX and Citrucel daily at discharge. Patient should start this after infection/diarrhea improves. #POTS #Tachycardia ? Patient has remained hemodynamically stable during admission. Patient may resume labetalol 200 mg twice daily at discharge. #Iron deficient anemia ? Patient's hemoglobin 9.5, hematocrit 28.9. Patient should resume iron 324 mg twice daily at discharge. Total time spent on discharge 32 minutes in counseling, documentation, chart review, and direct care with patient. Exam Data for Last 24 hours Vital signs and Labs for Last 24 Hours: Temp Pulse Resp BP Pulse Ox O2 Del Method 98.1 F 82 18 106/57 L 98 Room Air 08/07/25 08:00 08/07/25 08:00 08/07/25 08:00 08/07/25 08:00 08/07/25 08:00 08/07/25 08:00 Laboratory Results - last 24 hr 08/06/25 03:51: C-Reactive Protein 0.4 08/06/25 08:37: Magnesium 1.8 08/06/25 21:12: Stl C. cayetanensis PCR Not detected, Stool Rotavirus (PCR) Not detected, Stl Adenov F 40/41 PCR Not detected, Stool Astrovirus (PCR) Not dete cted, Stool Campylobacter PCR Not detected, Stl C.difficile Tox PCR Not detected, Stool Cryptosporidium PCR Not detected, Stl E.coli Shiga Tox PCR Not detected, Stool E coli O157 PCR Not detected, Stl Enterotoxigenic E PCR Not detected, Stool EPEC (PCR) Detected A, Stool EAEC (PCR) Not detected, Stl E. histolytica PCR Not detected, Stool Giardia Lamblia PCR Not detected, Stool Salmonella PCR Not detected, Stool Sapovirus (PCR) Not detected, Stl P. shigelloides PCR Not detected, Stl Shigella/EIEC PCR Not detected, St Y.enterocolitica PCR Not detected, Stool Vibrio (PCR) Not detected, Stl Vibrio cholerae PCR Not detected, Stl Norovirus GI/GII PCR Not detected 08/07/25 05:29: WBC 4.2 L D, RBC 3.33 L, Hgb 9.5 L D, Hct 28.9 L, MCV 86.8, MCH 29.1, MCHC 33.6, RDW 12.5, Plt Count 166, MPV 10.5 H, Neut % (Auto) 41.8, Lymph % (Auto) 42.6, [place] % (Auto) 12.0 H, Eos % (Auto) 2.9, Baso % (Auto) 0.7, Neut # (Auto) 1.8, Lymph # (Auto) 1.8, [place] # (Auto) 0.5, Eos # (Auto) 0.1, Baso # (Auto) 0.0, ESR 15, Sodium 137, Potassium 3.5, Chloride 103, Carbon Dioxide 26, Anion Gap 11.5, BUN 9, Creatinine 0.80, Estimated Creat Clear 135, Estimated GFR 88, Est GFR ( Amer) 107, Glucose 86, Calcium 8.3 L, Total Bilirubin 1.3, AST 19, ALT 8 L, Alkaline Phosphatase 37 L, Total Protein 6.0 L, Albumin 3.7 D, Globulin 2.3, Albumin/Globulin Ratio 1.6 I & O for Last 24 hours: Intake & Output 08/04/25 08/05/25 08/06/25 08/07/25 23:59 23:59 23:59 23:59 Intake Total 1020 / 1520 1750 / 1750 Output Total 0 / 0 0 / 0 Balance 1020 / 1520 1750 / 1750 Weight 68.719 kg 78.953 kg Constitutional Constitutional: no acute distress, average body habitus and cooperative *Routine HEENT Exam Head: Present normocephalic Eye: Present EOMI ENT: Present mucous membranes moist *Routine Neck Exam Neck: Present supple and full ROM; Absent JVD *Routine Respiratory Exam Respiratory: Present CTA bilaterally, normal respiratory effort, able to speak in complete sentences and symmetric chest movement; Absent wheezes or crackles *Routine Cardiovascular Exam Cardiovascular: Present RRR, Normal S1 and Normal S2; Absent murmur *Routine Abdominal Exam Abdominal: Present soft, normoactive bowel sounds and tenderness (Lower abdominal); Absent distended or firm *Routine Extremities Exam Extremities: Present full ROM, pulses intact and normal capillary refill; Absent edema *Routine Skin Exam Skin: Present intact and dry; Absent erythema or rash *Routine Neurological Exam Neurological: Present alert, oriented X3, vision grossly intact, hearing grossly intact and normal speech Routine Psychiatric Exam Psychiatric: Present normal affect Results Data Completed and Pending Labs on day of discharge: Labs from last 24 hours 08/07/25 08/06/25 08/06/25 05:29 21:12 08:37 WBC 4.2 L D RBC 3.33 L Hgb 9.5 L D Hct 28.9 L MCV 86.8 MCH 29.1 MCHC 33.6 RDW 12.5 Plt Count 166 MPV 10.5 H Neut % (Auto) 41.8 Lymph % (Auto) 42.6 Hidalgo % (Auto) 12.0 H Eos % (Auto) 2.9 Baso % (Auto) 0.7 Neut # (Auto) 1.8 Lymph # (Auto) 1.8 [place] # (Auto) 0.5 Eos # (Auto) 0.1 Baso # (Auto) 0.0 ESR 15 Sodium 137 Potassium 3.5 Chloride 103 Carbon Dioxide 26 Anion Gap 11.5 BUN 9 Creatinine 0.80 Estimated Creat Clear 135 Estimated GFR 88 Est GFR ( Amer) 107 Glucose 86 Calcium 8.3 L Magnesium 1.8 Total Bilirubin 1.3 AST 19 ALT 8 L Alkaline Phosphatase 37 L C-Reactive Protein Total Protein 6.0 L Albumin 3.7 D Globulin 2.3 Albumin/Globulin Ratio 1.6 Stl C. cayetanensis PCR Not detected Stool Rotavirus (PCR) Not detected Stl Adenov F 40/41 PCR Not detected Stool Astrovirus (PCR) Not detected Stool Campylobacter PCR Not detected Stl C.difficile Tox PCR Not detected Stool Cryptosporidium PCR Not detected Stl E.coli Shiga Tox PCR Not detected Stool E coli O157 PCR Not detected Stl Enterotoxigenic E PCR Not detected Stool EPEC (PCR) Detected A Stool EAEC (PCR) Not detected Stl E. histolytica PCR Not detected Stool Giardia Lamblia PCR Not detected Stool Salmonella PCR Not detected Stool Sapovirus (PCR) Not detected Stl P. shigelloides PCR Not detected Stl Shigella/EIEC PCR Not detected St Y.enterocolitica PCR Not detected Stool Vibrio (PCR) Not detected Stl Vibrio cholerae PCR Not detected Stl Norovirus GI/GII PCR Not detected 08/06/25 03:51 WBC RBC Hgb Hct MCV MCH MCHC RDW Plt Count MPV Neut % (Auto) Lymph % (Auto) [place] % (Auto) Eos % (Auto) Baso % (Auto) Neut # (Auto) Lymph # (Auto) [place] # (Auto) Eos # (Auto) Baso # (Auto) ESR Sodium Potassium Chloride Carbon Dioxide Anion Gap BUN Creatinine Estimated Creat Clear Estimated GFR Est GFR ( Amer) Glucose Calcium Magnesium Total Bilirubin AST ALT Alkaline Phosphatase C-Reactive Protein 0.4 Total Protein Albumin Globulin Albumin/Globulin Ratio Stl C. cayetanensis PCR Stool Rotavirus (PCR) Stl Adenov F 40/41 PCR Stool Astrovirus (PCR) Stool Campylobacter PCR Stl C.difficile Tox PCR Stool Cryptosporidium PCR Stl E.coli Shiga Tox PCR Stool E coli O157 PCR Stl Enterotoxigenic E PCR Stool EPEC (PCR) Stool EAEC (PCR) Stl E. histolytica PCR Stool Giardia Lamblia PCR Stool Salmonella PCR Stool Sapovirus (PCR) Stl P. shigelloides PCR Stl Shigella/EIEC PCR St Y.enterocolitica PCR Stool Vibrio (PCR) Stl Vibrio cholerae PCR Stl Norovirus GI/GII PCR DS: Diagnosis Discharge Diagnosis (1) Lower abdominal pain: Status: Acute Code(s): R10.30 - Lower abdominal pain, unspecified (2) Intractable abdominal pain: Status: Acute Code(s): R10.9 - Unspecified abdominal pain (3) Vomiting: Status: Acute Code(s): R11.10 - Vomiting, unspecified (4) Colitis: Status: Acute Code(s): K52.9 - Noninfective gastroenteritis and colitis, unspecified (5) Colitis due to enteropathogenic Escherichia coli: Status: Acute Code(s): A04.0 - Enteropathogenic Escherichia coli infection Meds Home Medications and Allergies Home Medications ?Medication ?Instructions ?Recorded ?Confirmed ?Type ferrous gluconate 324 mg (37.5 mg 324 mg PO BID #60 ta bs 05/01/25 08/06/25 Rx iron) tablet labetalol 200 mg tablet 400 mg (2 x 200 mg) PO BID 3 0 days 07/24/25 08/06/25 Rx #120 tabs calcium 250 mg (as 1 tab PO DAILY #30 tabs 07/17 02/06 Rx citrate)-vitamin D3 5 mcg (200 unit) tablet (Citracal Regular) polyethylene glycol 3350 17 17 g PO DAILY #238 grams 0 08/07/25 Rx gram/dose oral powder (Miralax) New Prescriptions to Start Prescriptions: calcium citrate-vitamin D3 [Citracal Regular] Anali Bass polyethylene glycol 3350 [Miralax] Anali Bass Allergies Allergy/AdvReac Type Severity Reaction Status Date / Time No Known Allergies Allergy Verified 07/24/25 15:06 Discharge Plan Disposition Patient Disposition: Home, Self-Care Condition: Fair Follow up Plan Follow up with: Vita Andre APRN [Primary Care Provider, Medical] - 08/14/25 1:00 pm Eunice Hood APRN [Nurse Practitioner, Gastroenterology] - 08/27/25 11:15 am Prescriptions/Medication Reconciliation: New polyethylene glycol 3350 [Miralax] 17 gram/dose powder 17 g PO DAILY Qty: 238 0RF calcium citrate-vitamin D3 [Citracal Regular] 250 mg-5 mcg (200 unit) tablet 1 tab PO DAILY Qty: 30 0RF Continued labetalol 200 mg tablet 400 mg PO BID 30 Days Qty: 120 5RF ferrous gluconate 324 mg (37.5 mg iron) tablet 324 mg PO BID Qty: 60 0RF Problem Reconciliation Problems Reviewed?: Yes Patient Discharge Instructions ACTIVITY: Continue current activity DIET: advance to your usual diet Patient Instructions: DI for Colitis Print Language: Vietnamese Providers Primary Care Provider: Vita Andre Admit Provider: Simeon Salamanca Attending Provider: Simeon Salamanca
--- NOTE | 2025-08-08 10:42 | SW/DCPLANNER ---
Spoke with patient on the phone. Patient stated that she is doing well. Patient stated that she is aware of her upcoming appointments. 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 Patient stated that she has no concerns or questions at this time. Nataly Toro
[2025-08-13 17:10] LABS: Saccharomyces cerevisiae, IgA 26.8 Units (0.0-24.9); Saccharomyces cerevisiae, IgG 25.4 Units (0.0-24.9)
== END 2025-08-07 13:25 | disposition home or self-care (01) ==
LOC: ER 08:45 → 2ND 12:36
PROVIDERS: Internal Medicine Gastroenterology; Student in an Organized Health Care Education/Training Program; Admitting Provider Internal Medicine Adolescent Medicine; Emergency Provider Student in an Organized Health Care Education/Training Program; PCP Nurse Practitioner Family; Visit Provider Internal Medicine Adolescent Medicine
PROC: 0DJD8ZZ Inspection of Lower Intestinal Tract, Via Natural or Artificial Opening Endoscopic (ICD-10-PCS; CPT 45378; principal; 2025-08-07 12:00)
DX: A04.0 Enteropathogenic Escherichia coli infection (principal); G90.A Postural orthostatic tachycardia syndrome [POTS]; D50.9 Iron deficiency anemia, unspecified; E28.2 Polycystic ovarian syndrome; Z79.899 Other long term (current) drug therapy
CPT/HCPCS: 36415; 74177; 76830; 80053; 81001; 83690; 83735; 84703; 85025; 85651; 86140; 86256; 86671; 86803; 87389; 87507; 96361; 96365; 96366; 96375; 96376; 99285; G0378; J1885; J1956; J2270; J2405; J2543; J2550; J2765; J7120; Q9967

== ENCOUNTER 2025-08-29 14:50 | Outpatient (CLI) | payer BC, SELFPAY ==
[2025-08-29 17:30] LABS: Hematocrit 34.1 % (37.0-47.0); Hemoglobin 11.3 g/dL (12.2-16.2); Immature Granulocytes % 0.2 %; Mean Corpuscular HGB Conc 33.1 g/dL (31.8-35.4); Mean Corpuscular Hemoglobin 28.3 pg (27.0-31.2); Mean Corpuscular Volume 85.5 fl (81-99); Nucleated Red Blood Cells % 0 %; Platelet Count 210 K/mm3 (142-424); Red Blood Count 3.99 M/mm3 (4.20-5.40); Red Cell Distribution Width-SD 39.8 fL; White Blood Count 4.9 K/mm3 (4.8-10.8)
[2025-08-29 19:01] LABS: Vitamin B12 271 pg/mL (239-931)
[2025-08-29 19:20] LABS: Iron 109 ug/dL (37-170)
[2025-08-29 19:32] LABS: Total Iron Binding Capacity 325 ug/dL (265-497)
[2025-08-29 19:59] LABS: Ferritin 28.6 ng/ml (6.24-137)
--- OUTSIDE RECORDS SUMMARY | 2025-08-30 11:13 | XMS_ITS | Data Portability ---
[facility] Organization [facility] Address [address] [address] Care Team Providers Care Assistant Athletic Trainer Name Role Phone NATALIA GERARD Primary Care Provider Assessment Encounter Date Assessment Date Assessment LastModified by Organization Details LastModified Time 03/29/2025 03/29/2025 Annual gynecological exam performed. Patient will come back in a year unless there are new symptoms. [email or web address] Not available 03/26/2025 09:06:11 Plan of Treatment Reminders Order Date Submit Date Provider Last Modified By Organization Details Last Modified Time Details Appointments None recorded. Lab test, urine 2022 023 [facility], [address] [place] [address], [id number], 3 11:37:59 pap, LB 2022 023 [facility], [address] [place], [place], [address], 21:05:54 Referral None recorded. Procedures None recorded. Surgeries None recorded. Imaging None recorded. Medication Orders None recorded. Patient TargetsNo targets recorded. Patient Instructions Encounter Date Encounter Id Patient Instructions Last Modified By Organization Details Last Modified Time 07/01/2023 [id number] intrauterine device (IUD) insertion: care instructions Not available 07/01/2023 11:37:59 07/27/2025 [id number] learning about infertility testing [email or web address] Not available 07/27/2025 13:34:33 Reason for Referral None Reported. Results Created Date Observation Date Name Description Value Unit Range Abnormal Flag Note LastModifiedBy Organization Detail LastModifiedTime 05/13/20 23 05/14/2023 SURES WAB(R ) ADVAN REYNA VAGIN ITIS PLUS, TMA sureswab(R) adv bacterial vaginosis (bv), tma POSITI VE negati ve abnormal Not Available [facility] [address] [facility] [place], [address], 05/14/2023 16:14:15 05/13/20 23 05/14/2023 SURES WAB(R ) ADVAN REYNA VAGIN ITIS PLUS, TMA kate species DETECT ED not detect ed abnormal Not Available [facility] [address] [facility] [place], [address], 05/14/2023 16:14:15 05/13/20 23 05/14/2023 SURES WAB(R [...] resul t. Not Available [facility] [address] [facility] [place], [address], 05/14/2023 16:14:15 05/13/20 23 05/14/2023 SURES WAB(R ) ADVAN REYNA VAGIN ITIS PLUS, TMA trichomonas vaginalis (TV), tma NOT DETECT ED not detect ed normal Not Available [facility] [address] [facility] [place], [address], 05/14/2023 16:14:15 05/13/20 23 05/14/2023 SURES WAB(R ) ADVAN REYNA VAGIN ITIS PLUS, TMA chlamydia trachomatis RNA, tma, urogenital NOT DETECT ED not detect ed normal Not Available [facility] [address] [facility], [place], [address], 05/14/2023 16:14:15 05/13/20 23 05/14/2023 SURES BALDOMERO(R ) ADVAN REYNA VAGIN ITIS PLUS, TMA neisseria gonorrhoeae RNA, tma, urogenital NOT DETECT ED not detect ed normal For addit ional infor ric amado refer to https ://ed ucati on.qu SmartStudy.com/f aq/FA Q154 (This link is being provi ded for infor jayant dey/ reji almonte ses only. ) Not Available [facility] [address] [facility], [place], [address], 05/14/2023 16:14:15 05/13/20 23 05/13/2023 urina lysis , dipst ick Leukocytes Small Not Available [address], [address], 05/13/2023 09:40:59 05/13/20 23 05/13/2023 urina lysis , dipst ick Nitrite negati ve Not Available [address], [address], 05/13/2023 09:40:59 05/13/20 23 05/13/2023 urina lysis , dipst ick Urobilinogen .2 Not Available [address], [address], 05/13/2023 09:40:59 05/13/20 23 05/13/2023 urina lysis , dipst ick Protein Negati ve Not Available [address], [address], 05/13/2023 09:40:59 05/13/20 23 05/13/2023 urina lysis , dipst ick pH 7.0 Not Available [address], [address], 05/13/2023 09:40:59 05/13/20 23 05/13/2023 urina lysis , dipst ick Blood Negati ve Not Available [address], [address], 05/13/2023 09:40:59 05/13/2005/13/2023 urina lysis , dipst ick Specific Schurz 1.015 Not Available [address], [address], 05/13/2023 09:40:59 05/13/20 23 05/13/2023 urina lysis , dipst ick Ketone Negati ve Not Available [address], [address], 05/13/2023 09:40:59 05/13/20 23 05/13/2023 urina lysis , dipst ick Bilirubin Negati ve Not Available [address], [address], 05/13/2023 09:40:59 05/13/2005/13/2023 urina lysis , dipst ick Glucose Negati ve Not Available [address], [address], 05/13/2023 09:40:59 05/13/2005/13/2023 urina lysis , dipst ick Appearance Clear Not Available [address], [address], 05/13/2023 09:40:59 05/13/20 23 05/13/2023 urina lysis , dipst ick Color Yellow Not Available [address], [place], [address], 05/13/2023 09:40:59 05/20/20 23 05/20/2023 CBC W/ AUTO DIFF WBC 9.62 K/uL 4.5-11 .5 Not Available [facility] [address] [place] [address] [place], [address], 05/20/2023 20:44:16 05/20/20 23 05/20/2023 CBC W/ AUTO DIFF RBC 3.84 M/uL 4.0-5. 4 low Not Available [facility]) [address] [place] [address] [place], [address], 05/20/2023 20:44:16 05/20/20 23 05/20/2023 CBC W/ AUTO DIFF HGB 11.0 g/dL 12.0-1 5.0 low Not Available [facility]) [address] [place] [address] [place], [address], 05/20/2023 20:44:16 05/20/20 23 05/20/2023 CBC W/ AUTO DIFF HCT 33.0 % 35-49 low Not Available [facility]) [address] [place] [address] [place], [address], 05/20/2023 20:44:16 05/20/20 23 05/20/2023 CBC W/ AUTO DIFF MCV 85.9 fL 80.0-1 00.0 Not Available [facility]) [address] [place] [address] [place], [address], 05/20/2023 20:44:16 05/20/20 23 05/20/2023 CBC W/ AUTO DIFF MCH 28.6 pg 26.0-3 2.0 Not Available [facility]) [address] [place] [address] [place], [address], 05/20/2023 20:44:16 05/20/20 23 05/20/2023 CBC W/ AUTO DIFF MCHC 33.3 g/dL 32.0-3 6.0 Not Available [facility]) [address] [place] [address] [place], [address], 05/20/2023 20:44:16 05/20/20 23 05/20/2023 CBC W/ AUTO DIFF RDW 13.5 % 11.5-1 4.5 Not Available [facility] [address] [place] [address] [place], [address], 05/20/2023 20:44:16 05/20/20 23 05/20/2023 CBC W/ AUTO DIFF platelet count 172 K/uL 142-42 4 Not Available [facility] [address] [place] [address] [place], [address], 05/20/2023 20:44:16 05/20/20 23 05/20/2023 CBC W/ AUTO DIFF MPV 11.0 fL 6.8-10 .2 high Not Available [facility] [address] [place] [address] [place], [address], 05/20/2023 20:44:16 05/20/20 23 05/20/2023 CBC W/ AUTO DIFF neutrophil % 65.6 % 50-70 Not Available [facility]) [address] [place] [address] [place], [address], 05/20/2023 20:44:16 05/20/20 23 05/20/2023 CBC W/ AUTO DIFF lymphocyte % 24.2 % 18.0-4 2.0 Not Available [facility]) [address] [place] [address] [place], [address], 05/20/2023 20:44:16 05/20/20 23 05/20/2023 CBC W/ AUTO DIFF monocyte % 8.0 % 2.0-11 .0 Not Available [facility]) [address] [place] [address] [place], [address], 05/20/2023 20:44:16 05/20/20 23 05/20/2023 CBC W/ AUTO DIFF eosinophil % 1.5 % 1.0-3. 0 Not Available [facility]) [address] [place] [address] [place], [address], 05/20/2023 20:44:16 05/20/20 23 05/20/2023 CBC W/ AUTO DIFF basophil % 0.3 % 0.0-2. 0 Not Available [facility]) [address] [place] [address] [place], [address], 05/20/2023 20:44:16 05/20/20 23 05/20/2023 CBC W/ AUTO DIFF immature granulocytes % 0.4 % 0.0-0. 8 Not Available [facility]) [address] [place] [address] [place], [address], 05/20/2023 20:44:16 05/20/20 23 05/20/2023 CBC W/ AUTO DIFF nucleated red blood cells % 0.0 % Not Available [facility]) [address] [place] [address] [place], [address], 05/20/2023 20:44:16 05/20/20 23 05/20/2023 CBC W/ AUTO DIFF neutrophil # 6.31 K/uL Not Available [facility]) [address] [place] [address] [place], [address], 05/20/2023 20:44:16 05/20/20 23 05/20/2023 CBC W/ AUTO DIFF lymphocyte # 2.33 K/uL Not Available [facility]) [address] [place] [address] [place], [address], 05/20/2023 20:44:16 05/20/20 23 05/20/2023 CBC W/ AUTO DIFF monocyte # 0.77 K/uL Not Available [facility]) [address] [facility] [place], [address], 05/20/2023 20:44:16 05/20/20 23 05/20/2023 CBC W/ AUTO DIFF eosinophil # 0.14 K/uL Not Available [facility]) [address] [place] [address] [place], [address], 05/20/2023 20:44:16 05/20/20 23 05/20/2023 CBC W/ AUTO DIFF basophil # 0.03 K/uL Not Available [facility]) [address] [place] [address] [place], [address], 05/20/2023 20:44:16 05/20/20 23 05/20/2023 CBC W/ AUTO DIFF immature gramulocytes # 0.04 K/uL Not Available [facility]) [address] [place] [address] [place], [address], 05/20/2023 20:44:16 05/20/20 23 05/20/2023 CBC W/ AUTO DIFF nucleated red blood cells # 0.00 k/uL Not Available [facility]) [address] [place] [address] [place], [address], 05/20/2023 20:44:16 05/20/20 23 05/20/2023 CBC W/ AUTO DIFF manual differential NO Not Available [facility]) [address] [place] [address] [place], [address], 05/20/2023 20:44:16 05/20/20 23 05/20/2023 CBC W/ AUTO DIFF note Unles s other campbell noted testi ng [facility] [address] [facility] [place] [address] Wesly duarte MD Not Available [facility]) [address] [facility] [place], [address], 05/20/2023 20:44:16 05/20/20 23 05/20/2023 BASIC METAB OLIC PANEL sodium 138 mmol/ L 137-14 7 Not Available [facility]) [address] [place] [address] [place], [address], 05/20/2023 20:59:54 05/20/20 23 05/20/2023 BASIC METAB OLIC PANEL potassium 4.0 mmol/ L 3.5-5. 1 Not Available [facility]) [address] [place] [address] [place], [address], 05/20/2023 20:59:54 05/20/20 23 05/20/2023 BASIC METAB OLIC PANEL chloride 105 mmol/ L 98-110 Not Available [facility]) [address] [facility] [place], [address], 05/20/2023 20:59:54 05/20/20 23 05/20/2023 BASIC METAB OLIC PANEL carbon dioxide 21 mmol/ L 21-30 Not Available [facility]) [address] [place] [address] [place], [address], 05/20/2023 20:59:54 05/20/20 23 05/20/2023 BASIC METAB OLIC PANEL anion gap 12 mmol/ L 6-14 Not Available [facility]) [address] [place] [address] [place], [address], 05/20/2023 20:59:54 05/20/20 23 05/20/2023 BASIC METAB OLIC PANEL glucose 79 mg/dL 70-115 Not Available [facility]) [address] [place] [address] [place], [address], 05/20/2023 20:59:54 05/20/20 23 05/20/2023 BASIC METAB OLIC PANEL BUN 7 mg/dL 7-17 Not Available [facility]) [address] [place] [address] [place], [address], 05/20/2023 20:59:54 05/20/20 23 05/20/2023 BASIC METAB OLIC PANEL creatinine 0.5 mg/dL 0.5-1. 5 Not Available [facility]) [address] [place] [address] [place], [address], 05/20/2023 20:59:54 05/20/20 23 05/20/2023 BASIC METAB OLIC PANEL BUN/creatini ne ratio 14 ratio 10-20 Not Available [facility]) [address] [place] [address] [place], [address], 05/20/2023 20:59:54 05/20/20 23 05/20/2023 BASIC METAB OLIC PANEL glom filtration rate 164 mL/mi n >60- Not Available [facility]) [address] [place] [address] [place], [address], 05/20/2023 20:59:54 05/20/20 23 05/20/2023 BASIC METAB OLIC PANEL osmolality (calculated) 284 mosmo l/kg 275-30 1 OSMOL ALITY IS A CALCU LATIO N UTILI ZING THE SERUM /PLAS MA SODIU M, GLUCO SE AND UREA NITRO GEN (BUN) LEVEL S. FOR THE MOST ACCUR ATE RESUL T A MEASU RED SERUM OSMOL ALITY IS SUGGE STED. Not Available [facility]) [address] [place] [address] [place], [address], 05/20/2023 20:59:54 05/20/20 23 05/20/2023 BASIC METAB OLIC PANEL calcium 9.0 mg/dL 8.5-10 .8 Not Available [facility]) [address] [place] [address] [place], [address], 05/20/2023 20:59:54 05/20/20 23 05/20/2023 BASIC METAB OLIC PANEL note Unles s other campbell noted testi [facility] [address] [place] [address] Wesly duarte MD Not Available [facility]) [address] [facility] [place], [address], 05/20/2023 20:59:54 05/20/20 23 05/20/2023 UDS + OXYCO DONE + SUBOX ONE amphetamine NEGATI VE negati ve Not Available [facility]) [address] [place] [address] [place], [address], 05/20/2023 21:33:50 05/20/20 23 05/20/2023 UDS + OXYCO DONE + SUBOX ONE barbiturates NEGATI VE negati ve Not Available [facility] [address] [facility] [place], [address], 05/20/2023 21:33:50 05/20/20 23 05/20/2023 UDS + OXYCO DONE + SUBOX ONE benzodiazepi ne NEGATI VE negati ve Not Available [facility]) [address] [facility] [place], [address], 05/20/2023 21:33:50 05/20/20 23 05/20/2023 UDS + OXYCO DONE + SUBOX ONE THC (cannabinoid ) NEGATI VE negati ve Not Available [facility]) [address] [place] [address] [place], [address], 05/20/2023 21:33:50 05/20/20 23 05/20/2023 UDS + OXYCO DONE + SUBOX ONE methadone NEGATI VE negati ve Not Available [facility]) [address] [place] [address] [place], [address], 05/20/2023 21:33:50 05/20/20 23 05/20/2023 UDS + OXYCO DONE + SUBOX ONE opiate NEGATI VE negati ve Not Available [facility]) [address] [place] [address] [place], [address], 05/20/2023 21:33:50 05/20/20 23 05/20/2023 UDS + OXYCO DONE + SUBOX ONE pcp (phencyclidi ne) NEGATI VE negati ve Not Available [facility]) [address] [place] [address] [place], [address], 05/20/2023 21:33:50 05/20/20 23 05/20/2023 UDS + OXYCO DONE + SUBOX ONE cocaine NEGATI VE negati ve Not Available [facility]) [address] [place] [address] [place], [address], 05/20/2023 21:33:50 05/20/20 23 05/20/2023 UDS + OXYCO DONE + SUBOX ONE oxycodone NEGATI VE negati ve Not Available [facility]) [address] [place] [address] [place], [address], 05/20/2023 21:33:50 05/20/20 23 05/20/2023 UDS + OXYCO DONE + SUBOX ONE oxycodone internal control PASS PASS Not Available [facility] [address] [place] [address] [place], [address], 05/20/2023 21:33:50 05/20/20 23 05/20/2023 UDS + OXYCO DONE + SUBOX ONE suboxone (buprenorphi ne) NEGATI VE negati ve Not Available [facility] [address] [place] [address] [place], [address], 05/20/2023 21:33:50 05/20/20 23 05/20/2023 UDS + OXYCO DONE + SUBOX ONE suboxone internal control PASS PASS Not Available [facility] [address] [place] [address] [place], [address], 05/20/2023 21:33:50 05/20/20 23 05/20/2023 UDS + OXYCO DONE + SUBOX ONE note Unles s other campbell noted testi ng perfo [facility]med at: [facility] [address] [place] [address] Wesly duarte MD Not Available [facility] [address] [place] [address] [place], [address], 05/20/2023 21:33:50 05/20/20 23 05/20/2023 TYPE/ SCREE N status information Comple edinson Not Available [facility] [address] [place] [address] [place], [address], 05/20/2023 22:16:17 05/20/20 23 05/20/2023 TYPE/ SCREE N ABO O NEGATI VE Not Available [facility] [address] [place] [address] [place], [address], 05/20/2023 22:16:17 05/20/20 23 05/20/2023 TYPE/ SCREE N antibody screen POSITI VE Presu mptiv e passi ve anti- D due to Rh Immun e Globu dejon admin is trati on on . The patie nt has a titer of <1 with a neg ative antib sveta scree n by tube metho d Not Available [facility]) [address] [place] [address] [place], [address], 05/20/2023 22:16:17 05/20/20 23 05/20/2023 TYPE/ SCREE N history check Comple edinson Not Available [facility]) [address] [place] [address] [place], [address], 05/20/2023 22:16:17 05/20/20 23 05/20/2023 TYPE/ SCREE N note Unles s other campbell noted testi ng perfo rmed at: [facility] [address] [place] [address] Wesly duarte MD Not Available [facility]) [address] [place] [address] [place], [address], 05/20/2023 22:16:17 05/22/20 23 05/22/2023 CBC W/ AUTO DIFF WBC 10.32 K/uL 4.5-11 .5 Not Available [facility] [address] [place] [address] [place], [address], 05/22/2023 05:44:56 05/22/20 23 05/22/2023 CBC W/ AUTO DIFF RBC 3.44 M/uL 4.0-5. 4 low Not Available [facility] [address] [place] [address] [place], [address], 05/22/2023 05:44:56 05/22/20 23 05/22/2023 CBC W/ AUTO DIFF HGB 9.8 g/dL 12.0-1 5.0 low Not Available [facility] [address] [place] [address] [place], [address], 05/22/2023 05:44:56 05/22/2005/22/2023 CBC W/ AUTO DIFF HCT 30.6 % 35-49 low Not Available [facility] [address] [place] [address] [place], [address], 05/22/2023 05:44:56 05/22/20 23 05/22/2023 CBC W/ AUTO DIFF MCV 89.0 fL 80.0-1 00.0 Not Available [facility]) [address] [place] [address] [place], [address], 05/22/2023 05:44:56 05/22/20 23 05/22/2023 CBC W/ AUTO DIFF MCH 28.5 pg 26.0-3 2.0 Not Available [facility] [address] [place] [address] [place], [address], 05/22/2023 05:44:56 05/22/20 23 05/22/2023 CBC W/ AUTO DIFF MCHC 32.0 g/dL 32.0-3 6.0 Not Available [facility] [address] [place] [address] [place], [address], 05/22/2023 05:44:56 05/22/2005/22/2023 CBC W/ AUTO DIFF RDW 13.9 % 11.5-1 4.5 Not Available [facility] [address] [place] [address] [place], [address], 05/22/2023 05:44:56 05/22/2005/22/2023 CBC W/ AUTO DIFF platelet count 168 K/uL 142-42 4 Not Available [facility] [address] [place] [address] [place], [address], 05/22/2023 05:44:56 05/22/2005/22/2023 CBC W/ AUTO DIFF MPV 11.3 fL 6.8-10 .2 high Not Available [facility]) [address] [place] [address] [place], [address], 05/22/2023 05:44:56 05/22/2005/22/2023 CBC W/ AUTO DIFF neutrophil % 64.5 % 50-70 Not Available [facility]) [address] [place] [address] [place], [address], 05/22/2023 05:44:56 05/22/20 23 05/22/2023 CBC W/ AUTO DIFF lymphocyte % 24.6 % 18.0-4 2.0 Not Available [facility]) [address] [place] [address] [place], [address], 05/22/2023 05:44:56 05/22/20 23 05/22/2023 CBC W/ AUTO DIFF monocyte % 8.5 % 2.0-11 .0 Not Available [facility]) [address] [place] [address] [place], [address], 05/22/2023 05:44:56 05/22/20 23 05/22/2023 CBC W/ AUTO DIFF eosinophil % 1.4 % 1.0-3. 0 Not Available [facility] [address] [place] [address] [place], [address], 05/22/2023 05:44:56 05/22/20 23 05/22/2023 CBC W/ AUTO DIFF basophil % 0.3 % 0.0-2. 0 Not Available [facility] [address] [place] [address] [place], [address], 05/22/2023 05:44:56 05/22/20 23 05/22/2023 CBC W/ AUTO DIFF immature granulocytes % 0.7 % 0.0-0. 8 Not Available [facility] [address] [place] [address] [place], [address], 05/22/2023 05:44:56 05/22/20 23 05/22/2023 CBC W/ AUTO DIFF nucleated red blood cells % 0.0 % Not Available [facility] [address] [place] [address] [place], [address], 05/22/2023 05:44:56 05/22/20 23 05/22/2023 CBC W/ AUTO DIFF neutrophil # 6.66 K/uL Not Available [facility] [address] [place] [address] [place], [address], 05/22/2023 05:44:56 05/22/20 23 05/22/2023 CBC W/ AUTO DIFF lymphocyte # 2.54 K/uL Not Available [facility] [address] [place] [address] [place], [address], 05/22/2023 05:44:56 05/22/20 23 05/22/2023 CBC W/ AUTO DIFF monocyte # 0.88 K/uL Not Available [facility]) [address] [place] [address] [place], [address], 05/22/2023 05:44:56 05/22/20 23 05/22/2023 CBC W/ AUTO DIFF eosinophil # 0.14 K/uL Not Available [facility] [address] [place] [address] [place], [address], 05/22/2023 05:44:56 05/22/20 23 05/22/2023 CBC W/ AUTO DIFF basophil # 0.03 K/uL Not Available [facility] [address] [place] [address] [place], [address], 05/22/2023 05:44:56 05/22/20 23 05/22/2023 CBC W/ AUTO DIFF immature gramulocytes # 0.07 K/uL Not Available [facility] [address] [place] [address] [place], [address], 05/22/2023 05:44:56 05/22/20 23 05/22/2023 CBC W/ AUTO DIFF nucleated red blood cells # 0.00 k/uL Not Available [facility] [address] [place] [address] [place], [address], 05/22/2023 05:44:56 05/22/20 23 05/22/2023 CBC W/ AUTO DIFF manual differential NO Not Available [facility] [address] [place] [address] [place], [address], 05/22/2023 05:44:56 05/22/20 23 05/22/2023 CBC W/ AUTO DIFF note Unles s other campbell noted testi ng [facility] [address] [place] [address] Wesly duarte MD Not Available [facility]) [address] [place] [address] Yasmin [place], [address], 05/22/2023 05:44:56 05/22/20 23 05/22/2023 BASIC METAB OLIC PANEL sodium 140 mmol/ L 137-14 7 Not Available [facility] (Pre-Op Clinic) [address] [place] [address] [place], [address], 05/22/2023 05:57:29 05/22/20 23 05/22/2023 BASIC METAB OLIC PANEL potassium 4.3 mmol/ L 3.5-5. 1 Not Available [facility] (Pre-Op Clinic) [address] [place] [address] [place], [address], 05/22/2023 05:57:29 05/22/20 23 05/22/2023 BASIC METAB OLIC PANEL chloride 108 mmol/ L 98-110 Not Available [facility] (Pre-Op Clinic) [address] [place] [address] [place], [address], 05/22/2023 05:57:29 05/22/20 23 05/22/2023 BASIC METAB OLIC PANEL carbon dioxide 24 mmol/ L 21-30 Not Available [facility] (Pre-Op Clinic) [address] [place] [address] [place], [address], 05/22/2023 05:57:29 05/22/20 23 05/22/2023 BASIC METAB OLIC PANEL anion gap 8 mmol/ L 6-14 Not Available [facility] (Pre-Op Clinic) [address] [place] [address] [place], [address], 05/22/2023 05:57:29 05/22/20 23 05/22/2023 BASIC METAB OLIC PANEL glucose 79 mg/dL 70-115 Not Available [facility] (Pre-Op Clinic) [address] [place] [address] [place], [address], 05/22/2023 05:57:29 05/22/20 23 05/22/2023 BASIC METAB OLIC PANEL BUN 6 mg/dL 7-17 low Not Available [facility] (Pre-Op Clinic) [address] [place] [address] [place], [address], 05/22/2023 05:57:29 05/22/20 23 05/22/2023 BASIC METAB OLIC PANEL creatinine 0.5 mg/dL 0.5-1. 5 Not Available [facility] (Pre-Op Clinic) [address] [place] [address] [place], [address], 05/22/2023 05:57:29 05/22/20 23 05/22/2023 BASIC METAB OLIC PANEL BUN/creatini ne ratio 12 ratio 10-20 Not Available [facility] (Pre-Op Clinic) [address] [place] [address] [place], [address], 05/22/2023 05:57:29 05/22/20 23 05/22/2023 BASIC METAB OLIC PANEL glom filtration rate 164 mL/mi n >60- Not Available [facility] (Pre-Op Clinic) [address] [place] [address] [place], [address], 05/22/2023 05:57:29 05/22/20 23 05/22/2023 BASIC METAB OLIC PANEL osmolality (calculated) 288 mosmo l/kg 275-30 1 OSMOL ALITY IS A CALCU LATIO N UTILI ZING THE SERUM /PLAS MA SODIU M, GLUCO SE AND UREA NITRO GEN (BUN) LEVEL S. FOR THE MOST ACCUR ATE RESUL T A MEASU RED SERUM OSMOL ALITY IS SUGGE STED. Not Available [facility] (Pre-Op Clinic) [address] [place] [address] [place], [address], 05/22/2023 05:57:29 05/22/20 23 05/22/2023 BASIC METAB OLIC PANEL calcium 8.8 mg/dL 8.5-10 .8 Not Available [facility] (Pre-Op Clinic) [address] [place] [address] [place], [address], 05/22/2023 05:57:29 05/22/20 23 05/22/2023 BASIC METAB OLIC PANEL note Unles s other campbell noted testi ng perfo rmed at: [facility] [address] [place] [address] Wesly duarte MD Not Available [facility] (Pre-Op Clinic) [address] [place] [address] [place], [address], 05/22/2023 05:57:29 07/01/20 23 07/02/2023 IMAGE -GUID ED PAP W/AGE BASED SCR CIELO COLS comment Not Available [facility] [address] [facility] [place], [address], 07/02/2023 21:05:54 07/01/20 23 07/02/2023 IMAGE -GUID ED PAP W/AGE BASED SCR CIELO COLS report status: Not Available [facility] [address] [facility] [place], [address], 07/02/2023 21:05:54 07/01/20 23 07/02/2023 IMAGE -GUID ED PAP W/AGE BASED SCR CIELO COLS clinical information: Not Available [facility] [address] [facility] [place], [address], 07/02/2023 21:05:54 07/01/20 23 07/02/2023 IMAGE -GUID ED PAP W/AGE BASED SCR CIELO COLS LMP: Not Available [facility] [address] [facility] [place], [address], 07/02/2023 21:05:54 07/01/20 23 07/02/2023 IMAGE -GUID ED PAP W/AGE BASED SCR CIELO COLS prev. Pap: Not Available [facility] [address], [place], [address], 07/02/2023 21:05:54 07/01/2007/02/2023 IMAGE -GUID ED PAP W/AGE BASED SCR CIELO COLS prev. BX: Not Available [facility] [place] [facility] [address], [place], [address], 07/02/2023 21:05:54 07/01/20 23 07/02/2023 IMAGE -GUID ED PAP W/AGE BASED SCR CIELO COLS source: Not Available [facility] [place] [facility] [address], [place], [address], 07/02/2023 21:05:54 07/01/20 23 07/02/2023 IMAGE -GUID ED PAP W/AGE BASED SCR CIELO COLS statement of adequacy: Not Available [facility] [place] [facility] [address], [place], [address], 07/02/2023 21:05:54 07/01/20 23 07/02/2023 IMAGE -GUID ED PAP W/AGE BASED SCR CIELO COLS general categorizati on: Not Available [facility] [place] [facility] [address], [place], [address], 07/02/2023 21:05:54 07/01/20 23 07/02/2023 IMAGE -GUID ED PAP W/AGE BASED SCR CIELO COLS interpretati on/result: Not Available [facility] [address], [place], [address], 07/02/2023 21:05:54 07/01/20 23 07/02/2023 IMAGE -GUID ED PAP W/AGE BASED SCR CIELO COLS infection: Not Available [facility] [place] [facility] [address], [place], [address], 07/02/2023 21:05:54 07/01/20 23 07/02/2023 IMAGE -GUID ED PAP W/AGE BASED SCR CIELO COLS comment: Not Available [facility] [place] [facility] [address] [facility] [place], [address], 07/02/2023 21:05:54 07/01/20 23 07/02/2023 IMAGE -GUID ED PAP W/AGE BASED SCR CIELO COLS cytotechnolo gist: Not Available [facility] [place] [facility] [address] [facility] [place], [address], 07/02/2023 21:05:54 07/01/20 23 07/02/2023 IMAGE -GUID ED PAP W/AGE BASED SCR CIELO COLS review cytotechnolo gist: Not Available [facility] [place] [facility] [address] [facility] [address], [place], [address], 07/02/2023 21:05:54 07/01/20 23 07/02/2023 IMAGE -GUID ED PAP W/AGE BASED SCR CIELO COLS pathologist: Not Available [facility] [place] [facility] [address] [facility] [address], [place], [address], 07/02/2023 21:05:54 07/01/20 23 07/02/2023 IMAGE -GUID ED PAP W/AGE BASED SCR CIELO COLS chlamydia trachomatis RNA, tma, urogenital NOT DETECT ED not detect ed normal Not Available [facility] [place] [facility] [address] [facility] [address], [place], [address], 07/02/2023 21:05:54 07/01/20 23 07/02/2023 IMAGE -GUID ED PAP W/AGE BASED SCR CIELO COLS neisseria gonorrhoeae RNA, tma, urogenital NOT DETECT ED not detect ed normal Not Available [facility] [place] [facility] [address], [place], [address], 07/02/2023 21:05:54 07/01/20 23 07/02/2023 IMAGE -GUID ED PAP W/AGE BASED SCR CIELO COLS comment The marivel tical perfo rmanc e bren cteri stics of this assay , when used to test SureP ath(T M) speci mens have been deter mined by [facility]. The modif icati ons have not been clear ed or appro kiera by the FDA. This assay has been valid ated pursu ant to the CLIA regul ation s and is used for clini saleem purpo ses. For addit ional infor ric amado e refer to https ://ed ucati on.qu estdi agnos tics. com/f aq/FA Q154 (This link is being provi ded for infor jayant dey/ educa megan l purpo ses only. ) Not Available [facility] [place] [facility] [address] [place], [address], 07/02/2023 21:05:54 07/01/20 23 07/05/2023 IMAGE -GUID ED PAP W/AGE BASED SCR CIELO COLS comment This order for age-b ased cervi saleem cance r and STI scree betty follo ws ACOG guide lines (PB 168, 140, FAQ07 1). See indiv idual assay s for perfo rming site locat ion. Not Available [facility] [place] [facility] [address] [place], [address], 07/05/2023 16:11:09 07/01/20 23 07/05/2023 IMAGE -GUID ED PAP W/AGE BASED SCR CIELO COLS clinical information: normal None given Not Available [facility] [place] [facility] [address] | [place], [address], 07/05/2023 16:11:09 07/01/20 23 07/05/2023 IMAGE -GUID ED PAP W/AGE BASED SCR CIELO COLS LMP: normal NONE GIVEN Not Available [facility] [place] [facility] [address] [place], [address], 07/05/2023 16:11:09 07/01/20 23 07/05/2023 IMAGE -GUID ED PAP W/AGE BASED SCR CIELO COLS prev. Pap: normal NONE GIVEN Not Available [facility] [place] [facility] [address] [place], [address], 07/05/2023 16:11:09 07/01/20 23 07/05/2023 IMAGE -GUID ED PAP W/AGE BASED SCR CIELO COLS prev. BX: normal NONE GIVEN Not Available [facility] [place] [facility] [address] [place], [address], 07/05/2023 16:11:09 07/01/20 23 07/05/2023 IMAGE -GUID ED PAP W/AGE BASED SCR CIELO COLS source: normal other Not Available [facility] [place] [facility] [address] [place], [address], 07/05/2023 16:11:09 07/01/20 23 07/05/2023 IMAGE -GUID ED PAP W/AGE BASED SCR CIELO COLS statement of adequacy: normal Satis facto ry for evalu ation . Endoc ervic al/tr ansfo rmati on zone compo nent prese nt. Age and/o r menst rual statu s not provi ded Not Available [facility] [place] [facility] [address] [place], [address], 07/05/2023 16:11:09 07/01/20 23 07/05/2023 IMAGE -GUID ED PAP W/AGE BASED SCR CIELO COLS interpretati on/result: normal Cytol ogy Resul ts: Negat bryant for intra epith elial lesio n or malig rui . Not Available [facility] [place] [facility] [address] [place], [address], 07/05/2023 16:11:09 07/01/20 23 07/05/2023 IMAGE -GUID ED PAP W/AGE BASED SCR CIELO COLS comment: normal This Pap test has been evalu ated with compu ter mohan [employer] . Not Available [facility] [place] [facility] [address] [place], [address], 07/05/2023 16:11:09 07/01/20 23 07/05/2023 IMAGE -GUID ED PAP W/AGE BASED SCR CIELO COLS cytotechnolo gist: normal SXO, CT( CP) CT Scree betty locat ion: [facility] [place] [address] [place] [address] Not Available [facility] [place] [facility] [address] [facility], [place], [address], 07/05/2023 16:11:09 07/01/20 23 07/05/2023 IMAGE -GUID [...] matio n. Not Available [facility] [place] [facility] [address] [facility], [place], [address], 07/05/2023 16:11:09 07/01/20 23 07/05/2023 IMAGE -GUID ED PAP W/AGE BASED SCR CIELO COLS chlamydia trachomatis RNA, tma, urogenital NOT DETECT ED not detect ed normal Not Available [facility] [place] [facility] [address] [facility], [place], [address], 07/05/2023 16:11:09 07/01/20 23 07/05/2023 IMAGE -GUID ED PAP W/AGE BASED SCR CIELO COLS neisseria gonorrhoeae RNA, tma, urogenital NOT DETECT ED not detect ed normal Not Available [facility] [place] [facility] [address] [facility], [place], [address], 07/05/2023 16:11:09 07/01/20 23 07/05/2023 IMAGE -GUID [...] e refer to https ://ed ucati on.qu estdi StatSheets. com/f aq/FA Q154 (This link is being provi ded for infor matio n/ educa megan l purpo ses only. ) Not Available [facility] [place] [facility] [address] [facility], [place], [address], 07/05/2023 16:11:09 07/01/20 23 07/01/2023 pregn wallace test, urine HCG negati ve Not Available [address], [place], [address], 07/01/2023 11:03:17 08/21/20 25 08/22/2025 PROGE STERO NE progesterone 1.4 NG/mL normal Folli cular phase 0.1 - 0.9 Lutea l phase 1.8 - 23.9 Ovula tion phase 0.1 - 12.0 Pregn ant First trime ster 11.0 - 44.3 Secon d trime ster 25.4 - 83.3 Third trime ster 58.7 - 214.0 Postm enopa usal 0.0 - 0.1 Not Available [facility] ([facility]) [address] [facility], [place], [address], 08/22/2025 08:13:58 Result Notes None recorded. Problems Name Problem SNOMED Code Status Onset Date Resolution Date Notes Provider Name and Address Organization Details Recorded Time RhD negative 200872509 Completed S/p Rhogam @ 28 weeks (03/05/23 ) Melanie wilhelm, [employer] 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 FOB carrier testing negative Melanie wilhelm, [employer] 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 FOB carrier testing negative Melanie wilhelm, [employer] 3 10:56:38 RhD negative 170179247 Active S/p Rhogam @ 28 weeks (03/05/23 ) Melanie wilhelm, [employer] 3 10:56:38 Normal pregnanc y in primigra ishmael 00045413399 4103 Completed 201907/30/2022 Juanis Bryan [employer] [address] [place], [address] , [employer] 2 09:33:24 Gestatio n period, 9 weeks 105610 Completed 201907/30/2022 Problem Code: Z3A.09; Problem Code Type: ICD-10; Removal Reason: resolved Juanisbridger Bryan, [employer] [address] [place], [address] , [employer] 2 09:32:54 Blighted ovum 26951606 Completed 201907/30/2022 Problem Code: O02.0; Problem Code Type: ICD-10; Removal Reason: resolved Juanis Irvin, [employer] [address] [place], [address] , [employer] 2 09:32:33 Miscarri age without complica tion 91604482 Completed 201907/30/2022 Problem Code: O03.4; Problem Code Type: ICD-10; Juanis Bryan APRN [address] [place] [address], [place], [place], [address] [place] [address] , [employer] 2 09:33:19 Fragile X chromoso me 941465098 Active 2019 Problem Code: Q99.2; Problem Code Type: ICD-10; Not Available [facility] 2 21:11:13 Blood group O Rh(D) negative 007261384 Active 2019 Problem Code: Z67.41; Problem Code Type: ICD-10; Not Available [facility] 2 21:11:14 Uses depot contrace ption 244013226 Completed 201907/30/2022 Removal Reason: [facility] Juanis Bryan APRN [address] [place] [address], [address] [place] [address] , [employer] 2 09:33:11 Surveill ance of contrace ption Completed 202007/30/2022 Juanis Bryan APRN [address] [place] [address], [address] [place] [address] , [employer] 2 09:33:30 Uses combined oral contrace ption 184328365 Completed 202007/30/2022 Problem Code: Z30.011; Problem Code Type: ICD-10; Removal Reason: [facility] Juanis Bryan APRN [address] [place] [address], [address] [place] [address] , [employer] 2 09:32:44 Pelvic and perineal pain 756092952 Completed 202107/30/2022 Problem Code: R10.2; Problem Code Type: ICD-10; Juanis Bryan APRN [address] [place] [address], [address] , [employer] 2 09:33:34 Pregnanc y 70690405 Completed 202107/01/2023 Melanie Weathers choco, [employer] 3 10:56:48 Nausea and vomiting 08814929 Active 2021 Juanis Bryan APRN [address] [place] [address], [address] , [employer] 2 17:09:08 Hydronep hrosis 56186519 Active 2022 S/p PERC neph tube until delivery by urology, will d/c postpart um, taking muscle relaxer prn, MFM recommen ded delivery @ 38 weeks Melanie Koenigkenyatta wilhelm, [employer] 3 10:56:38 Renal angle tenderne ss 014891189 Active 2022 Praveena Webb MD [address] [place] [address], [address] , [employer] 3 15:42:05 Hydronep hrosis 83991317 Completed 2022 S/p PERC neph tube until delivery by urology, will d/c postpart um, taking muscle relaxer prn, MFM recommen ded delivery @ 38 weeks Melanie Koenigkenyatta wilhelm, [employer] 3 10:56:38 Blood in urine 00621927 Active 2022 Praveena Webb MD [address] [place] [address], [address] , [employer] 3 15:18:43 Headache 49141079 Active 2022 Praveena Webb MD [address] [place] [address], [address] , [employer] 3 15:32:57 Reduced movement 075460159 Active 2022 Praveena Webb MD [address] [place] [address], [address] , [employer] 3 10:05:33 Anemia of pregnanc y 78536556 Active 2022 Juanis Bryan APRN [address] [place] [address], [address] , [employer] 3 11:03:22 High risk pregnanc y 53268618 Active 2022 Praveena Webb MD [address] [place] [address], [address] , [employer] 3 09:42:00 Candidia sis of vagina 44515707 Active 2022 Praveena Webb MD [address] [place] [address], [address] , [employer] 3 06:31:11 Female infertil ity 6110933 Active 2024 Juanis Bryan APRN [address] [place] [address], [address] , [employer] 5 16:47:25 Problem Notes None recorded. Procedures Surgical History Date Name Laterality Status Provider Name and Address Organization Details Recorded Time 03/29/20 25 IUD Removal completed Juanis Bryan APRN [address] [place] [address], [address], [employer] 03/29/2025 13:51:06 07/01/20 23 IUD Insertion completed Praveena Webb MD [address] [place] [address], [address], [employer] 07/01/2023 10:54:03 07/01/20 23 Date of Last Pap Smear completed Francine Peralta [employer] 03/29/2025 12:55:56 04/16/20 23 NST completed Praveena Webb MD [address] [place] [address], [address], [employer] 04/16/2023 10:06:32 12/13/19 21 dilation and curettage completed Not Available [facility] 07/21/2022 22:56:17 Dilation and Curettage completed [employer] 10/12/2022 13:43:46 percutaneous insertion of nephrostomy tube completed [employer] [facility]. 04/16/2023 09:42:16 Imaging Results None recorded. Procedure Notes None recorded. Medical Equipment None Reported. Allergies No known drug allergies Medications Name Sig Start Date Stop Date Status Note LastModified by Organization Details LastModified Time labetalol 200 mg tablet TAKE 2 TABLETS BY MOUTH TWICE A DAY active Not Available Not Available No t [...] completed Not Available Not Available Not Available Clomid 50 mg tablet Take 1 tablet by mouth daily on cycle day 3-7. 2024 active Not Available Not Available Not Avai lable oxycodone 5 mg tablet 04/16 completed Not Available Not Available Not Available cyclobenzap rine 5 mg tablet 05/04 completed Not Available Not Available Not Available [employer] a 06/05 completed Not Available Not Available Not Available 03/29 completed Not Available Not Available Not Available drospirenon e 3 mg-ethinyl estradiol 0.02 mg tablet take 1 tablet by oral route once daily 07/04 completed Not Available Not Available Not Available ferrous gluconate 324 mg (38 mg iron) tablet TAKE ONE TABLET BY MOUTH TWICE DAILY 07/27 completed Not Available Not Available Not Available [...] TAKE ONE CAPSULE BY MOUTH TWICE DAILY 07/27 completed Not Available Not Available Not Available ferrous gluconate 324 mg (37.5 mg iron) tablet Take by oral route. active Not Available Not Available No t [...] and Address Organization Details Last Updated DateTime 29916.6 1 g 70 /min 99 % 99 % 23.4 kg/m2 167.64 cm 110/62 mm[Hg] Autumn [employer] 12:58:44 Date Recorded Body height Body mass index (BMI) Systolic And Diastolic Provider Name and Address Organization Details Last Updated DateTime 06/10/2023 167.64 cm 23.2 kg/m2 116/74 mm[Hg] SUNDAY DIANA [employer] 06/10/2023 10:30:24 Date Recorded Body weight Provider Name an d Address Organization Details Last Updated DateTime 06/10/2023 72891.606160 g Melanie Weathers [employer] 07/01/2023 10:56:42 Date Recorded Body weight Provider Name an d Address Organization Details Last Updated DateTime 07/01/2023 71048.470593 g Melanie Koenigkenyatta [employer] 07/01/2023 10:56:42 Date Recorded Body height Body mass index (BMI) Systolic And Diastolic Provider Name and Address Organization Details Last Updated DateTime 07/01/2023 167.64 cm 22.6 kg/m2 110/68 mm[Hg] Francine Peralta [employer] 07/01/2023 10:14:38 Date Recorded Body height Body mass index (BMI) Body weight Heart rate Oxygen saturation Oxygen saturation in Arterial blood by Pulse oximetry Systolic And Diastolic Provider Name and Address Organization Details Last Updated DateTime 167.64 cm 24.2 kg/m2 20303.8 6 g 74 /min 99 % 99 % 112/62 mm[Hg] Francine Peralta [employer] 13:06:10 Date Recorded Body height Body mass index (BMI) Body weight Systolic And Diastolic Provider Name and Address Organization Details Last Updated DateTime 08/26/2023 167.64 cm 22.8 kg/m2 54503.52 g 108/66 mm[Hg] Francine Peralta [employer] 08/26/2023 15:25:48 Social History Question Answer Notes LastModified by Organizat ion Details LastModified Time Tobacco Smoking Status Never Smoker SocialHis toryQuest ion: 'Tobacco/ Alcohol/S upplement s'; SocialHis toryRespo nse: 'Never Smoker'; Not Available [facility] 07/21/2022 22:55:35 Do You Have An Advance [...] not available 10/12/2022 Who Is Your Employer? [employer] [email or web address] Information not available 09/02/2022 How Many Days [...] Do You Have A Medical Power Of Regulatory Affairs Consultant? No Information not available 07/30/2022 What Was The Date Of Your Most Recent Tobacco Screening? 07/27/2025 Information not available 07/23/2025 Do You Have Any Pets? Yes Information [...] Has Tobacco Cessation Counseling Been Provided? No [email or web address] Information not available 03/29/2025 Have You Recently [...] other forms of tobacco or nicotine? No [email or web address] Information not available 03/29/2025 Are you currently employed? Yes Information not available 07/30/2022 Do you have transportation difficulties? No Information not available 07/30/2022 Are you able to walk independently without assistance or assistive devices? YESWOREST Information not available 07/30/2022 Do you have difficulty doing errands alone? No Information not available 07/30/2022 Are you able to care for yourself independently? Yes Information not available 07/30/2022 Do you have difficulty dressing, bathing, grooming, or toileting? No Information not available 07/30/2022 What is your exercise level? Moderate Information not available 10/12/2022 Mental Status Question Answer Note LastModified by Organizat ion Details LastModified Time Do you feel stressed (tense, restless, nervous, or anxious, or unable to sleep at night)? [id number] Information not available 10/12/2022 Do you have [...] Not available 2021 13:43:34 Maternal Grandfather Malignant neoplasm of colon Not available 2021 13:43:34 Notes:*Procedure Description : Documented family medical history in mother*Relative: Mother *Procedure Description: Documented family medical history in father*Relative: Father *Procedure Description: Documented family medical history in sister*Relative: Sister *Procedure Description: Documented family medical history in brother*Relative: Brother *Procedure Description: Family medical history unremarkable*Relative: Unspecified Relation *Problem: Relative: ''; Medical History Condition Response Allergies (Food, seasonal, environmental ) N Other N Hyperthyroidism N Breast Cancer N Drug/Latex Allergies/Reactions N Blood Transfusion N Emergency room visit since last appointm ent. N Dermatologic Disorders N Lung Disease N Hypothyroidism N Defects or Inherited Disease N Breast Problem N Gestational Diabetes N Hematologic disorders N Anesthesia Complications N History of STI N Deep Vein Thrombosis N Polycystic ovary syndrome N Anxiety Disorder N Autoimmune disease N Vision or Eye Problems N Arthritis N Infertility N Polyps N Mental Disorder N Congenital Anomalies N Acid Reflux (GERD) N History of abnormal pap N Cancer N Stroke N Neurologic/Epilepsy N Endometriosis N High Cholesterol N Organ Transplant N Psychiatric/Mental Health Condition N Dialysis N Schizophrenia N Headaches N Fibromyalgia N Kidney Disease N Heart Problems N Hospitalizations N Kidney or Bladder Problems N Thyroid Problems N GI Problems N Acne N Eating Disorder N Anemia N Art (IVF or FET) N Mental Illness N Ovarian Cancer N Diabetes N Pulmonary (TB, Asthma) N Hepatitis/Liver Disease N Eczema N Abuse/Domestic Violence N Asthma N Trauma/Violence N Substance Abuse N Depression/ depression N Heart Disease N Pre-Eclampsia N Hypertension N Osteoporosis N Thrombophilias N Gynecological History Statement/Question Response Abnormal Pap N Flow Moderate Date of LMP 08/18/2022 On BCP's at Conception? N STIs/STDs N HPV Vaccine N Duration of Flow (days) 4 Current Control Method None Age at Menarche 12 Sexually Active? Y Menses Monthly Y Date of Last Pap Smear 07/01/2023 Sexual Problems? N LMP Approximate Obstetrics History GPAL:G 2 P 2 0 1 1 Type Value Multiple Births 0 Full Term 2 Induced 0 Spontaneous 1 Premature 0 Living 1 Ectopics 0 Total 2 Immunizations Vaccine Type Date Status Note Provider Nam e and Address Organization Details Recorded Time Hep A, ped/adol, 2 dose 8 completed CHAMP AGUSTIN [employer], [employer] 10/29/2022 16:31:30 HPV9 3 completed Not Available [facility] 07/21/2022 23:47:56 HPV9 4 completed Not Available [employer] 07/21/2022 23:47:57 MMR 2 completed Not Available [facility] 07/21/2022 23:47:57 MMR 6 completed Not Available [facility] 07/21/2022 23:47:57 IPV 2 completed Not Available [facility] 07/21/2022 23:47:57 IPV 1 completed Not Available [facility] 07/21/2022 23:47:57 IPV 6 completed Not Available [facility] 07/21/2022 23:47:57 IPV 1 completed Not Available [facility] 07/21/2022 23:47:57 Tdap 8 completed ADI THOMSON null, [employer] 05/04/2023 11:26:30 varicella 2 completed Not Available [facility] 07/21/2022 23:47:57 varicella 7 completed Not Available [facility] 07/21/2022 23:47:57 Hep B, adolescent or pediatric 1 completed Not Available [facility] 07/21/2022 23:47:57 Hep B, adolescent or pediatric 1 completed Not Available [facility] 07/21/2022 23:47:57 Hep B, adolescent or pediatric 1 completed [facility] 07/[facility] 23:47:58 DTaP, unspecified formulation 2 completed ADI THOMSON [employer], [employer] 05/04/2023 11:26:30 pneumococcal conjugate PCV 7 1 completed [place] 10/29/2022 16:31:30 COVID-19, mRNA, LNP-S, PF, 100 mcg/0.5mL dose or 50 mcg/0.25mL dose 1 completed [employer] 10/29/2022 16:31:30 pneumococcal conjugate PCV 7 1 completed [employer] 10/29/2022 16:31:30 Hib (PRP-T) 2 completed [employer] 10/29/2022 16:31:30 Td (adult), 2 Lf tetanus toxoid, preservative free, adsorbed 8 completed [employer] 10/29/2022 16:31:30 DTaP, 5 pertussis antigens 1 completed [employer] 10/29/2022 16:31:30 DTaP, 5 pertussis antigens 1 completed [facility] [employer] 10/29/2022 16:31:30 COVID-19, mRNA, LNP-S, PF, 100 mcg/0.5mL dose or 50 mcg/0.25mL dose 1 completed [employer] 10/29/2022 16:31:30 HPV, quadrivalent 2 completed [employer] 10/29/2022 16:31:30 Rho(D) -IG IM 0 completed [employer] 10/29/2022 16:31:30 DTaP, 5 pertussis antigens 1 completed CHAMP Tomveyi Bidamon null, [employer] 10/29/2022 16:31:30 DTaP, 5 pertussis antigens 2 completed [place] [employer] null, [employer] 10/29/2022 16:31:30 Meningococcal MCV4O 2 completed [place] Tomveyi Bidamon null, [employer] 10/29/2022 16:31:30 DTaP, 5 pertussis antigens 6 completed [place] Tomveyi Bidamon null, [employer] 10/29/2022 16:31:30 Hib (PRP-T) 1 completed [place] [employer], [employer] 10/29/2022 16:31:30 Tdap 2 completed [place] [employer] 10/29/2022 16:31:30 Hib (PRP-T) 1 completed [place] [employer], [employer] 10/29/2022 16:31:30 Hep A, adult 1 completed [place] [employer], [employer] 10/29/2022 16:31:30 pneumococcal conjugate PCV 7 1 completed [place] [employer], [employer] 10/29/2022 16:31:30 meningococcal MCV4P 8 completed [place] Tomveyi Bidamon null, [employer] 10/29/2022 16:31:30 Hib (PRP-T) 1 completed [place] [employer], [employer] 10/29/2022 16:31:30 Tdap 3 completed Praveena Webb MD [address] [place] [address], [phone], [employer] 03/05/2023 10:37:47 Past Encounters Encounter ID Performer Location Encounter Start Date Encounter Closed Date Diagnosis/Indication Diagnosis SNOMED-CT Code Diagnosis ICD10 Code Diagnosis IMO Codes Diagnosis Note [id number] Juanis Bryan [employer] [facility] [place] [id number] 3 07/30/2022 08:49:04 07/30/2022 09:29:05 Candidiasis of vagina 18930727 B37.3 [id number] Juanis Bryan [employer] [facility] [place] [id number] 3 09/02/2022 14:57:57 09/02/2022 16:12:51 Female infertility 3927960 N97.9 [id number] Juanis Bryan APRN [facility] [place] [id number] 3 10/12/2022 13:38:23 10/12/2022 14:59:23 Intrauterine 00665118 Z34.90 [id number] Juanis Bryan [facility] [place] [address] 10/29/2022 16:10:44 10/29/2022 17:29:25 [id number] Z33.1 screening 2437 39595 Z36.0 [id number] Praveena Webb MD [facility] [place] [id number] 3 12/04/2022 16:21:06 12/04/2022 17:56:04 [id number] Z33.1 Blood grou p O Rh(D) negative 769512943 Z67.41 Nausea and vomiting 1691999 R11.2 [id number] Juanis Bryan [facility] [address] [place] [address] 01/01/2023 13:35:09 01/01/2023 14:35:55 [id number] Z33.1 [id number] GAIL LEZAMA MD [facility] [address] [place] [address] 3 01/18/2023 15:44:52 01/20/2023 13:43:56 Intrauterine 95309824 Z34.92 [id number] [facility] [address] [address] [place], [place] [address] 02/03/2023 13:59:18 02/03/2023 15:53:53 [id number] Z33.1 verb report from [facility] is that anatomy scan is complete and normal [id number] GAIL LEZAMA MD [facility] [address] [place], [place] [address] 02/17/2023 15:47:53 02/18/2023 15:30:09 Intrauterine 68523504 Z34.92 [id number] Z33.1 [id number] Praveena Webb MD [facility] [address] [place], [place] [address] 03/05/2023 08:37:58 03/05/2023 09:35:02 Normal in primigravida [id number] 88151 Z34.02 Routine an tenatal care 720001793 Z34.92 [id number] Parveena Webb MD [facility] [address] [place], [place] [address] 03/10/2023 14:35:25 03/10/2023 15:48:00 Intrauterine 75377251 Z34.92 Hydronephrosis 63970505 N13.30 Renal angl e tenderness 694505044 R10.829 Nausea and vomiting 1693 1999 R11.2 [id number] Juanis Bryan APRN [facility] [address] [place], [place] [address] 03/19/2023 09:22:28 03/19/2023 09:52:24 [id number] Z33.1 support 40 6378373 Z39.1 Hydronephrosis 16810092 N13.30 [id number] Praveena Webb MD [facility] [address] [place] [address] 04/01/2023 14:15:57 04/01/2023 15:48:43 [id number] Z33.1 Blood in urine 42027153 R31.9 Headache 49369663 R51.9 Elevated blood-pressure reading without diagnosis of hypertension 516311492 R03.0 [id number] Praveena Webb MD [facility] [address], [place] [address] 04/16/2023 09:22:19 04/16/2023 10:51:09 [id number] Z33.1 Reduced fe brianna movement 530429524 O36.8199 [id number] Praveena Webb MD [facility] [address], [place] [address] 04/22/2023 13:42:12 04/22/2023 16:52:36 [id number] Z33.1 History of removal of calculus of renal pelvis through percutaneous nephrostomy 2548114101 [id number] Z87.785 [id number] [facility] [address] [address], [place] [address] 04/28/2023 10:45:17 04/28/2023 13:34:53 [id number] Z33.1 [id number] Britt Last CNM [facility] [address], [place] [address] 05/04/2023 11:03:28 05/04/2023 12:02:55 [id number] Z33.1 [id number] Juanis Bryan [facility] [address], [place] [address] 05/07/2023 09:39:42 05/07/2023 10:59:29 [id number] Z33.1 [id number] Praveena Webb MD [facility] [address], [place] [address] 05/13/2023 09:20:12 05/13/2023 10:24:30 Intrauterine 13181057 Z34.90 High risk 4720 0007 O09.93 [id number] Praveena Webb MD [facility] [address] [place] [address] 06/10/2023 10:16:13 06/10/2023 11:06:36 care [id number] Z39.2 [id number] Praveena Webb MD [facility] [address] [place] [address] 07/01/2023 09:57:34 07/01/2023 11:51:53 Insertion of intrauterine contraceptive device 26947520 Z30.430 Screening for malignant neoplasm of cervix 005827471 Z12.4 [id number] Praveena Webb MD [facility] [address] [place] [address] 08/26/2023 15:20:35 08/26/2023 16:01:06 [id number] Juanis Bryan [employer] [facility] [address] [place] [address] 03/29/2025 12:53:25 03/30/2025 15:55:58 Removal of intrauterine contraceptive device 5826159081 Z30.432 687681 [id number] Juanis Bryan [facility] [place] [id number] 07/27/2025 13:02:37 07/27/2025 13:36:52 Infertility study 94913770 Z31.41 [id number] Health Concerns Section Related Observation LastModified by Organization Detai ls LastModified Time None Recorded Concern Status LastModified by Organization Details LastModified Time None Recorded Advance Directives Directive N: Payers Insurance Date Sequence Insurance Name Policy Number Policy Herring Covered Member ID Herring Member ID Guarantor Name 07/30/2025 1 [place] [id number] A Trevor Buckley [id number] Hitesh Buckley 01/06/2023 2 [facility] [place]ICA[place]MO[place] Hitesh Rebolledo [id number] Hitesh Buckley 07/30/2022 1 *SELF PAY* Al janee Buckley Notes Date Note Type Note Provider Name and Address Organization Details Recorded Time 06/10/2023 text/html VisitReported by PatientHPIFor quality, patient reportsnsvd. For context, patient reportsno complications,feedin g choice: breast and bottle,good support from partner/family, andresumed sexual activity no(pumping). For associated symptoms, patient reportsno abnormal bleeding,no vaginal discharge,no pelvic pain,laceration well healed,no constipation,no fecal incontinence,no dysuria,no urinary incontinence,no fever,no problems,no mastitis,normal mood, andno uterine cramping.ROS as noted in the HPI 23 yo G2 now P1011 presents for routine care, status post vaginal delivery 3 weeks ago. She had her PERC neph tube right-sided severe hydronephrosis removed at under fluro. Normal lochia. Plans for Paragard. EPDS = 4. Praveena Webb MD [address] [place] [address], [phone], [employer] 06/10/2023 11:01:22 07/01/2023 text/html VisitReported by PatientNumedeonIFgiddy, patient reportsnsvd. For context, patient reportsno complications,feedin g choice: breast,good support from partner/family, andresumed sexual activity no(pumping). For associated symptoms, patient reportsno abnormal bleeding,no vaginal discharge,no pelvic pain,laceration well healed,no constipation,no fecal incontinence,no dysuria,no urinary incontinence,no fever,no problems,no mastitis,normal mood, andno uterine cramping. For contraception plan, patient reportsiud copper.ROS as noted in the HPI 23 yo G2 now P1011 presents for routine care, status post vaginal delivery 6 weeks ago. She had her PERC neph tube right-sided severe hydronephrosis removed at under fluro. Normal lochia. Plans for Paragard. EPDS = 4---> 3. She is still breast-feeding and pumping. Praveena Webb MD [address] [place] [address], [phone], [employer] 07/05/2023 14:52:38 08/26/2023 text/html VisitReported by PatientHPIFor quality, patient reportsnsvd. For context, patient reportsno complications,feedin g choice: breast,good support from partner/family, andresumed sexual activity no(pumping). For associated symptoms, patient reportsno abnormal bleeding,no vaginal discharge,no pelvic pain,laceration well healed,no constipation,no fecal incontinence,no dysuria,no urinary incontinence,no fever,no problems,no mastitis,normal mood, andno uterine cramping. For contraception plan, patient reportsiud copper.ROS as noted in the HPI 23 yo presents for IUD string check, with Paragard. PHQ= 0. She is still breast-feeding and pumping. Amenorrheic. Praveena Webb MD [address] [place], [phone], [employer] 08/26/2023 15:51:08 03/29/2025 text/html Annual GYNReport ed by PatientROS as noted in the HPI Pt presents for removal of her paragard. She is planning to TTC. We discussed starting PNV. Pap UTD. Nml bowel and bladder function, mood is stable. No other complaints or concerns. Juanis Bryan APRN [address] [place], [phone], [employer], [employer] 03/29/2025 13:52:37 07/27/2025 text/html ROS as noted in the HPI Pt presents to discuss TTC. She has been TTC for the last 4 months. She is having IC every other day and her periods are regular. She reports she has not done any OPKs. We discussed getting 21d labs. She states it took her 2 years to conceive last time. No h/o infertility issues. This is the same partner. Juanis Bryan APRN [address] [place], [phone], [employer] 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 10/12/20 22 1 O Negative 137.2 Denis White CLOSED Fetus Data First Name Last Name Admitted to NICU Weight (g) Sex Living Outcome Pediatric Complications Fetus ID Race Codes Race Delivery Type Killian castro 2948.34 8 M Full Term 2060 2130-1 Other Race Vaginal Delivery Problems Problem Notes S/p genetic counseling @ [facility] eclines contraceptionPlans to pump Problem Name Start Date End Date Resolution Snomed Code Not e Hydronephrosis 03/10/2023 85270926 S/p PERC neph tube until delivery by urology, will d/c , taking muscle relaxer prn, MFM recommended delivery @ 38 weeks RhD negative MEDICATION 229933541 S/p Rh ogam @ 28 weeks (03/05/23) 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; s/p genetic counseling [...] Latest Days Gestation 0 [email or web address] 10/29/2022 06/03/20 0 Pre-brittney Flowsheet Flowsheet Date 10/12/2022 Beth Score Blood Edema Fundus Height Fundus Units Glucose Ketones Leukocytes Nitrite Labor Signs Protein Cervic Dilation Cervic Effacement Cervic Station none Type Weight in lbs Pre/Post Dialysis Refused Weight 137.236612472370 BP Diastolic BP Location Tested BP Systolic [...] Weight in lbs Pre/Post Dialysis Refused Weight 132.841487201032 BP Diastolic BP Location Tested BP Systolic [...] Weight in lbs Pre/Post Dialysis Refused Weight 131.70562222301 BP Diastolic BP Location Tested BP Systolic BP Type 68 120 Fetus Heart Rate Present A 148 Present Fetus Movement A Yes Comments Flowsheet Date 01/01/2023 Beth Score Blood Edema Fundus Height Fundus Units Glucose Ketones Leukocytes Nitrite Labor Signs Protein Cervic Dilation Cervic Effacement Cervic Station none none none neg Type Weight in lbs Pre/Post Dialysis Refused Weight 131.145724859835 BP Diastolic BP Location Tested BP Systolic BP Type 64 108 Fetus Heart Rate Present A 143 Fetus Movement A Yes Comments Doing well. Anatomy in 2 wee ks. 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 but doubts she will do Flowsheet Date 02/17/2023 Beth Score Blood Edema Fundus Height Fundus Units Glucose Ketones Leukocytes Nitrite Labor Signs Protein Cervic Dilation Cervic Effacement Cervic Station none 25 none none neg Type Weight in lbs Pre/Post Dialysis Refused Weight 142.362302914290 BP Diastolic BP Location Tested BP Systolic [...] Weight in lbs Pre/Post Dialysis Refused Preoperative 147.114604534761 BP Diastolic BP Location Tested BP Systolic [...] in lbs Pre/Post Dialysis Refused With clothes 149.882566744335 BP Diastolic BP Location Tested BP Systolic BP Type 60 L arm 120 sitting Fetus Heart Rate Present A Present Fetus Movement A Yes Comments Was seen in the ER and had s evere right hydronephrosis on US. Given [place]. Flowsheet Date 03/19/2023 Beth Score Blood Edema Fundus Height Fundus Units Glucose Ketones Leukocytes Nitrite Labor Signs Protein Cervic Dilation Cervic Effacement Cervic Station none none none neg Type Weight in lbs Pre/Post Dialysis Refused With clothes 149.266110431907 BP Diastolic BP Location Tested BP Systolic BP Type 68 L arm 122 sitting Fetus Heart Rate Present A 135 Fetus Movement A Yes Comments Pt was seen in the ER at [facility] and found to have severe hydronephrosis with obstruction. The soonest she was able to get into urology was then end of April. She called to see if she could get an earlier appt and was advised to go to [facility] ER if the pain was unbearable. She plans on possibly going tomorrow. UA neg for blood. She has no other complaints. Flowsheet Date 04/01/2023 Beth Score Blood Edema Fundus Height Fundus Units Glucose Ketones Leukocytes Nitrite Labor Signs Protein Cervic Dilation Cervic Effacement Cervic Station none 31 cm none Backpain 1+ Type Weight in lbs Pre/Post Dialysis Refused Weight 149.913704348732 BP Diastolic BP Location Tested BP Systolic BP Type 80 120 Fetus Heart Rate Present A 135 Present Fetus Movement A Yes Comments Will check labs and send uri ne for culture, Large blood on voided specimen. Schedule growth US. Flowsheet Date 04/16/2023 Beth Score Blood Edema Fundus Height Fundus Units Glucose Ketones Leukocytes Nitrite Labor Signs Protein Cervic Dilation Cervic Effacement Cervic Station none 30 cm none none neg Type Weight in lbs Pre/Post Dialysis Refused With clothes 154.376444178742 BP Diastolic BP Location Tested BP Systolic [...] Weight in lbs Pre/Post Dialysis Refused Weight 151.959831281766 BP Diastolic BP Location Tested BP Systolic BP Type 64 102 Fetus Heart Rate Present A 125 Present Fetus Movement A Yes Comments Flowsheet Date 04/28/2023 Beth Score Blood Edema Fundus Height Fundus Units Glucose Ketones Leukocytes Nitrite Labor Signs Protein Cervic Dilation Cervic Effacement Cervic Station none none none neg Type Weight in lbs Pre/Post Dialysis Refused With clothes 154.007232821322 BP Diastolic BP Location Tested BP Systolic BP Type 70 L arm 108 sitting Fetus Heart Rate Present Fetus Movement A Yes Comments Pt was scheduled to see tamra ENGLISH today for u/s and consult regarding 37 wk IOL d/t alexandra perc neph tubes and the frequency of which they are needing to be replaced. She declined however d/t cost. Dr. [facility] Flowsheet Date 05/04/2023 Beth Score Blood Edema Fundus Height Fundus Units Glucose Ketones Leukocytes Nitrite Labor Signs Protein Cervic Dilation Cervic Effacement Cervic Station none none Cramping neg 1cm 50% - 2 Type Weight in lbs Pre/Post Dialysis Refused Weight 157.907096180994 BP Diastolic BP Location Tested BP Systolic [...] Weight in lbs Pre/Post Dialysis Refused Weight 155.677578851286 BP Diastolic BP Location Tested BP Systolic BP Type 88 130 Fetus Heart Rate Present A 135 Fetus Movement A Yes Comments Doing well. 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 GBS and labs today. Scheduled for IOL on 05/20. Started her maternity leave. Flowsheet Date 05/13/2023 Beth Score Blood Edema Fundus Height Fundus Units Glucose Ketones Leukocytes Nitrite Labor Signs Protein Cervic Dilation Cervic Effacement Cervic Station none 36 cm none none neg 3cm 80% -2 Type Weight in lbs Pre/Post Dialysis Refused With clothes 156.74166427239 BP Diastolic BP Location Tested BP Systolic BP Type 60 100 Fetus Heart Rate Present A 153 Present Fetus Movement A Yes Comments IOL @ 38 weeks per MFM. Stephanie ng some contractions, was seen in triage. Reports frequent yeast infections and self treats at home with Monistat. She is scheduled for a cap trial at . Flowsheet Date 06/10/2023 Beth Score Blood Edema Fundus Height Fundus Units Glucose Ketones Leukocytes Nitrite Labor Signs Protein Cervic Dilation Cervic Effacement Cervic Station Type Weight in lbs Pre/Post Dialysis Refused Weight 143.899252612400 BP Diastolic BP Location Tested BP Systolic BP Type 74 116 Fetus Heart Rate Present Fetus Movement Comments Flowsheet Date 07/01/2023 Beth Score Blood Edema Fundus Height Fundus Units Glucose Ketones Leukocytes Nitrite Labor Signs Protein Cervic Dilation Cervic Effacement Cervic Station Type Weight in lbs Pre/Post Dialysis Refused With clothes 140.815321103406 BP Diastolic BP Location Tested BP Systolic [...] At Estimated Date of Delivery false Thalassemia (Salvadorean, Maltese, Mediterranean, Or Background): MCV < 80 false Neural Tube Defect (Meningom yelocele, Spina Bifida, Or Anencephaly) false Congenital Heart Defect false Down Syndrome false Duke-Sachs (eg, Tenriism, Cajun, Filipino-Holt) f alse Rgaeme Disease false Sickle Cell Disease Or Trait () false Hemophilia Or Other Blood Disorders false Muscular Dystrophy false Cystic Fibrosis false Hale's Chorea false Intellectual Disability/Autism false If Yes, [...] Method Maternal HG B and HCT Levels Breast"
--- OUTSIDE RECORDS SUMMARY | 2025-08-30 11:13 | XMS_ITS | Continuity of Care Document ---
Author Organization [facility], [facility] Address [address] [place] [address] Care Team Providers Care Shoe Trimmer Name Role Phone NATALIA GERARD Primary Care Provider Assessment No assessment recorded. Plan of Treatment Reminders Order Date Submit Date Provider Last Modified By Organization Details Last Modified Time Details Appointments None record ed. Lab None record ed. Referral None record ed. Procedures None record ed. Surgeries None record ed. Imaging None record ed. Medication Orders None record ed. Patient TargetsNo targets recorded. Patient Instructions Encounter Date Encounter Id Patient Instructions Last Modified By Organization Details Last Modified Time 07/27/2025 [id number] learning about infertility testing [email or web address] Not available 07/27/2025 13:34:33 Reason for Referral None Reported. Problems Name Problem SNOMED Code Status Onset Date Resolution Date Notes Provider Name and Address Organization Details Recorded Time RhD negative [id number] Completed S/p Rhogam @ 28 weeks (03/05/23 ) Melanie wilhelm, [employer] 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 FOB carrier testing negative Melanie wilhelm, [employer]. 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 FOB carrier testing negative Melanie wilhelm, [employer] 3 10:56:38 RhD negative 421317219 Active S/p Rhogam @ 28 weeks (03/05/23 ) Melanie wilhelm, [employer] 3 10:56:38 Normal pregnanc y in primigra ishmael 68283543387 4103 Completed 201907/30/2022 Juanis Bryan, OPERATIONS LEADER [address] [place] [address], [address] [place] [address] , [employer] 2 09:33:24 Gestatio n period, 9 weeks 852402 Completed 201907/30/2022 Problem Code: Z3A.09; Problem Code Type: ICD-10; Removal Reason: resolved Juanis Bryan, OPERATIONS LEADER [address] [place] [address], [place], [place], [address] [place] [address] , [employer] 2 09:32:54 Blighted ovum 04241081 Completed 201907/30/2022 Problem Code: O02.0; Problem Code Type: ICD-10; Removal Reason: resolved Juanis Bryan, OPERATIONS LEADER [address] [place] [address], [place], [address] [place] [address] , [employer] 2 09:32:33 Miscarri age without complica tion 33950606 Completed 201907/30/2022 Problem Code: O03.4; Problem Code Type: ICD-10; Juanis Bryan, OPERATIONS LEADER [address] [place] [address], [place], [address] [place] [address] , [employer] 2 09:33:19 Fragile X chromoso me 638296717 Active 2019 Problem Code: Q99.2; Problem Code Type: ICD-10; Not Available [facility] 2 21:11:13 Blood group O Rh(D) negative 838264940 Active 2019 Problem Code: Z67.41; Problem Code Type: ICD-10; Not Available [facility] 2 21:11:14 Uses depot contrace ption 946090118 Completed 201907/30/2022 Removal Reason: STACEY Bryan APRN [address] [place] [address], [address] [place] [address] , [employer] 2 09:33:11 Surveill ance of contrace ption Completed 202007/30/2022 Juanis Bryan APRN [address] [place] [address], [address] [place] [address] , [employer] 2 09:33:30 Uses combined oral contrace ption 141923771 Completed 202007/30/2022 Problem Code: Z30.011; Problem Code Type: ICD-10; Removal Reason: STACEY Bryan APRN [address] [place] [address], [address] [place] [address] , [employer] 2 09:32:44 Pelvic and perineal pain 912174682 Completed 202107/30/2022 Problem Code: R10.2; Problem Code Type: ICD-10; Juanis Bryan APRN [address] [place] [address], [address] [place] [address] , [employer] 2 09:33:34 Pregnanc y 85368381 Completed 202107/01/2023 Melanie wilhelm [employer] 3 10:56:48 Nausea and vomiting 60385088 Active 2021 Juanis Bryan APRN [address] [place] [address], [phone] , [employer] 2 17:09:08 Hydronep hrosis 27284625 Active 2022 S/p PERC neph tube until delivery by urology, will d/c postpart um, taking muscle relaxer prn, MFM recommen ded delivery @ 38 weeks Melanie wilhelm, [employer] 3 10:56:38 Renal angle tenderne ss 739547746 Active 2022 Praveena Webb MD [address] [place] [address], [phone] , [employer] 3 15:42:05 Hydronep hrosis 06611298 Completed 2022 S/p PERC neph tube until delivery by urology, will d/c postpart um, taking muscle relaxer prn, MFM recommen ded delivery @ 38 weeks Melanierodolfo Weathers null, [employer] 3 10:56:38 Blood in urine 71832196 Active 2022 Praveena Webb MD [address] [place] [address], [address] [place] [address] , [employer] 3 15:18:43 Headache 04818094 Active 2022 Praveena Webb MD [address] [place] [address], [address] [place] [address] , [employer] 3 15:32:57 Reduced movement 179355904 Active 2022 Praveena Webb MD [address] [place] [address], [phone] , [place] [employer] 3 10:05:33 Anemia of pregnanc y 01839741 Active 2022 Juanis Bryan APRN [address] [place] [address], [address] [place] [address] , [employer] 3 11:03:22 High risk pregnanc y 46530555 Active 2022 Praveena Webb MD [address] [place] [address], [address] , [place] [employer] 3 09:42:00 Candidia sis of vagina 15597354 Active 2022 Praveena Webb MD [address] [place] [address], [address] , [employer] 3 06:31:11 Female infertil ity 3464513 Active 2024 Juanis GallowayPANTERA black [address] [place], [address] , [employer] 16:47:25 Problem Notes None recorded. Procedures Surgical History Date Name Laterality Status Provider Name and Address Organization Details Recorded Time 03/29/20 25 IUD Removal completed Juanis PANTERA Bryan [address] [place], [address], [employer] 03/29/2025 13:51:06 07/01/20 23 IUD Insertion completed Praveena Webb MD [address] [place] [address], [phone], [employer] 07/01/2023 10:54:03 07/01/20 23 Date of Last Pap Smear completed Francine Peralta [employer] 03/29/2025 12:55:56 04/16/20 23 NST completed Praveena Webb MD [address] [place] [address], [phone], [employer] 04/16/2023 10:06:32 12/13/19 21 dilation and curettage completed Not Available [facility] 07/21/2022 22:56:17 Dilation and Curettage completed [employer] 10/12/2022 13:43:46 percutaneous insertion of nephrostomy tube completed [employer] 04/16/2023 09:42:16 Imaging Results None recorded. [...] completed Not Available Not Available Not Available [facility] a 06/05 completed Not Available Not Available [...] Available Not Available Vitals Date Recorded Body height Body mass index (BMI) Body weight Heart rate Oxygen saturation Oxygen saturation in Arterial blood by Pulse oximetry Systolic And Diastolic Provider Name and Address Organization Details Last Updated DateTime 5 167.64 cm 24.2 kg/m2 60369.8 6 g 74 /min 99 % 99 % 112/62 mm[Hg] Francine Peralta [facility] [employer] 13:06:10 Social History Question Answer Notes LastModified by Organizat ion Details LastModified Time Tobacco Smoking Status Never Smoker SocialHis toryQuest ion: 'Tobacco/ Alcohol/S upplement s'; SocialHis toryRespo nse: 'Never Smoker'; Not Available [facility] 07/21/2022 22:55:35 Do You Have An Advance [...] not available 10/12/2022 Who Is Your Employer? [employer] Department [email or web address] Information not available 09/02/2022 How Many Days [...] Do You Have A Medical Power Of Medical Record Specialist? No Information not available 07/30/2022 What Was The Date Of Your Most Recent Tobacco Screening? 07/27/2025 [email or web address] Information not available 07/23/2025 Do You Have [...] Has Tobacco Cessation Counseling Been Provided? No [email or web address] Information not available 03/29/2025 Have You Recently Traveled Abroad? No Information not available 04/16/2023 Do You Have Difficulty Walking Or Climbing Stairs? No Information not available 07/30/2022 Are You Currently In School? No Information not available 07/30/2022 Sex: Female Functional Status Question Answer Note LastModified by [employer] Details LastModified Time Do you use any illicit or recreational drugs? No Information not available 10/12/2022 Do you or have you ever used any other forms of tobacco or nicotine? No [email or web address] Information not available 03/29/2025 Are you currently [...] Mental Status Question Answer Note LastModified by [employer] Details LastModified Time Do you feel stressed (tense, restless, nervous, or anxious, or unable to sleep at night)? [id number] Information not available 10/12/2022 Do you have [...] environmental ) N Other N Hyperthyroidism N Blood Transfusion N Drug/Latex Allergies/Reactions N Breast Cancer N Emergency room visit since last appointm ent. N Hypothyroidism N Lung Disease N Dermatologic Disorders N Defects or Inherited Disease N Breast Problem N Gestational Diabetes N Hematologic disorders N Anesthesia Complications N History of STI N Deep Vein Thrombosis N Polycystic ovary syndrome N Anxiety Disorder N Autoimmune disease N Vision or Eye Problems N Arthritis N Polyps N Infertility N Mental Disorder N Congenital Anomalies N Acid Reflux (GERD) N History of abnormal pap N Cancer N Stroke N Neurologic/Epilepsy N Endometriosis N High Cholesterol N Organ Transplant N Psychiatric/Mental Health Condition N Fibromyalgia N Schizophrenia N Dialysis N Headaches N Kidney Disease N Heart Problems N Hospitalizations N Thyroid Problems N Kidney or Bladder Problems N GI Problems N Acne N Eating Disorder N Anemia N Art (IVF or FET) N Mental Illness N Diabetes N Ovarian Cancer N Pulmonary (TB, Asthma) N Hepatitis/Liver Disease [...] A, ped/adol, 2 dose 8 completed CHAMP VELEZ null, [employer] 10/29/2022 16:31:30 HPV9 3 completed Not Available [facility] 07/21/2022 23:47:56 HPV9 4 completed Not Available [facility] 07/21/2022 23:47:57 MMR 2 completed Not Available [facility] 07/21/2022 23:47:57 MMR 6 completed Not Available [facility] 07/21/2022 23:47:57 IPV 2 completed Not Available [facility] 07/21/2022 23:47:57 IPV 1 completed Not Available [facility] 07/21/2022 23:47:57 IPV 6 completed Not Available [facility] 07/21/2022 23:47:57 IPV 1 completed Not Available [facility] 07/21/2022 23:47:57 Tdap 8 completed ADI THOMSON null, [employer] 05/04/2023 11:26:30 varicella 2 completed Not Available [facility] 07/21/2022 23:47:57 varicella 7 completed Not Available [facility] 07/21/2022 23:47:57 Hep B, adolescent or pediatric 1 completed Not Available [facility] 07/21/2022 23:47:57 Hep B, adolescent or pediatric 1 completed Not Available [facility] 07/21/2022 23:47:57 Hep B, adolescent or pediatric 1 completed Not Available [facility] 07/21/2022 23:47:58 DTaP, unspecified formulation 2 completed ADI THOMSON null, [employer] 05/04/2023 11:26:30 pneumococcal conjugate PCV 7 1 completed [facility] [employer] 10/29/2022 16:31:30 COVID-19, mRNA, LNP-S, PF, 100 mcg/0.5mL dose or 50 mcg/0.25mL dose 1 completed [facility] [employer] 10/29/2022 16:31:30 pneumococcal conjugate PCV 7 1 completed [facility] [employer] 10/29/2022 16:31:30 Hib (PRP-T) 2 completed [facility] [employer] 10/29/2022 16:31:30 Td (adult), 2 Lf tetanus toxoid, preservative free, adsorbed 8 completed [facility] [employer] 10/29/2022 16:31:30 DTaP, 5 pertussis antigens 1 completed [facility] [employer] 10/29/2022 16:31:30 DTaP, 5 pertussis antigens 1 completed [facility] [employer] 10/29/2022 16:31:30 COVID-19, mRNA, LNP-S, PF, 100 mcg/0.5mL dose or 50 mcg/0.25mL dose 1 completed [facility] [employer] 10/29/2022 16:31:30 HPV, quadrivalent 2 completed [facility] [employer] 10/29/2022 16:31:30 Rho(D) -IG IM 0 completed [facility] [employer] 10/29/2022 16:31:30 DTaP, 5 pertussis antigens 1 completed [facility] [employer] 10/29/2022 16:31:30 DTaP, 5 pertussis antigens 2 completed [facility] [employer] 10/29/2022 16:31:30 Meningococcal MCV4O 2 completed [facility] [employer] null, [employer] 10/29/2022 16:31:30 DTaP, 5 pertussis antigens 6 completed [facility] [employer] null, [employer] 10/29/2022 16:31:30 Hib (PRP-T) 1 completed [facility] [employer] null, [employer] 10/29/2022 16:31:30 Tdap 2 completed [facility] [employer] null, [employer] 10/29/2022 16:31:30 Hib (PRP-T) 1 completed [facility] [employer], [employer] 10/29/2022 16:31:30 Hep A, adult 1 completed [facility] [employer], [employer] 10/29/2022 16:31:30 pneumococcal conjugate PCV 7 1 completed [facility] [employer], [employer] 10/29/2022 16:31:30 meningococcal MCV4P 8 completed [facility] [employer], [employer] 10/29/2022 16:31:30 Hib (PRP-T) 1 completed [facility] [employer], [employer] 10/29/2022 16:31:30 Tdap 3 completed Praveena Webb MD [address] [place] [address], [phone], [employer] 03/05/2023 10:37:47 Past Encounters Encounter ID Performer Location Encounter Start Date Encounter Closed Date Diagnosis/Indication Diagnosis SNOMED-CT Code Diagnosis ICD10 Code Diagnosis IMO Codes Diagnosis Note [id number] Juanis Bryan APRN [facility] sary [address] [place], [place] [address] [address] 07/27/2025 13:02:37 07/27/2025 13:36:52 Infertility study [id number] Z31.41 [id number] Health Concerns Section Related Observation LastModified by Organization Detai ls LastModified Time None Recorded Concern Status LastModified by Organization Details LastModified Time None Recorded Payers Encounter Date Sequence Insurance Name Policy Number Policy Herring Covered Member ID Herring Member ID Guarantor Name 07/27/2025 1 [facility] (PP[facility] [id number] A Trevor Brown Ina [id number] Hitesh Abdul Ina Notes Date Note Type Note Provider Name and Address Organization Details Recorded Time 07/27/2025 text/html ROS as noted in the [...] issues. This is the same partner. Juanis Bryan, PANTERA [address] [facility], [place], [address], [facility] [employer] 07/27/2025 13:34:50 OBGyn Episode No OBEpisode recorded.
--- OUTSIDE RECORDS SUMMARY | 2025-08-30 11:13 | XMS_ITS | Clinical Summary ---
Author Organization Healthcare Address [address] [place] [address] Care Team Providers Care Computer Network Engineer Name Role Phone OlsonChery anderson Savanna MOTT Primary Care Provider [phone] Allergies No known active allergies Medications ondansetron [...] drink first t alyssa in the morning (EYE-COST SPECIALIST) to steady your nerves or to get [...] [facility]-Pap Smear 2022 [facility]-Depression Screening 04/07/2024 04/07/2023 [id number] Vaccine ( season) 2025 04/04/2021, 03/06/2021 [facility]-Influenza [...] [place] [address] [place] [address] [place] [address] [place] [id number] ANTHWIL Advance Directives * Full Code (Latest Code Status on File) Date Activated Date Inactivated Comments 03/21/2023 12:42 AM 03/25/2023 2:58 PM Question Answer Comments Patient has decision-making capacity? Yes Care Teams Computer Network Engineer Relationship Specialty Start Date End Date Chery Olson APRN [address] [place] [address] PCP - General 03/26/23
== END 2025-08-29 23:59 ==
LOC: LAB.DROPOF 08-30 11:08
PROVIDERS: PCP Nurse Practitioner Family; Visit Provider Nurse Practitioner Family
DX: D50.9 Iron deficiency anemia, unspecified (principal); R79.89 Other specified abnormal findings of blood chemistry
CPT/HCPCS: 82607; 82728; 83540; 83550; 85025

== ENCOUNTER 2025-10-23 14:37 | Emergency (ER) | payer BC, SELFPAY ==
[2025-10-23 14:47] VITALS: BP 106/59; PULSE 72; RESP 16; TEMP 36.6; O2SAT 98; BMI 24.2
--- NOTE | 2025-10-23 15:47 | HMH.EDGENADL ---
Discharge Plan Disposition Patient Disposition: Home, Self-Care Condition: Good Prescriptions Prescriptions: No Action labetalol 200 mg tablet 400 mg PO BID 30 Days Qty: 120 5RF Pro Fe 180 mg iron capsule 180 mg PO DAILY Gummies 400 mcg-35 mg- 25 mg-5 mg tablet,chewable 2 tab PO DAILY polyethylene glycol 3350 [Miralax] 17 gram/dose powder 17 g PO DAILY Qty: 238 0RF calcium citrate-vitamin D3 [Citracal Regular] 250 mg-5 mcg (200 unit) tablet 1 tab PO DAILY Qty: 30 0RF Referrals Follow up/Referrals: Vita Andre APRN [Primary Care Provider, Medical] - See instructions Activity Restrictions/Add. Instructions Additional Instructions/Restrictions: If your nose bleed starts again, blow out the clots, use two sprays of afrin and put a plug on it. Return if the bleeding does not stop in one hour. Follow-up with ENT. Clinical Impressions Clinical Impression: Anterior epistaxis Instructions Patient Instructions: DI for Nosebleed Print Language Print Language: Estonian Discharge ED Provider: Jimenez Self Adult HPI General Chief complaint: Epistaxis Stated complaint: nose bleed periodically for the last 2 days anemic Time Seen by Provider: 10/23/25 15:46 Mode of Arrival: Wheelchair Source of Information: Patient Description of Symptoms (Recalled from ER Triage Doc. by RN): pt has been experiencing nose bleeds for the last two days. Currently approx 7-8 weeks . send from pcp History of Present Illness HPI narrative: Patient is a 25-year-old female who is currently who presents to the emergency department with epistaxis. Patient states that she has had 9 nosebleeds over the last couple days. Patient does have a history of iron deficiency anemia. Patient states that her nosebleeds will typically stop after about 30 minutes. Patient was at her primary care provider when she had a nosebleed that lasted for about 45 minutes. They state that they called ENT upstairs and they recommended that they come to the emergency department for Rhino Rocket and would be seen in 4 days for it to be removed. Patient states that she has been having intermittent nosebleeds but denies any history of any blood disorders. Patient has no history of clotting disorders. Patient denies any other bleeding or bruising. Related Data Home Medications ?Medication ?Instructions ?Recorded ?Confirmed polysaccharide iron complex 180 mg 180 mg PO DAILY 08/27/25 10/23/25 iron capsule (Pro Fe) PNV 153-FA 400 mcg-om3 35 mg-dha 2 tab PO DAILY 10/23/25 10/23/25 25 mg-epa 5 mg-fish oil chew tablet ( Gummies) Previous Rx's ?Medication ?Instructions ?Recorded labetalol 200 mg tablet 400 mg (2 x 200 mg) PO BID 30 days 07/24/25 #120 tabs calcium 250 mg (as 1 tab PO DAILY #30 tabs 08/07/25 citrate)-vitamin D3 5 mcg (200 unit) tablet (Citracal Regular) polyethylene glycol 3350 17 17 g PO DAILY #238 grams 08/07/25 gram/dose oral powder (Miralax) Allergies Allergy/AdvReac Type Severity Reaction Status Date / Time No Known Allergies Allergy Verified 10/23/25 13:46 [facility] Disclaimer: The information contained in this section may have been updated after the patient was seen, as this information can be updated by other users. Medical History Dizziness Dyspnea on exertion Episode of syncope Exposure to COVID-19 virus Fatigue Hordeolum of left eye Hydronephrosis of right kidney severe hydronephrosis with proximal hydroureter Inappropriate sinus tachycardia Nausea POTS (postural orthostatic tachycardia syndrome) with 27 completed weeks gestation Renal colic on right side Right flank pain RUQ abdominal pain Tachycardia Surgical History History of nephrostomy History of placement of ear tubes History of wisdom tooth extraction Family History Grandmother Colon cancer Social History (Updated 10/23/25 @ 14:00 by Breanne Nguyen CMA) Smoking Status: Current every day smoker tobacco type: e-cigarettes smoking status start date: 19yo smoking status stop date: 08/2025 how long ago did patient quit smokin mo alcohol intake: former year quit: 2024 substance use type: denies use current occupational status: employed Travel in the last 8 weeks?: None Have you lived/traveled outside [place] in past 30 days?: No Contact w/someone who lives/traveled outside US past 30 days?: No Exposure to someone with infectious disease in past 14 days?: No Do you have a fever (greater than 100.4 F or 38 C)?: No Have you tested positive for COVID-19?: No Exposed to someone with COVID-19 in past 14 days?: No Do you have a sore throat?: No Do you have a cough?: No Do you have any weakness?: No Do you have any diarrhea?: No Are you experiencing any unusual bleeding?: No Do you have any muscle aches/pain?: No Do you have any abdominal pain?: No Are you experiencing loss of taste or smell?: No Other Medical History Have you received the Flu Vaccine for this season: No Have you received the Pneumonia Vaccine: No ROS Obtained: Yes All systems reviewed & no additional complaints except as documented and Yes Systems reviewed as appropriate & no additional complaints except as documented Physical Exam General General appearance: alert and in no apparent distress Head Head exam: atraumatic, normocephalic and normal inspection Eye Eye exam: Present normal appearance, PERRL and EOMI; Absent scleral icterus ENT ENT exam: Present normal exam, normal external ear exam and other (R nare with bleeding) Neck Neck exam: Present normal inspection and full ROM Chest Chest inspection: Present normal inspection and symmetric chest wall rise Respiratory Respiratory exam: Present normal lung sounds bilaterally; Absent respiratory distress or wheezes Cardiovascular Cardiovascular exam: Present regular rate, normal rhythm and normal heart sounds Abdominal Exam Abdominal exam: Present soft and distention; Absent tenderness, guarding or rebound Extremities Exam Extremities exam: Present normal inspection and full ROM Back Exam Back exam: Present normal inspection and full ROM Neurological Exam Neurological exam: Present alert and oriented X3 Psychiatric Psychiatric exam: Present normal affect and normal mood Skin Skin exam: Present warm and dry Medical Decision Making Medical Records Medical records reviewed: Yes I reviewed the patient's medical records. Screening: Per USPSTF and CDC recommendations, given the prevalence of disease in our region, it is our hospital?s policy to screen for HIV and viral Hepatitis for all patients aged 18 and over and those with ongoing risk factors. Adriel Inquiry Pt receiving controlled substance: No Vital Signs: 10/23/25 14:47 10/23/25 17:45 Temperature 97.9 F 98.1 F Temperature Source Oral Oral Pulse Rate 75 Pulse Rate [Right] 72 Respiratory Rate 16 15 Blood Pressure 125/74 Blood Pressure [Right Arm] 106/59 L Blood Pressure Mean [Right Arm] 74 Blood Pressure Source Automatic Cuff Blood Pressure Position Sitting 02 Sat by Pulse Oximetry 98 Oxygen Delivery Method Room Air Room Air Orders (Tests/Meds): ED MEDICATIONS Discontinued Medications Generic Name Dose Route Start Last Admin Trade Name Itz PRN Reason Stop Dose Admin Oxymetazoline HCl 0 ml 10/23/25 15:58 Oxymetazoline Nasal [place] 0.05% 15ml NS 10/23/25 15:59 ONCE ONE Medical Decision Narrative: Patient is a 25-year-old female who is currently who presents to the emergency department with epistaxis. On arrival, patient was hemodynamically stable with unremarkable vital signs. Differential includes but not limited to: Anterior epistaxis, posterior epistaxis, significant anemia, iron deficiency anemia, amongst others. On exam, patient did have some bleeding from the right nare. Exam was otherwise unremarkable. Here in the emergency department, patient's nose bleeding stopped without any interventions. Patient was advised to blow her nose and Afrin was placed into the nare. I offered patient a Rhino Rocket despite her bleeding stopping and patient felt comfortable with not doing a Rhino Rocket at this time. Patient was sent with Afrin and instructions for if her nose continued to bleed again. Patient already has follow-up with ENT scheduled and I recommend that patient keep this appointment so they can further evaluate for her nosebleeds. I plan to get labs to check for anemia but patient refused these at this time. Patient was otherwise discharged home in stable condition, return precautions were discussed. Critical Care Critical Care Time Critical Care Time: No
[2025-10-23 17:45] VITALS: BP 125/74; PULSE 75; RESP 15; TEMP 36.7; O2SAT 99
== END 2025-10-23 17:45 | disposition home or self-care (01) ==
PROVIDERS: Emergency Provider Emergency Medicine; PCP Nurse Practitioner Family
DX: R04.0 Epistaxis (principal)
CPT/HCPCS: 99282